=== PATIENT | female | born 1960 | race Caucasian/White ===

== ENCOUNTER → 2016-06-16 | Outpatient (REF) | payer MEDICARE, MEDICAID ==
[~2016-06-16] MED LIST: /PANT40TA; ABIL2TAB; ADDE10TA OR; BACT800T5 PO; BACTRIM DS PO; CALC600T68 PO; CALCCHW12; CALCIUM PO; CONC54TA4 PO; FERR325T3 PO; FLUO40CA PO; FLUO60TA PO; LEVO112T; LEVO112T25 PO; LEVO125T3 PO; LEVO25TA2; METH54TA PO; METH54TA2 PO; OMEP40CA2 PO; PANT40TA2 PO; PREV15CA; PROZ20CA; QUET30XR; QUET30XR PO; SERO1TAB2 PO; SERO400T3 PO; SIMV40TA2 PO; TRAZ100T4 PO; TRAZ150T; TRAZ150T14 PO; TRAZ300T2; VIT D PO; VITA200028 PO; VITA250L PO; WELL75TA; ZOCO40TA; ZOCO5TAB
[2016-06-17 12:35] LABS: ALBUMIN/GLOBULIN RATIO 1.18 (1.00-1.93); ALKALINE PHOSPHATASE 89 U/L (45-117); ALT/SGPT 31 U/L (12-78); ANION GAP 10 MEQ/L (8-16); AST/SGOT 17 U/L (15-37); BILIRUBIN,TOTAL 0.4 MG/DL (0.2-1.0); BLOOD UREA NITROGEN 14 MG/DL (7-18); CALCIUM LEVEL 9.2 MG/DL (8.5-10.1); CARBON DIOXIDE LEVEL 28 MEQ/L (21-32); CHLORIDE LEVEL 104 MEQ/L (98-107); CHOLESTEROL LEVEL 190 MG/DL (<200); CREATININE FOR GFR 0.78 MG/DL (0.55-1.02); FREE T4 0.82 NG/DL (0.76-1.46); GLOMERULAR FILTRATION RATE > 60.0 (>51); GLUCOSE, FASTING 82 MG/DL (70-105); POTASSIUM SERUM 4.2 MEQ/L (3.5-5.1); SODIUM LEVEL 142 MEQ/L (136-145); TOTAL PROTEIN 7.4 GM/DL (6.4-8.2); TRIGLYCERIDES LEVEL 130 MG/DL (<150)
== END ==
LOC: M SFHCPLAZ 15:09 → M LABDRAWC 15:20
PROVIDERS: ATTEND Family Medicine
DX: E78.2 Mixed hyperlipidemia (principal); E03.9 Hypothyroidism, unspecified; R73.01 Impaired fasting glucose

== ENCOUNTER → 2016-08-19 | Outpatient (REF) | payer MEDICARE, MEDICAID, OTHER | LOC: M SMT 13:10 | PROVIDERS: ATTEND Nurse Practitioner Family | DX: N39.41 Urge incontinence (principal) | CPT/HCPCS: 51798; 81001; 87086; G0463 ==

== ENCOUNTER → 2016-09-21 | Outpatient (CLI) | payer MEDICARE | LOC: M WHC 13:47 | PROVIDERS: ATTEND Family Medicine | DX: Z12.31 Encounter for screening mammogram for malignant neoplasm of breast (principal) ==

== ENCOUNTER → 2016-11-19 | Outpatient (REF) | payer MEDICARE, MEDICAID | LOC: M SFHCWAGY 14:08 | PROVIDERS: ATTEND Nurse Practitioner Family | DX: Z12.72 Encounter for screening for malignant neoplasm of vagina (principal) ==

== ENCOUNTER → 2016-11-19 | Outpatient (CLI) | payer MEDICARE, MEDICAID ==
[~2016-11-19] MED LIST changes: +BRIN1TAB3 PO; +CIPR-249 PO; +CRES10TA32 PO; +DRIS50002 PO; +FERR1TAB8 PO; -LEVO125T3 PO; +LEVO125T4 PO; +OXCA300T PO; +PARO5TAB PO; +PAXI30TA11 PO; +ROSU40TA PO; +TRAZ-136 PO; -TRAZ100T4 PO; -TRAZ150T14 PO; +TRAZ1TAB14 PO; +TRIA1CR TOP; +vitamin d PO
--- NOTE | 2016-11-19 14:51 | REPMRS ---
Patient History The patient states she had a clinical breast exam in 11/14 Patient is postmenopausal. No known family history of cancer. Digital Woman Screen Mammo: November 19, 2016 - Exam #: [id number] Bilateral CC and MLO view(s) were taken. Technologist: Radha Long, Technologist Prior study comparison: November 19, 2015, digital woman screen mammo performed at [facility] to [facility]. September 19, 2014, digital woman screen mammo performed at [facility] to [facility]. FINDINGS: There are scattered fibroglandular densities. There has been no change in the appearance of the mammogram from the prior studies. There is a mild amount of residual fibroglandular tissue which is fairly symmetric. There is no interval development of dominant mass, architectural distortion, or clustered microcalcification suggestive of malignancy. ASSESSMENT: BI-RADS/ACR category 1 mammogram. Negative. Recommendation Routine screening mammogram in 1 year (for women over age 40). This mammogram was interpreted with the aid of an FDA-approved computer-aided dectection system. Electronically Signed By: Dragan Maldonado MD 11/19/16 [id number]
== END ==
LOC: M WHC 13:28
PROVIDERS: ATTEND Nurse Practitioner Family
DX: Z12.31 Encounter for screening mammogram for malignant neoplasm of breast (principal); Z78.0 Asymptomatic menopausal state; Z12.72 Encounter for screening for malignant neoplasm of vagina; Z12.12 Encounter for screening for malignant neoplasm of rectum
CPT/HCPCS: 82270; G0123; G0202; G0463

== ENCOUNTER → 2016-12-09 | Outpatient (REF) | payer MEDICARE, MEDICAID ==
[2016-12-09 18:18] LABS: VITAMIN B12 LEVEL 516 PG/ML (247-911)
[2016-12-09 18:21] LABS: ALBUMIN 3.9 GM/DL (3.2-5.2); ALBUMIN/GLOBULIN RATIO 1.18 (1.00-1.93); ALKALINE PHOSPHATASE 66 U/L (45-117); ALT/SGPT 32 U/L (12-78); ANION GAP 7 MEQ/L (8-16); AST/SGOT 24 U/L (15-37); BILIRUBIN,TOTAL 0.3 MG/DL (0.2-1.0); BLOOD UREA NITROGEN 12 MG/DL (7-18); CALCIUM LEVEL 9.2 MG/DL (8.5-10.1); CARBON DIOXIDE LEVEL 25 MEQ/L (21-32); CHLORIDE LEVEL 107 MEQ/L (98-107); CHOLESTEROL LEVEL 158 MG/DL (<200); CREATININE FOR GFR 0.83 MG/DL (0.55-1.02); FERRITIN 51 NG/ML (8-252); FREE T4 0.84 NG/DL (0.76-1.46); GLOMERULAR FILTRATION RATE > 60.0 (>51); GLUCOSE, FASTING 97 MG/DL (70-105); PERCENT SATURATION 13.8 % (13.2-37.4); POTASSIUM SERUM 4.4 MEQ/L (3.5-5.1); SODIUM LEVEL 139 MEQ/L (136-145); TOTAL IRON BINDING CAPACITY 341 UG/DL (250-450); TOTAL PROTEIN 7.2 GM/DL (6.4-8.2); TRIGLYCERIDES LEVEL 115 MG/DL (<150)
[2016-12-09 18:32] LABS: BASO % 0.6 % (0.0-1.0); EOS # 0.1 K/mm3 (0.0-0.50); EOS % 0.8 % (0.0-3.0); LARGE UNSTAINED CELL # 0.1 K/mm3 (0.0-0.4); LARGE UNSTAINED CELL % 1.4 % (0.0-4.0); LYMPH # 1.9 K/mm3 (1.5-4.5); MEAN CORPUSCULAR HEMOGLOBIN 30.5 pg (27.0-33.0); MEAN CORPUSCULAR HGB CONC 33.3 g/dl (32.0-36.5); MEAN CORPUSCULAR VOLUME 91.5 fl (80.0-96.0); MONO # 0.4 K/mm3 (0.0-0.8); MONO % 4.6 % (0.0-5.0); NEUTROPHILS # 6.5 K/mm3 (1.8-7.7); NEUTROPHILS % 71.6 % (36.0-66.0); PLATELET COUNT, AUTOMATED 282 k/mm3 (150-450); RED CELL DISTRIBUTION WIDTH 13.9 % (11.5-14.5)
== END ==
LOC: M SFHCCLAY 08:19
PROVIDERS: ATTEND Family Medicine
DX: D50.9 Iron deficiency anemia, unspecified (principal); E78.2 Mixed hyperlipidemia; E53.8 Deficiency of other specified B group vitamins

== ENCOUNTER → 2017-02-10 | Outpatient (REF) | payer MEDICARE, MEDICAID ==
[2017-02-11 13:50] LABS: FREE T4 1.05 NG/DL (0.76-1.46)
[2017-02-11 14:09] LABS: ADD MANUAL DIFFER YES; MEAN CORPUSCULAR HEMOGLOBIN 31.1 pg (27.0-33.0); MEAN CORPUSCULAR HGB CONC 33.8 g/dl (32.0-36.5); PLATELET COUNT, AUTOMATED 271 k/mm3 (150-450); RED CELL DISTRIBUTION WIDTH 12.7 % (11.5-14.5); WHITE BLOOD COUNT 6.4 K/mm3 (4.0-10.0)
[2017-02-11 15:01] LABS: BASOPHILS 2 % (0-4); EOSINOPHILS 1 % (0-5)
== END ==
LOC: M SFHCCLAY 15:22
PROVIDERS: ATTEND Family Medicine
DX: D50.9 Iron deficiency anemia, unspecified (principal); R73.01 Impaired fasting glucose; E03.9 Hypothyroidism, unspecified

== ENCOUNTER 2017-03-23 14:14 | Inpatient (IN) | payer MEDICARE, MEDICAID ==
[~2017-03-23] VITALS: Ht 157.5 cm; Wt 85.0 kg
[~2017-03-23 14:14] MED LIST changes: -BRIN1TAB3 PO; -CIPR-249 PO; -CRES10TA32 PO; -DRIS50002 PO; -FERR1TAB8 PO; -OXCA300T PO; -PARO5TAB PO; -PAXI30TA11 PO; -ROSU40TA PO; -TRIA1CR TOP; -vitamin d PO
[2017-03-23] MEDS ORDERED: vitamin d PO (14:37)
[2017-03-23] MEDS ORDERED: SERO1TAB2 PO (14:37)
[2017-03-23] MEDS ORDERED: BRIN1TAB3 PO (14:37)
[2017-03-23] MEDS ORDERED: CRES10TA32 PO (14:37)
[2017-03-23] MEDS ORDERED: TRAZ-136 PO (14:37)
[2017-03-23] MEDS ORDERED: TRIA1CR TOP (14:51)
[2017-03-23] MEDS ORDERED: NICOTINE 21MG/24HR 1 EA TRANSDERMAL TD ONE (15:15)
[2017-03-23 15:16] LABS: MEAN CORPUSCULAR HEMOGLOBIN 29.5 pg (27.0-33.0); MEAN CORPUSCULAR HGB CONC 33.9 g/dl (32.0-36.5); MEAN CORPUSCULAR VOLUME 87.1 fl (80.0-96.0); PLATELET COUNT, AUTOMATED 319 10^3/uL (150-450); RED CELL DISTRIBUTION WIDTH 13.2 % (11.5-14.5); WHITE BLOOD COUNT 9.8 10^3/uL (4.0-10.0)
[2017-03-23 15:51] LABS: METHADONE URINE NEGATIVE (NEGATIVE)
[2017-03-23 16:03] LABS: ALBUMIN 4.3 GM/DL (3.2-5.2); ALBUMIN/GLOBULIN RATIO 1.23 (1.00-1.93); ALKALINE PHOSPHATASE 71 U/L (45-117); ALT/SGPT 42 U/L (12-78); ANION GAP 9 MEQ/L (8-16); AST/SGOT 26 U/L (15-37); BILIRUBIN,DIRECT 0.1 MG/DL (0.0-0.2); BILIRUBIN,TOTAL 0.3 MG/DL (0.2-1.0); BLOOD UREA NITROGEN 16 MG/DL (7-18); CALCIUM LEVEL 9.3 MG/DL (8.5-10.1); CARBON DIOXIDE LEVEL 25 MEQ/L (21-32); CHLORIDE LEVEL 105 MEQ/L (98-107); GLOMERULAR FILTRATION RATE > 60.0 (>51); GLUCOSE, FASTING 98 MG/DL (70-105); POTASSIUM SERUM 4.2 MEQ/L (3.5-5.1); SODIUM LEVEL 139 MEQ/L (136-145); TOTAL PROTEIN 7.8 GM/DL (6.4-8.2)
[2017-03-23] MEDS ORDERED: FERR1TAB8 PO (16:07)
[2017-03-23] MEDS ORDERED: ROSU40TA PO (16:07)
[2017-03-23] MEDS ORDERED: DRIS50002 PO (16:07)
[2017-03-23] MEDS ORDERED: diphenhydrAMINE 25 MG CAP PO PRN (16:45)
[2017-03-23] MEDS ORDERED: ACETAMINOPHEN TAB 650MG DOSE (2X325MG) PO PRN (16:45)
[2017-03-23] MEDS ORDERED: MAALOX 30 ML SUSP *UDC PO PRN (16:45)
[2017-03-23 17:55] VITALS: BP 112/67
[2017-03-23] MEDS ORDERED: TRIAMCINOLONE ACET 0.1% CREAM 80 GM TOP SCH (21:00)
[2017-03-23] MEDS ORDERED: traZODone 100 MG TAB PO SCH ×2 (21:00)
[2017-03-23] MEDS: OMEPRAZOLE 20 MG CAP PO SCH (21:13)
[2017-03-23] MEDS: QUEtiapine FUMARATE 100 MG TAB PO SCH (21:13)
[2017-03-23] MEDS: CALCIUM/VITAMIN D 500 MG TAB PO SCH (21:13)
[2017-03-24] MEDS: LEVOTHYROXINE 125MCG TABLET (0.125MG) PO SCH (06:16)
[2017-03-24 07:06] VITALS: BP 122/64
[2017-03-24] MEDS: NICOTINE 21MG/24HR 1 EA TRANSDERMAL TD SCH (08:22)
[2017-03-24] MEDS: CALCIUM/VITAMIN D 500 MG TAB PO SCH ×2 (08:22→21:01)
[2017-03-24] MEDS: OMEPRAZOLE 20 MG CAP PO SCH ×2 (08:22→21:01)
[2017-03-24] MEDS: FERROUS SULFATE 325MG TAB PO SCH (08:22)
--- NOTE | 2017-03-24 09:37 | HPEPDOC ---
[facility] Medical History & Physical Date of Admission Mar 23, 2017 History and Physical PCP: Dr Ken ATTENDING: Dr. Sameer Morton HPI: 56yoF admitted to [facility] for unspecified depressive disorder, being medically examined today. Patient states she has been applying triamcinolone cream to a rash on the buttocks. She states this has been helping with the itching however the rash has persisted. Denies any fevers, chills, weakness, fatigue, ARIAS, CP, SOB, cough, palpitations, abdominal pain, N/V/D or changes in bowel or bladder habits. PMHx: Fibromyalgia Anxiety Depression Insomnia Hypothyroid GERD Dyslipidemia Iron deficiency anemia Vitamin D deficiency PSHX: Pacemaker 12/11 Hysterectomy Left clavicle fracture repair 1979 SOCHX: Resides in: [facility] Marital Status: Kids: 2 Employment: Retired machinery cleaner/senior staff psychologist Tobacco use: 10 per day ETOH: Denies Illicit Drugs: Denies IV Drug Use: Denies Tattoos done unprofessionally: Denies FAMHX: Mother: Alive, well Father: , 34 years old [place]. Siblings: One brother one sister Alive, depression Children: Alive, OCD, anxiety Unexpected deaths due to medical reasons: Maternal grandmother suicide, overdose. ROS: As noted in HPI, otherwise 11pt ROS of systems reviewed and remarkable only for LMP NA, hysterectomy. PE: GEN: 56 yo F, appears stated age. Well-nourished, well developed. No acute distress. Alert and oriented x 3. Pleasant, interactive. HEENT: Normocephalic, atraumatic. Pupils are equal, round, and reactive to light. Extraocular movements are intact. No nystagmus appreciated. Sclera are nonicteric. Conjunctiva without injection. Nose midline. Nasal turbinates without bogginess. EACs both patent BL. TMs both visualized and mcclellan with good cone of light, no bulging or erythema. No facial asymmetry. Moist mucous membranes. Dentition fair. Pharynx pink and moist, no cobblestoning. Neck supple , trachea midline. No lymphadenopathy or thyromegaly appreciated. CHEST: Regular rate and rhythm, +S1, +S2 LUNGS: Clear to auscultation bilaterally. No wheezes, rales, or rhonchi. Breathing appears symmetric and easy. Patient is speaking in full sentences. No accessory muscle use. ABD: Round, soft, non-tender, non-distended. +Bowel sounds throughout. No rebound or guarding. No costovertebral angle tenderness. EXT: Pulses 2+ bilaterally dorsalis pedis and radial. No lower extremity edema appreciated. SKIN: Braman, dry, warm. Capillary refill <2sec. mildly erythematous rash with scaling is noted, circular in nature buttock area bilaterally. NEURO: Alert and oriented x 3. Cranial nerves III-XII are intact. No focal deficits appreciated. EKG: Pending. A&P: 56yoF admitted to [facility] for unspecified depressive disorder 1. Psych. Plan per Psychiatry. Obtain baseline EKG to assure the safety of psychiatric medications as they can prolong the QT interval. 2. Nicotine dependence. Patch available. 3. Rash, Buttocks B/L. Apply Lotrisone cream to area BID. 4. Follow up with PCP on discharge. 5. Hypothyroid. Continue levothyroxine under 25 g daily. 6. GERD. Continue Prilosec 40 mg by mouth twice a day. 7. Dyslipidemia. Continue store 40 mg daily. 8. History of iron deficiency. Continue ferrous sulfate 325 mg daily. 9. Vitamin D deficiency. Continue Drisdol 50,000 units every 2 weekly. 10. Obesity. BMI is noted to be 34.1. TSH is within normal limits. Hemoglobin A1c 02/14 is noted to be 5.8. 11. Staff member Stephanie JARAMILLO present throughout exam. Vital Signs Vital Signs Date Time Temp Pulse Resp B/P (MAP) Pulse Ox O2 Delivery O2 Flow Rate FiO2 03/24/17 07:06 97.2 76 16 122/64 (83) Room Air 03/23/17 17:15 98 Laboratory Data Labs 24H Laboratory Tests 2 03/23/17 15:06: Nucleated Red Blood Cells % (auto) 0.0, Anion Gap 9, Glomerular Filtration Rate > 60.0, Calcium Level 9.3, Aspartate Amino Transf (AST/SGOT) 26, Alanine Aminotransferase (ALT/SGPT) 42, Alkaline Phosphatase 71, Total Bilirubin 0.3, Direct Bilirubin 0.1, Total Protein 7.8, Albumin 4.3, Albumin/Globulin Ratio 1.23, Thyroid Stimulating Hormone (TSH) 2.380, Salicylates Level < 1.7L, Urine Amphetamines Screen NEGATIVE, Urine Benzodiazepines Screen NEGATIVE, Urine Opiates Screen NEGATIVE, Urine Methadone Screen NEGATIVE, Acetaminophen Level < 2.0L, Urine Barbiturates Screen NEGATIVE, Urine Phencyclidine Screen NEGATIVE, Urine Cocaine Metabolite Screen NEGATIVE, Urine Cannabinoids Screen NEGATIVE, Ethyl Alcohol Level 0.004 CBC/BMP Laboratory Tests 03/23/17 15:06 Red Blood Count 4.81, Mean Corpuscular Volume 87.1, Mean Corpuscular Hemoglobin 29.5, Mean Corpuscular Hemoglobin Concent 33.9, Red Cell Distribution Width 13.2 Home Medications Scheduled Calcium/Vitamin D (Calcium 600+D3 600-400 mg-Unit) 1 Tab Tab, 1 TAB PO BID for supplement Ferrous Sulfate (Ferrous Sulfate) 325 Mg Tab, 325 MG PO DAILY Levothyroxine Sodium (Synthroid) 125 Mcg Tab, 125 MCG PO DAILY for hypothyroid Omeprazole (Omeprazole) 40 Mg Cap, 40 MG PO BID for gerd Quetiapine Fumarate (Seroquel) 300 Mg Tab, 300 MG PO QHS Rosuvastatin Calcium (Rosuvastatin Calcium) 40 Mg Tab, 40 MG PO DAILY Trazodone HCl (Trazodone HCl) 100 Mg Tab, 200 MG PO QHS Triamcinolone Acet (Triamcinolone Acetonide 0.1% Crm) 1 Dose/15 Gm Cr, 1 DOSE TOP BID APPLY RECTALLY Vitamin D (Drisdol) 50,000 Unit Cap, 50,000 UNIT PO Q2WK EVERY OTHER WEDNESDAY Vortioxetine Hydrobromide (Trintellix) 20 Mg Tab, 20 MG PO DAILY Allergies Coded Allergies: No Known Drug Allergy (Verified Allergy, Unknown, 09/06/12) Jolene Carbajal Mar 24, 2017 09:37
[2017-03-24] MEDS: PARoxetine 10MG TABLET PO SCH (14:32)
[2017-03-24] MEDS: OXcarbazepine 150 MG TAB PO SCH ×2 (14:32→21:02)
[2017-03-24] MEDS: LOTRISONE CREAM 15 GM (BETAMETH/CLOTRIMAZOLE) TOP SCH ×2 (14:33→21:01)
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
[2017-03-24 18:00] VITALS: BP 140/82
[2017-03-24] MEDS: ROSUVASTATIN 10 MG TAB (CRESTOR) PO SCH (21:01)
[2017-03-24] MEDS: QUEtiapine FUMARATE 100 MG TAB PO SCH (21:02)
[2017-03-25] MEDS: LEVOTHYROXINE 125MCG TABLET (0.125MG) PO SCH (06:03)
[2017-03-25 07:02] VITALS: BP 102/63
[2017-03-25] MEDS: OMEPRAZOLE 20 MG CAP PO SCH ×2 (08:35→21:13)
[2017-03-25] MEDS: NICOTINE 21MG/24HR 1 EA TRANSDERMAL TD SCH (08:35)
[2017-03-25] MEDS: LOTRISONE CREAM 15 GM (BETAMETH/CLOTRIMAZOLE) TOP SCH ×2 (08:35→21:12)
[2017-03-25] MEDS: CALCIUM/VITAMIN D 500 MG TAB PO SCH ×2 (08:36→21:13)
[2017-03-25] MEDS: PARoxetine 10MG TABLET PO SCH (08:36)
[2017-03-25] MEDS: FERROUS SULFATE 325MG TAB PO SCH (08:36)
[2017-03-25] MEDS: OXcarbazepine 150 MG TAB PO SCH ×2 (08:36→21:13)
[2017-03-25] MEDS: MOM 30ML SUSPENSION UDC PO PRN (08:39)
[2017-03-25] MEDS ORDERED: OXcarbazepine 150 MG TAB PO ONE (10:45)
[2017-03-25] MEDS ORDERED: PARoxetine 10MG TABLET PO ONE (10:45)
[2017-03-25 18:00] VITALS: BP 108/64
--- NOTE | 2017-03-25 20:13 | MHIPN ---
DATE: 03/25/2017 HISTORY: 56-year-old female with history of depression and anxiety admitted on a 9.39 legal status. The patient was expressing suicidal ideation and was unable to contract for safety. MEDICATIONS: - Paxil 10 mg by mouth every morning - Trileptal 75 mg by mouth twice a day - Seroquel 300 mg by mouth nightly SUBJECTIVE: "I'm feeling about the same, I'm crying all day long." OBJECTIVE: No major changes from yesterday. The patient is very labile, tearful, and states that she cries for minimal things happening around her. Patient is denying side effect from the medication. Patient was able to sleep with the help of Seroquel. Discussed treatment plan. MENTAL STATUS EXAMINATION: Patient is dressed in [facility]. Patient is cooperative, has poor eye contact. Speech is slow and monotone. Mood is depressed and anxious. Affect is restricted. No delusions or hallucinations. Mood is fair. Patient is fully oriented. Associations are intact. Thinking is logical. Thought content is appropriate. Patient continues without suicidal ideation. Denies homicidal thoughts. Insight and judgment is poor. ASSESSMENT: 1. Major depressive disorder. 2. Generalized anxiety disorder. 3. Attention deficit disorder (ADD). PLAN: 1. Increase Paxil to 20 mg by mouth every morning. 2. Increase Trileptal to 150 mg by mouth twice a day. 3. Continue with Seroquel 300 mg by mouth nightly. 4. Continue medication management, individual and group therapy.
[2017-03-25] MEDS: ROSUVASTATIN 10 MG TAB (CRESTOR) PO SCH (21:13)
[2017-03-25] MEDS: QUEtiapine FUMARATE 100 MG TAB PO SCH (21:13)
[2017-03-26] MEDS: LEVOTHYROXINE 125MCG TABLET (0.125MG) PO SCH (05:57)
[2017-03-26 06:53] VITALS: BP 100/53
[2017-03-26] MEDS: FERROUS SULFATE 325MG TAB PO SCH (08:27)
[2017-03-26] MEDS: PARoxetine 20 MG TAB PO SCH (08:27)
[2017-03-26] MEDS: OMEPRAZOLE 20 MG CAP PO SCH ×2 (08:27→21:30)
[2017-03-26] MEDS: NICOTINE 21MG/24HR 1 EA TRANSDERMAL TD SCH (08:27)
[2017-03-26] MEDS: OXcarbazepine 150 MG TAB PO SCH (08:28)
[2017-03-26] MEDS: CALCIUM/VITAMIN D 500 MG TAB PO SCH ×2 (08:28→21:29)
[2017-03-26] MEDS: LOTRISONE CREAM 15 GM (BETAMETH/CLOTRIMAZOLE) TOP SCH ×2 (08:28→21:29)
[2017-03-26] MEDS: MOM 30ML SUSPENSION UDC PO PRN (14:28)
[2017-03-26 18:00] VITALS: BP 99/58
[2017-03-26] MEDS: ROSUVASTATIN 10 MG TAB (CRESTOR) PO SCH (21:29)
[2017-03-26] MEDS: OXcarbazepine 300 MG TAB PO SCH (21:30)
[2017-03-26] MEDS: QUEtiapine FUMARATE 100 MG TAB PO SCH (21:30)
[2017-03-27] MEDS: LEVOTHYROXINE 125MCG TABLET (0.125MG) PO SCH (05:56)
[2017-03-27 07:06] VITALS: BP 98/65
[2017-03-27] MEDS: PARoxetine 20 MG TAB PO SCH (08:46)
[2017-03-27] MEDS: OMEPRAZOLE 20 MG CAP PO SCH ×2 (08:46→20:49)
[2017-03-27] MEDS: CALCIUM/VITAMIN D 500 MG TAB PO SCH ×2 (08:46→20:49)
[2017-03-27] MEDS: FERROUS SULFATE 325MG TAB PO SCH (08:46)
[2017-03-27] MEDS: LOTRISONE CREAM 15 GM (BETAMETH/CLOTRIMAZOLE) TOP SCH ×2 (08:46→20:49)
[2017-03-27] MEDS: OXcarbazepine 300 MG TAB PO SCH ×2 (08:46→20:49)
[2017-03-27] MEDS: NICOTINE 21MG/24HR 1 EA TRANSDERMAL TD SCH (08:48)
--- NOTE | 2017-03-27 14:09 | MHIPN ---
DATE OF SERVICE: 03/26/2017 HISTORY: 56-year-old female with history of depression and anxiety admitted on a 9.39 legal status. She was very depressed, expressing suicidal thoughts and unable to contract for safety. MEDICATIONS: - Paxil 20 mg by mouth every morning - Trileptal 150 mg by mouth twice a day - Seroquel 300 mg by mouth at bedtime SUBJECTIVE: "I am not feeling better, I am very anxious". OBJECTIVE: The patient continues very depressed, although she reports that the day before she was crying all the time and appears to be holding her emotions better today. The patient is able to contract for safety while in the hospital. The patient is denying side effect from the medication. The patient could not sleep well last night in spite of the medication. There is no evidence of psychotic symptoms. No auditory or visual hallucinations or delusions. MENTAL STATUS EXAMINATION: The patient is dressed in [facility]. The patient is cooperative. She has fair eye contact. Speech is slow and monotone. Mood is depressed and very anxious. Affect is labile. No evidence of delusions or hallucinations. Memory is fair. Patient is fully oriented. Associations are intact. Thinking is logical. Thought content is appropriate. The patient continues to have suicidal thoughts, but is able to contract for safety during the interview. Insight and judgment is limited. ASSESSMENT: 1. Major depressive disorder. 2. Generalized anxiety disorder. 3. Attention deficit disorder. PLAN: 1. Continue Paxil 20 mg by mouth every morning. 2. Increase Trileptal to 300 mg by mouth twice a day. 3. Continue Seroquel 300 mg by mouth at bedtime. 4. Continue medication management, individual and group therapy.
[2017-03-27 18:00] VITALS: BP 105/70
[2017-03-27] MEDS: QUEtiapine FUMARATE 100 MG TAB PO SCH (20:49)
[2017-03-27] MEDS: ROSUVASTATIN 10 MG TAB (CRESTOR) PO SCH (20:49)
[2017-03-28 06:00] VITALS: BP 101/53
[2017-03-28] MEDS: LEVOTHYROXINE 125MCG TABLET (0.125MG) PO SCH (06:16)
[2017-03-28] MEDS: NICOTINE 21MG/24HR 1 EA TRANSDERMAL TD SCH (08:49)
[2017-03-28] MEDS: OMEPRAZOLE 20 MG CAP PO SCH ×2 (08:55→21:09)
[2017-03-28] MEDS: OXcarbazepine 300 MG TAB PO SCH ×2 (08:55→21:09)
[2017-03-28] MEDS: CALCIUM/VITAMIN D 500 MG TAB PO SCH ×2 (08:55→21:09)
[2017-03-28] MEDS: FERROUS SULFATE 325MG TAB PO SCH (08:55)
[2017-03-28] MEDS: PARoxetine 20 MG TAB PO SCH (08:55)
[2017-03-28] MEDS: LOTRISONE CREAM 15 GM (BETAMETH/CLOTRIMAZOLE) TOP SCH ×2 (08:57→21:10)
--- NOTE | 2017-03-28 14:33 | MHIPN ---
DATE OF SERVICE: 03/27/2017 HISTORY: 56-year-old female with history of depression and anxiety admitted on 9.39 legal status. The patient was very depressed and expressing suicidal thoughts and unable to contract for safety. MEDICATIONS: - Paxil 20 mg by mouth every morning - Trileptal 300 mg by mouth twice a day - Seroquel 300 mg by mouth at bedtime SUBJECTIVE: "I am not feeling well". OBJECTIVE: The patient is labile, tearful this morning. Says could not sleep last night as she kept waking up very often. She is very anxious. Denies side effect from the medication. MENTAL STATUS EXAMINATION: The patient is dressed in [facility]. The patient is cooperative during the exam. Speech is slow and monotone. Mood is depressed and anxious. Affect is labile. No delusions or hallucinations. Memory is fair. Patient is fully oriented. Associations are intact. Thinking is logical. Thought content is appropriate. Patient continues with intermittent suicidal thoughts. No homicidal ideation. Insight and judgment is limited. ASSESSMENT: 1. Major depressive disorder. 2. Generalized anxiety disorder. 3. Attention deficit disorder. PLAN: 1. Continue with Paxil 20 mg by mouth every morning. 2. Continue Trileptal 300 mg by mouth twice a day. 3. Continue Seroquel 300 mg by mouth at bedtime. 4. Continue medication management, individual and group therapy.
[2017-03-28] MEDS: MOM 30ML SUSPENSION UDC PO PRN (16:47)
[2017-03-28 18:00] VITALS: BP 106/72
[2017-03-28] MEDS: ROSUVASTATIN 10 MG TAB (CRESTOR) PO SCH (21:09)
[2017-03-28] MEDS: QUEtiapine FUMARATE 100 MG TAB PO SCH (21:09)
[2017-03-29] MEDS: LEVOTHYROXINE 125MCG TABLET (0.125MG) PO SCH (05:57)
[2017-03-29 06:23] VITALS: BP 98/50
[2017-03-29] MEDS: NICOTINE 21MG/24HR 1 EA TRANSDERMAL TD SCH (08:51)
[2017-03-29] MEDS: FERROUS SULFATE 325MG TAB PO SCH (08:53)
[2017-03-29] MEDS: OMEPRAZOLE 20 MG CAP PO SCH ×2 (08:54→20:27)
[2017-03-29] MEDS: OXcarbazepine 300 MG TAB PO SCH ×2 (08:54→20:27)
[2017-03-29] MEDS: PARoxetine 20 MG TAB PO SCH (08:54)
[2017-03-29] MEDS: CALCIUM/VITAMIN D 500 MG TAB PO SCH ×2 (08:54→20:27)
[2017-03-29] MEDS: LOTRISONE CREAM 15 GM (BETAMETH/CLOTRIMAZOLE) TOP SCH ×2 (08:55→20:28)
[2017-03-29 18:00] VITALS: BP 107/69
[2017-03-29] MEDS: CIPROFLOXACIN 500 MG TAB PO SCH (18:22)
[2017-03-29] MEDS: QUEtiapine FUMARATE 100 MG TAB PO SCH (20:27)
[2017-03-29] MEDS: ROSUVASTATIN 10 MG TAB (CRESTOR) PO SCH (20:27)
[2017-03-30] MEDS: CIPROFLOXACIN 500 MG TAB PO SCH ×2 (06:15→17:17)
[2017-03-30] MEDS: LEVOTHYROXINE 125MCG TABLET (0.125MG) PO SCH (06:15)
[2017-03-30 06:42] VITALS: BP 110/76
[2017-03-30] MEDS ORDERED: VITAMIN D 50,000 UNITS CAPSULE (ERGOCALCIFEROL 1.25MG) PO SCH (09:00)
[2017-03-30] MEDS: NICOTINE 21MG/24HR 1 EA TRANSDERMAL TD SCH (09:00)
[2017-03-30] MEDS: OMEPRAZOLE 20 MG CAP PO SCH ×2 (09:56→21:08)
[2017-03-30] MEDS: PARoxetine 10MG TABLET PO SCH (09:56)
[2017-03-30] MEDS: CALCIUM/VITAMIN D 500 MG TAB PO SCH ×2 (09:56→21:08)
[2017-03-30] MEDS: LOTRISONE CREAM 15 GM (BETAMETH/CLOTRIMAZOLE) TOP SCH ×2 (09:56→21:09)
[2017-03-30] MEDS: OXcarbazepine 300 MG TAB PO SCH ×2 (09:57→21:08)
[2017-03-30] MEDS: FERROUS SULFATE 325MG TAB PO SCH (09:57)
--- NOTE | 2017-03-30 12:34 | IPN ---
DATE OF SERVICE: 03/29/2017 56-year-old female with history of depression and anxiety admitted on a 9.39 legal status. Patient was very depressed expressing suicidal thoughts and unable to contract for safety. MEDICATIONS: - Paxil 20 mg by mouth every morning - Trileptal 300 mg by mouth twice daily - Seroquel 300 mg by mouth daily at bedtime SUBJECTIVE: "I am very anxious and I cry". OBJECTIVE: Patient continues labile and depressed, tearful intermittently during the interview. Patient denies side effect from the medication but also is not feeling better at this point. Patient is worried about her treatment. Reports insomnia. MENTAL STATUS EXAMINATION: Patient is dressed in [facility]. Patient is cooperative during the exam. Speech is low and monotone. Mood is depressed and anxious. Affect is labile. No evidence of delusions or hallucinations. Memory is fair. Patient is fully oriented. Associations are intact. Thinking is logical. Thought content is appropriate. Insight and judgment is limited. ASSESSMENT: 1. Depression. 2. Generalized anxiety disorder. 3. Attention deficit. PLAN: 1. Continue Paxil 20 mg by mouth daily every morning. 2. Continue Trileptal 300 mg by mouth twice daily. 3. Continue Seroquel 300 mg by mouth daily at bedtime 4. Continue medication management, individual and group therapy.
[2017-03-30 18:00] VITALS: BP 109/75
[2017-03-30] MEDS: QUEtiapine FUMARATE 100 MG TAB PO SCH (21:08)
[2017-03-30] MEDS: ROSUVASTATIN 10 MG TAB (CRESTOR) PO SCH (21:08)
[2017-03-31] MEDS: LEVOTHYROXINE 125MCG TABLET (0.125MG) PO SCH (06:00)
[2017-03-31] MEDS: CIPROFLOXACIN 500 MG TAB PO SCH (06:00)
[2017-03-31 07:01] VITALS: BP 100/58
[2017-03-31] MEDS: NICOTINE 21MG/24HR 1 EA TRANSDERMAL TD SCH (08:56)
[2017-03-31] MEDS: OMEPRAZOLE 20 MG CAP PO SCH (08:57)
[2017-03-31] MEDS: FERROUS SULFATE 325MG TAB PO SCH (08:57)
[2017-03-31] MEDS: PARoxetine 10MG TABLET PO SCH (08:57)
[2017-03-31] MEDS: CALCIUM/VITAMIN D 500 MG TAB PO SCH (08:57)
[2017-03-31] MEDS ORDERED: CIPR-249 PO (08:58)
[2017-03-31] MEDS: OXcarbazepine 300 MG TAB PO SCH (08:58)
[2017-03-31] MEDS ORDERED: PARO5TAB PO (08:58)
[2017-03-31] MEDS ORDERED: DRIS50002 PO (08:58)
[2017-03-31] MEDS ORDERED: OXCA300T PO (08:58)
[2017-03-31] MEDS: LOTRISONE CREAM 15 GM (BETAMETH/CLOTRIMAZOLE) TOP SCH (08:58)
--- NOTE | 2017-03-31 10:33 | MHIPN ---
DATE OF SERVICE: 03/30/2017 56-year-old female with history of depression and anxiety admitted with suicidal thoughts and unable to contract for safety. MEDICATIONS: - Paxil 20 mg by mouth every morning - Trileptal 300 mg by mouth twice a day - Seroquel 300 mg by mouth nightly SUBJECTIVE: "I've been crying all morning". OBJECTIVE: Patient continues depressed and labile. She continues tearful. However, she denies side effect from the medications. She is highly anxious and says that cannot sleep in the hospital. We discussed the treatment plan. Patient denies suicidal ideation. We will schedule a family meeting. MENTAL STATUS EXAMINATION: Patient dressed in [facility]. Patient is cooperative with exam. Speech is low and monotone. Mood is depressed and anxious. Affect is labile. No evidence of delusions or hallucinations. Memory is fair. Patient is fully oriented. Associations are intact. Thinking is logical. Thought content is appropriate. Patient is denying suicidal ideation. Insight and judgment is limited. ASSESSMENT: 1. Depression. 2. Generalized anxiety disorder. 3. Attention deficit. PLAN: 1. Increase Paxil to 30 mg by mouth every morning. 2. Continue Trileptal 300 mg by mouth twice a day. 3. Continue Seroquel 300 mg by mouth nightly. 4. Continue medication management, individual and group therapy. 5. Patient is subhash for safety, is denying suicidal ideation. We will schedule a family meeting fro tomorrow and maybe discharge after the family meeting if patient continues denying suicidal thoughts and wait for the medications to be effective in outpatient basis.
[2017-03-31] MEDS ORDERED: PAXI30TA11 PO (14:10)
--- NOTE | 2017-04-01 11:58 | MHDS ---
DATE OF ADMISSION: 03/23/2017 DATE OF DISCHARGE: 03/31/2017 LEGAL STATUS AT ADMISSION: 9.39 legal status. HISTORY OF PRESENT ILLNESS: 56-year-old female with history of major depressive disorder, admitted on a 9.39 legal status. According to the records, patient was seen by Dr. Gonsalez and she told her she was very depressed and having suicidal thought. She was sent to emergency department and reported "I don't have interest on anything at all." Patient reported very low energy, feeling helpless, hopeless, worthless and suicidal ideation. There was no evidence of psychotic symptoms. No auditory or visual hallucinations or delusions. Patient reported that her first episode of depression was when she was 27 after 6 months of the of the second child. Said at that time the worse symptom was anxiety and that anxiety runs in the family. She stated that she has tendency to worry about everything and she finds herself preoccupied all the time. It is reported in the chart that she was started on Trintellix but says that this medication "is not helping." She also states that "this is the worst I felt in many years." LABORATORIES AT ADMISSION: Her CBC was unremarkable. CMP within normal limits. TSH within normal limits. Urine drug screen is negative. Blood alcohol level is negative. HOSPITAL COURSE: After the first evaluation, and given the fact that patient have poor results with prior to admission medication, it was decided to start Paxil at 10 mg by mouth every morning, which she tolerated it well, and was slowly increased up to 30 mg. She was also started on Trileptal increased up to 300 mg by mouth twice a day, and she continued taking Seroquel 300 mg by mouth nightly as she was taking in outpatient basis. It could be observed that one of the main problems with this patient is anxiety. She has tendency to worry about everything. She tolerated it well the medications. However, she did not tolerate well the hospitalization and was having problems staying asleep because of the roommates or activity of the unit or simply the rounding of the staff that has to check on patients. So, we discussed the treatment plan. Patient is denying any suicidal thoughts, is subhash for safety, and we talked about that we need to wait until the medication is effective, but in light that she is not having any suicidal thoughts, there is no evidence of any psychotic symptom, no auditory or visual hallucinations or delusions that she could be perfectly treated in outpatient basis. A meeting with the family was held before admission. So the patient is discharged on 03/31/2017 in stable condition, although she continues to feel depressed and anxiety, but she will be awaiting for the results of the current medication. MENTAL STATUS EXAMINATION AT DISCHARGE: Patient is dressed in casual clothes. Patient is cooperative. Speech is clear, coherent, with normal rate and is spontaneous. Patient has good eye contact. Mood is depressed and anxious. Affect is labile. Patient is oriented to time, place, person and situation. Maintains attention and concentration correctly. Instant recall, recent and remote memory are intact. Thought processes are chronological and goal directed. Patient does not have auditory or visual hallucinations. Patient does not have paranoid, persecutory, somatic, grandiose or buddhist delusions. Patient denies suicidal or homicidal ideation. Judgment and insight are fair. DISCHARGE DIAGNOSES: AXIS I: Major depressive disorder, generalized anxiety disorder,. attention deficit disorder (ADD0 by history, and alcohol dependency in complete recovery. AXIS II: Deferred. AXIS III: Fibromyalgia, hypothyroidism, gastroesophageal reflux disease (GERD), hypercholesterolemia, and history of bradycardia with pacemaker insertion. MEDICATIONS AT DISCHARGE: - Paxil 30 mg by mouth every morning - Trileptal 300 mg by mouth twice a day - Seroquel 300 mg by mouth nightly CONDITION AT DISCHARGE: Stable. No suicidal or homicidal ideation. No auditory or visual hallucinations. No delusions. INSTRUCTIONS TO THE PATIENT: Patient is to continue taking her medications as prescribed and followup appointments. She is advised to maintain absolute sobriety from drugs and alcohol. Patient has scheduled appointments for medication management, individual psychotherapy and primary care physician.
== END 2017-03-31 12:30 | disposition home or self-care (01) | DRG 881 ==
LOC: M ED 14:14 → M ED INP 16:42 → M PSY 17:22
PROVIDERS: ADMIT Psychiatry & Neurology Psychiatry; ATTEND Psychiatry & Neurology Psychiatry
DX: F32.9 Major depressive disorder, single episode, unspecified (principal); R45.851 Suicidal ideations; F41.1 Generalized anxiety disorder; F10.21 Alcohol dependence, in remission; F98.8 Other specified behavioral and emotional disorders with onset usually occurring in childhood and adolescence; E03.9 Hypothyroidism, unspecified; E78.5 Hyperlipidemia, unspecified; F17.210 Nicotine dependence, cigarettes, uncomplicated; R21 Rash and other nonspecific skin eruption; E66.9 Obesity, unspecified; K21.9 Gastro-esophageal reflux disease without esophagitis; E78.00 Pure hypercholesterolemia, unspecified; M79.7 Fibromyalgia; Z79.899 Other long term (current) drug therapy; Z90.710 Acquired absence of both cervix and uterus; Z95.0 Presence of cardiac pacemaker; Z68.34 Body mass index [BMI] 34.0-34.9, adult

== ENCOUNTER 2017-04-10 13:45 | Inpatient (IN) | payer MEDICARE, MEDICAID ==
[~2017-04-10] VITALS: Ht 160 cm; Wt 82.0 kg
[~2017-04-10 13:45] MED LIST changes: +BRIN1TAB3 PO; +CIPR-249 PO; +CRES10TA32 PO; +DRIS50002 PO; +FERR1TAB8 PO; +OXCA300T PO; +PARO5TAB PO; +PAXI30TA11 PO; +ROSU40TA PO; +TRIA1CR TOP; +vitamin d PO
[2017-04-10 14:52] LABS: MEAN CORPUSCULAR HEMOGLOBIN 29.7 pg (27.0-33.0); MEAN CORPUSCULAR HGB CONC 33.4 g/dl (32.0-36.5); MEAN CORPUSCULAR VOLUME 88.8 fl (80.0-96.0); PLATELET COUNT, AUTOMATED 320 10^3/uL (150-450); RED CELL DISTRIBUTION WIDTH 13.1 % (11.5-14.5); WHITE BLOOD COUNT 8.7 10^3/uL (4.0-10.0)
[2017-04-10 15:12] LABS: METHADONE URINE NEGATIVE (NEGATIVE)
[2017-04-10 15:24] LABS: ALBUMIN 4.2 GM/DL (3.2-5.2); ALBUMIN/GLOBULIN RATIO 1.17 (1.00-1.93); ALKALINE PHOSPHATASE 70 U/L (45-117); ALT/SGPT 34 U/L (12-78); ANION GAP 10 MEQ/L (8-16); AST/SGOT 19 U/L (7-37); BILIRUBIN,DIRECT 0.1 MG/DL (0.0-0.2); BILIRUBIN,TOTAL 0.4 MG/DL (0.2-1.0); BLOOD UREA NITROGEN 7 MG/DL (7-18); CALCIUM LEVEL 9.5 MG/DL (8.5-10.1); CARBON DIOXIDE LEVEL 27 MEQ/L (21-32); CHLORIDE LEVEL 103 MEQ/L (98-107); GLOMERULAR FILTRATION RATE > 60.0 (>51); GLUCOSE, FASTING 97 MG/DL (70-105); POTASSIUM SERUM 3.7 MEQ/L (3.5-5.1); SODIUM LEVEL 140 MEQ/L (136-145); TOTAL PROTEIN 7.8 GM/DL (6.4-8.2)
[2017-04-10] MEDS ORDERED: NICOTINE 21MG/24HR 1 EA TRANSDERMAL TD ONE (16:00)
[2017-04-10] MEDS ORDERED: MAALOX 30 ML SUSP *UDC PO PRN (16:45)
[2017-04-10] MEDS ORDERED: MOM 30ML SUSPENSION UDC PO PRN (16:45)
[2017-04-10] MEDS: OMEPRAZOLE 20 MG CAP PO SCH (20:25)
[2017-04-10] MEDS: QUEtiapine FUMARATE 100 MG TAB PO SCH (20:25)
[2017-04-10] MEDS: TRIAMCINOLONE ACET 0.1% CREAM 80 GM TOP SCH (20:26)
[2017-04-10] MEDS ORDERED: OXcarbazepine 300 MG TAB PO SCH (21:00)
[2017-04-10] MEDS: CALCIUM/VITAMIN D 500 MG TAB PO SCH (21:00)
[2017-04-10] MEDS: OXcarbazepine 300 MG TAB PO SCH (21:21)
[2017-04-11] MEDS: LEVOTHYROXINE 125MCG TABLET (0.125MG) PO SCH (05:44)
[2017-04-11 06:00] VITALS: BP 92/52
[2017-04-11] MEDS: OMEPRAZOLE 20 MG CAP PO SCH ×2 (08:10→20:27)
[2017-04-11] MEDS: PARoxetine 10MG TABLET PO SCH (08:10)
[2017-04-11] MEDS: FERROUS SULFATE 325MG TAB PO SCH (08:10)
[2017-04-11] MEDS: OXcarbazepine 300 MG TAB PO SCH (08:10)
[2017-04-11] MEDS: ROSUVASTATIN 10 MG TAB (CRESTOR) PO SCH (08:10)
[2017-04-11] MEDS: TRIAMCINOLONE ACET 0.1% CREAM 80 GM TOP SCH ×2 (08:11→20:28)
[2017-04-11] MEDS: CALCIUM/VITAMIN D 500 MG TAB PO SCH ×2 (10:29→20:27)
[2017-04-11] MEDS: NICOTINE 21MG/24HR 1 EA TRANSDERMAL TD SCH (10:30)
[2017-04-11] MEDS: lamoTRIgine 25 MG TAB PO SCH ×2 (11:53→20:28)
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
[2017-04-11 18:00] VITALS: BP 121/80
[2017-04-11] MEDS: OLANZapine 5 MG TAB PO SCH (20:28)
[2017-04-11] MEDS: QUEtiapine FUMARATE 100 MG TAB PO SCH (20:28)
[2017-04-11] MEDS: OXcarbazepine 150 MG TAB PO SCH (20:28)
--- NOTE | 2017-04-12 00:18 | HPE ---
DATE OF ADMISSION: 04/10/2017 HISTORY OF PRESENT ILLNESS: Please refer to psychiatric history and evaluation for further details on this admission. This examination and history is intended for medical issues, which may need treatment, followup or consult on this 56-year-old female. ALLERGIES: No known drug allergies. PRIMARY CARE PROVIDER: Dr. Ken. SOCIAL HISTORY: She resides in [place]. She is . She has two children. She smokes about 10 cigarettes per day. She does not drink alcohol. She does not use recreational drugs. PAST MEDICAL HISTORY: 1. Fibromyalgia. 2. Anxiety. 3. Depression. 4. Insomnia. 5. Hypothyroidism. 6. Gastroesophageal reflux disease (GERD). 7. Dyslipidemia. 8. Iron deficient anemia. 9. Vitamin D deficiency. PAST SURGICAL HISTORY: 1. Pacemaker 12/11. 2. Hysterectomy. 3. Left clavicle fracture repair 1979. FAMILY HISTORY: Mother is alive and well. Father is , 34 years old, myocardial infarction ([place]). Siblings: One brother, one sister alive with depression. REVIEW OF SYSTEMS: 11-point review of systems was performed, was unremarkable. Patient had no complaints other than the depression. LABORATORY STUDIES: CBC was normal. CMP was normal. Toxicology screen was negative. TSH was therapeutic at 3.0. EKG on file done 08/28/2015 showed normal sinus rhythm. HOME MEDICATIONS: - calcium/vitamin D 600/400 one by mouth twice a day - ferrous sulfate 325 one by mouth daily - omeprazole 40 mg by mouth twice a day - levothyroxine 125 mcg by mouth daily - Trileptal 300 mg by mouth twice a day - Paxil 30 mg by mouth every morning - Seroquel 300 mg by mouth nightly - Crestor 40 mg by mouth daily - Kenalog cream twice a day to rectal area - vitamin D 50,000 units one by mouth every 2 weeks PHYSICAL EXAMINATION: 56-year-old cooperative female in no acute distress. Height 63 inches, weight 81.8 kg, body mass index (BMI) 31.9. Blood pressure 116/84, pulse 70, respirations 18, temperature 98. Patient is alert and oriented times three. Pupils equal and react to light. Extraocular muscles intact. Cornea and sclerae clear. Conjunctivae were normal. No facial asymmetry. Pharynx, tongue and gums pink and moist. Tongue is midline. Neck is supple without lymphadenopathy. No thyromegaly, no goiter. Carotids 2+ without bruit. Chest clear to auscultation without wheeze or retraction. Heart is regular. Abdomen is benign. Bowel sounds positive. Genitourinary/rectal: Not done. Extremities show equal strength, full range of motion. No cyanosis, clubbing or edema. Peripheral pulses equal and palpable bilaterally. Cranial nerves III-XII grossly intact. IMPRESSION/PLAN: 1. Psychiatric plan per psychiatry. 2. Nicotine dependence. Patch available. 3. Cream to the rectal area twice a day. Followup with primary care on discharge. 4. Hypothyroidism. Continue levothyroxine at 125 mcg daily. Thyroid-stimulating hormone (TSH) is therapeutic. 5. Gastroesophageal reflux disease (GERD). Stable. Continue omeprazole. 6. Hypercholesterolemia. Continue Crestor. 7. History of iron deficiency. Continue ferrous sulfate. 8. Vitamin D deficiency. Continue Drisdol. No acute medical issues.
[2017-04-12 06:24] VITALS: BP 88/54
[2017-04-12] MEDS: LEVOTHYROXINE 125MCG TABLET (0.125MG) PO SCH (06:26)
[2017-04-12] MEDS: OMEPRAZOLE 20 MG CAP PO SCH ×2 (08:41→20:36)
[2017-04-12] MEDS: FERROUS SULFATE 325MG TAB PO SCH (08:41)
[2017-04-12] MEDS: CALCIUM/VITAMIN D 500 MG TAB PO SCH ×2 (08:41→20:36)
[2017-04-12] MEDS: OLANZapine 5 MG TAB PO SCH ×2 (08:41→20:36)
[2017-04-12] MEDS: OXcarbazepine 150 MG TAB PO SCH ×2 (08:41→20:36)
[2017-04-12] MEDS: lamoTRIgine 25 MG TAB PO SCH ×2 (08:41→20:36)
[2017-04-12] MEDS: PARoxetine 10MG TABLET PO SCH (08:41)
[2017-04-12] MEDS: ROSUVASTATIN 10 MG TAB (CRESTOR) PO SCH (08:41)
[2017-04-12] MEDS: TRIAMCINOLONE ACET 0.1% CREAM 80 GM TOP SCH ×2 (08:44→20:36)
[2017-04-12] MEDS: NICOTINE 21MG/24HR 1 EA TRANSDERMAL TD SCH (08:44)
[2017-04-12] MEDS ORDERED: INFLUENZA QUADRIVALENT PF VACCINE 0.5ML SYRINGE (90686) IM ONE (09:00)
[2017-04-12] MEDS: ACETAMINOPHEN TAB 650MG DOSE (2X325MG) PO PRN (09:33)
[2017-04-12 18:00] VITALS: BP 111/73
[2017-04-12] MEDS: QUEtiapine FUMARATE 100 MG TAB PO SCH (20:36)
[2017-04-13] MEDS: LEVOTHYROXINE 125MCG TABLET (0.125MG) PO SCH (06:11)
[2017-04-13 06:23] VITALS: BP 132/66
[2017-04-13] MEDS: lamoTRIgine 25 MG TAB PO SCH ×2 (08:10→20:33)
[2017-04-13] MEDS: CALCIUM/VITAMIN D 500 MG TAB PO SCH ×2 (08:10→20:33)
[2017-04-13] MEDS: FERROUS SULFATE 325MG TAB PO SCH (08:10)
[2017-04-13] MEDS: OLANZapine 5 MG TAB PO SCH ×2 (08:10→20:34)
[2017-04-13] MEDS: PARoxetine 10MG TABLET PO SCH (08:11)
[2017-04-13] MEDS: TRIAMCINOLONE ACET 0.1% CREAM 80 GM TOP SCH ×2 (08:12→20:33)
[2017-04-13] MEDS: ROSUVASTATIN 10 MG TAB (CRESTOR) PO SCH (08:12)
[2017-04-13] MEDS: OMEPRAZOLE 20 MG CAP PO SCH ×2 (08:12→20:33)
[2017-04-13] MEDS: NICOTINE 21MG/24HR 1 EA TRANSDERMAL TD SCH (08:13)
--- NOTE | 2017-04-13 08:24 | MHIPN ---
DATE OF SERVICE: 04/12/2017 HISTORY: 56-year-old female with history of major depression and a remote alcohol dependency admitted for treatment of severe depression, very high anxiety and suicidal thoughts. MEDICATIONS: - Trileptal 300 mg by mouth twice a day - Zyprexa 5 mg by mouth twice a day - Paxil 30 mg by mouth every morning - Lamictal 25 mg by mouth twice a day - Seroquel 300 mg by mouth nightly SUBJECTIVE: "I'm feeling about the same." OBJECTIVE: No major changes from yesterday. Patient reports severe depression and very high anxiety. Patient could sleep more or less 6 hours. There is no evidence of psychotic symptoms. No auditory or visual hallucinations or delusions. Patient is hopeless and does not think she is going to get better. MENTAL STATUS EXAMINATION: Patient is dressed in [facility]. Patient is cooperative. Has poor eye contact. Speech is slow and monotone. Mood is depressed and very anxious. Affect is restricted. No evidence of delusions or hallucinations. Memory, attention and concentration are fair. Patient continues to have suicidal thoughts intermittently. Insight and judgment are fair. ASSESSMENT: 1. Depression. 2. High anxiety. 3. Suicidal ideation. PLAN: 1. Trileptal to 450 mg by mouth twice a day. 2. Zyprexa 5 mg by mouth twice a day. 3. Paxil 30 mg by mouth every morning. 4. Lamictal 25 mg by mouth twice a day. 5. Seroquel 300 mg by mouth nightly.
[2017-04-13] MEDS: OXcarbazepine 150 MG TAB PO SCH ×2 (08:44→20:34)
[2017-04-13] MEDS: ACETAMINOPHEN TAB 650MG DOSE (2X325MG) PO PRN (10:07)
--- NOTE | 2017-04-13 15:48 | MHIPN ---
DATE OF SERVICE: 04/13/2017 HISTORY: 56-year-old female with history of major depression and remote alcohol dependency admitted for treatment of severe depression, very high anxiety and suicidal thoughts. MEDICATIONS: - Trileptal 450 mg by mouth twice a day - Zyprexa 5 mg by mouth twice a day - Paxil 30 mg by mouth every morning - Lamictal 25 mg by mouth twice a day - Seroquel 300 mg by mouth nightly SUBJECTIVE: "I'm not feeling well." OBJECTIVE: Patient continues depressed, anxious, worried, hopeless, thinking that she is not going to get better. Denies side effects from the medication. Is able to sleep approximately 7 hours with the help of medication. There is no evidence of psychotic symptoms. No auditory or visual hallucinations or delusions. MENTAL STATUS EXAMINATION: Patient dressed in [facility]. Patient is cooperative. Has fair eye contact. Speech is slow and monotone. Mood is depressed and anxious. Affect is restricted. There is no evidence of delusions or hallucinations. Memory, attention and concentration are fair. Patient continues to have intermittent suicidal thoughts. Insight and judgment are fair. ASSESSMENT: 1. Depression. 2. High anxiety. 3. Suicidal ideation. PLAN: 1. Continue Trileptal 450 mg by mouth twice a day. 2. Zyprexa 5 mg by mouth twice a day. 3. Paxil 30 mg by mouth every morning. 4. Lamictal 25 mg by mouth twice a day. 5. Seroquel 300 mg by mouth nightly
[2017-04-13 18:09] VITALS: BP 108/67
[2017-04-13] MEDS: QUEtiapine FUMARATE 100 MG TAB PO SCH (20:33)
[2017-04-14 06:00] VITALS: BP 102/52
[2017-04-14] MEDS: LEVOTHYROXINE 125MCG TABLET (0.125MG) PO SCH (06:10)
[2017-04-14] MEDS: TRIAMCINOLONE ACET 0.1% CREAM 80 GM TOP SCH ×2 (08:47→20:44)
[2017-04-14] MEDS: OMEPRAZOLE 20 MG CAP PO SCH ×2 (08:48→20:42)
[2017-04-14] MEDS: ROSUVASTATIN 10 MG TAB (CRESTOR) PO SCH (08:48)
[2017-04-14] MEDS: PARoxetine 10MG TABLET PO SCH (08:48)
[2017-04-14] MEDS: FERROUS SULFATE 325MG TAB PO SCH (08:48)
[2017-04-14] MEDS: CALCIUM/VITAMIN D 500 MG TAB PO SCH ×2 (08:48→20:42)
[2017-04-14] MEDS: lamoTRIgine 25 MG TAB PO SCH ×2 (08:48→20:42)
[2017-04-14] MEDS: OLANZapine 5 MG TAB PO SCH ×2 (08:48→20:42)
[2017-04-14] MEDS: ACETAMINOPHEN TAB 650MG DOSE (2X325MG) PO PRN (08:48)
[2017-04-14] MEDS: OXcarbazepine 150 MG TAB PO SCH ×2 (08:48→20:42)
[2017-04-14] MEDS: NICOTINE 21MG/24HR 1 EA TRANSDERMAL TD SCH (08:49)
--- NOTE | 2017-04-14 15:23 | MHIPN ---
DATE: 04/14/2017 HISTORY: 56-year-old female with history of major depression and a remote history of alcohol dependency now in full remission. Patient was admitted for severe depression, very high anxiety, and suicidal thoughts. MEDICATIONS: - Trileptal 450 mg by mouth twice a day - Zyprexa 5 mg by mouth twice a day - Paxil 30 mg by mouth every morning - Lamictal 25 by mouth twice a day - Seroquel 300 mg by mouth nightly SUBJECTIVE: "I'm feeling about the same." OBJECTIVE: No major changes. Patient continues depressed and highly anxious, worried that she is not going to get better. Patient feels hopeless. Denies side effect from the medication. Is sleeping better. No evidence of psychotic symptoms. No auditory or visual hallucinations or delusions. Patient is compliant with the treatment. MENTAL STATUS EXAMINATION: Patient is dressed in [facility]. Patient is cooperative, has fair eye contact. Speech is slow and monotone. Mood is depressed and anxious. Affect is restricted. No delusions. No hallucinations. Memory, attention, and concentration are fair. Patient is able to contract for safety while in the hospital, although she continues to have intermittent suicidal thoughts. Insight and judgment are fair. ASSESSMENT: 1. Depression. 2. High anxiety. 3. Suicidal ideation. PLAN: 1. Continue Trileptal 450 mg by mouth twice a day. 2. Continue Zyprexa 5 mg by mouth twice a day. 3. Continue Paxil 30 mg by mouth every morning. 4. Continue Lamictal 25 mg by mouth twice a day. 5. Continue Seroquel 300 mg by mouth nightly.
[2017-04-14 18:00] VITALS: BP 118/74
[2017-04-14] MEDS: QUEtiapine FUMARATE 100 MG TAB PO SCH (20:43)
[2017-04-15] MEDS: LEVOTHYROXINE 125MCG TABLET (0.125MG) PO SCH (06:14)
[2017-04-15 06:56] VITALS: BP 104/63
[2017-04-15] MEDS: OXcarbazepine 150 MG TAB PO SCH ×2 (09:15→20:54)
[2017-04-15] MEDS: lamoTRIgine 25 MG TAB PO SCH ×2 (09:16→20:54)
[2017-04-15] MEDS: FERROUS SULFATE 325MG TAB PO SCH (09:16)
[2017-04-15] MEDS: OLANZapine 5 MG TAB PO SCH ×2 (09:17→20:54)
[2017-04-15] MEDS: OMEPRAZOLE 20 MG CAP PO SCH ×2 (09:17→20:54)
[2017-04-15] MEDS: CALCIUM/VITAMIN D 500 MG TAB PO SCH ×2 (09:17→20:54)
[2017-04-15] MEDS: ACETAMINOPHEN TAB 650MG DOSE (2X325MG) PO PRN ×2 (09:18→15:49)
[2017-04-15] MEDS: NICOTINE 21MG/24HR 1 EA TRANSDERMAL TD SCH (09:19)
[2017-04-15] MEDS: PARoxetine 10MG TABLET PO SCH (09:20)
[2017-04-15] MEDS: TRIAMCINOLONE ACET 0.1% CREAM 80 GM TOP SCH ×2 (09:21→20:56)
[2017-04-15] MEDS: ROSUVASTATIN 10 MG TAB (CRESTOR) PO SCH (09:21)
--- NOTE | 2017-04-15 14:48 | MHIPN ---
DATE OF SERVICE: 04/15/2017 HISTORY: 56-year-old female with history of major depression and remote history of alcohol dependency in full remission. Patient was admitted for severe depression, high anxiety and suicidal thoughts. MEDICATIONS: - Trileptal 450 mg by mouth twice a day - Zyprexa 5 mg by mouth twice a day - Paxil 30 mg by mouth every morning - Lamictal 25 mg by mouth twice a day - Seroquel 300 mg by mouth at bedtime SUBJECTIVE: "I maybe feel a little better." OBJECTIVE: Patient is still highly anxious and preoccupied, worried that she will not get better. There is of evidence of side effects from the medication. Patient is sleeping better with the help of Seroquel. No evidence of psychotic symptoms. No auditory or visual hallucinations or delusions. Patient is compliant with the treatment. MENTAL STATUS EXAMINATION: Patient is dressed in [facility]. Patient is cooperative, has fair eye contact. Speech is slow and monotone. Mood is depressed and anxious, but somewhat improved from yesterday. Affect continues restricted. No delusions. No hallucinations. Memory, attention and concentration are fair. Patient is able to contract for safety during the hospitalization, but reports intermittent suicidal thoughts. Insight and judgment are fair. ASSESSMENT: 1. Depression. 2. High anxiety. 3. Suicidal ideation. PLAN: 1. Continue with Trileptal 450 mg by mouth twice a day. 2. Zyprexa 5 mg by mouth twice a day. 3. Paxil 30 mg by mouth every morning. 4. Lamictal 25 mg by mouth twice a day. 5. Seroquel 300 mg by mouth at bedtime.
[2017-04-15 18:00] VITALS: BP 114/77
[2017-04-15] MEDS: QUEtiapine FUMARATE 100 MG TAB PO SCH (20:54)
[2017-04-16] MEDS: LEVOTHYROXINE 125MCG TABLET (0.125MG) PO SCH (05:52)
[2017-04-16 06:38] VITALS: BP 116/58
[2017-04-16] MEDS ORDERED: lamoTRIgine 25 MG TAB PO SCH (09:00)
[2017-04-16] MEDS: OXcarbazepine 150 MG TAB PO SCH (09:02)
[2017-04-16] MEDS: CALCIUM/VITAMIN D 500 MG TAB PO SCH ×2 (09:02→20:53)
[2017-04-16] MEDS: PARoxetine 10MG TABLET PO SCH (09:02)
[2017-04-16] MEDS: OLANZapine 5 MG TAB PO SCH ×2 (09:02→20:55)
[2017-04-16] MEDS: ROSUVASTATIN 10 MG TAB (CRESTOR) PO SCH (09:02)
[2017-04-16] MEDS: FERROUS SULFATE 325MG TAB PO SCH (09:02)
[2017-04-16] MEDS: OMEPRAZOLE 20 MG CAP PO SCH ×2 (09:02→20:54)
[2017-04-16] MEDS: NICOTINE 21MG/24HR 1 EA TRANSDERMAL TD SCH (09:02)
[2017-04-16] MEDS: TRIAMCINOLONE ACET 0.1% CREAM 80 GM TOP SCH ×2 (09:02→20:55)
[2017-04-16] MEDS: lamoTRIgine 25 MG TAB PO SCH ×2 (09:02→20:53)
[2017-04-16] MEDS: ACETAMINOPHEN TAB 650MG DOSE (2X325MG) PO PRN (09:06)
--- NOTE | 2017-04-16 15:49 | MHIPN ---
DATE: 04/16/2017 HISTORY: 56-year-old female with history of major depression and remote history of alcohol dependency in full remission. Patient was admitted for severe depression, anxiety, and suicidal thoughts. MEDICATIONS: - Trileptal 450 mg by mouth twice a day - Zyprexa 5 mg by mouth twice a day - Paxil 30 mg by mouth every morning - Lamictal 25 mg by mouth twice a day - Seroquel 300 mg by mouth nightly SUBJECTIVE: "I would like to go home, but still have suicidal thoughts." OBJECTIVE: Patient continues very anxious, preoccupied, and thinking that she is not going to get better, although she is less anxious. Patient denies side effect from the medication. Patient is sleeping with the help of Seroquel. There is no evidence of hallucinations or delusions. Patient is compliant with the treatment plan. MENTAL STATUS EXAMINATION: Patient is dressed in [facility]. Patient is cooperative, has good eye contact. Her speech is normal in rate, volume, and articulation. Mood is depressed and anxious, but somewhat improved. Affect continues to be restricted. No delusions. No hallucinations. Memory, attention, and concentration are fair. Patient is reporting intermittent suicidal thoughts. Insight and judgment are fair. ASSESSMENT: 1. Depression. 2. Anxiety. 3. Suicidal ideation. PLAN: 1. Decrease Trileptal to 300 mg by mouth twice a day. 2. Increase Lamictal to 25 mg by mouth every morning and 50 mg by mouth nightly. 3. Continue Zyprexa 5 mg by mouth twice a day. 4. Continue Seroquel 300 mg by mouth nightly. 5. Continue Paxil 30 mg by mouth every morning.
[2017-04-16 18:20] VITALS: BP 119/74
[2017-04-16] MEDS: OXcarbazepine 300 MG TAB PO SCH (20:55)
[2017-04-16] MEDS: QUEtiapine FUMARATE 100 MG TAB PO SCH (20:55)
[2017-04-17] MEDS: LEVOTHYROXINE 125MCG TABLET (0.125MG) PO SCH (06:12)
[2017-04-17 06:42] VITALS: BP 118/62
[2017-04-17] MEDS: OXcarbazepine 300 MG TAB PO SCH ×2 (09:06→20:33)
[2017-04-17] MEDS: OMEPRAZOLE 20 MG CAP PO SCH ×2 (09:06→20:33)
[2017-04-17] MEDS: lamoTRIgine 25 MG TAB PO SCH ×2 (09:07→20:33)
[2017-04-17] MEDS: NICOTINE 21MG/24HR 1 EA TRANSDERMAL TD SCH (09:07)
[2017-04-17] MEDS: OLANZapine 5 MG TAB PO SCH ×2 (09:07→20:33)
[2017-04-17] MEDS: PARoxetine 10MG TABLET PO SCH (09:07)
[2017-04-17] MEDS: TRIAMCINOLONE ACET 0.1% CREAM 80 GM TOP SCH ×2 (09:07→20:34)
[2017-04-17] MEDS: FERROUS SULFATE 325MG TAB PO SCH (09:07)
[2017-04-17] MEDS: ROSUVASTATIN 10 MG TAB (CRESTOR) PO SCH (09:07)
[2017-04-17] MEDS: CALCIUM/VITAMIN D 500 MG TAB PO SCH ×2 (09:07→20:33)
[2017-04-17] MEDS: ACETAMINOPHEN TAB 650MG DOSE (2X325MG) PO PRN (09:45)
[2017-04-17 18:00] VITALS: BP 113/63
[2017-04-17] MEDS: QUEtiapine FUMARATE 100 MG TAB PO SCH (20:33)
[2017-04-18] MEDS: LEVOTHYROXINE 125MCG TABLET (0.125MG) PO SCH (06:11)
[2017-04-18 06:29] VITALS: BP 123/65
[2017-04-18] MEDS: TRIAMCINOLONE ACET 0.1% CREAM 80 GM TOP SCH ×2 (08:12→20:58)
[2017-04-18] MEDS: PARoxetine 10MG TABLET PO SCH (08:13)
[2017-04-18] MEDS: OLANZapine 5 MG TAB PO SCH ×2 (08:13→20:57)
[2017-04-18] MEDS: CALCIUM/VITAMIN D 500 MG TAB PO SCH ×2 (08:13→20:57)
[2017-04-18] MEDS: OXcarbazepine 300 MG TAB PO SCH ×2 (08:13→20:57)
[2017-04-18] MEDS: FERROUS SULFATE 325MG TAB PO SCH (08:13)
[2017-04-18] MEDS: OMEPRAZOLE 20 MG CAP PO SCH ×2 (08:13→20:57)
[2017-04-18] MEDS: lamoTRIgine 25 MG TAB PO SCH ×2 (08:13→20:57)
[2017-04-18] MEDS: NICOTINE 21MG/24HR 1 EA TRANSDERMAL TD SCH (08:13)
[2017-04-18] MEDS: ROSUVASTATIN 10 MG TAB (CRESTOR) PO SCH (08:13)
[2017-04-18] MEDS: ACETAMINOPHEN TAB 650MG DOSE (2X325MG) PO PRN (10:18)
[2017-04-18] MEDS: CEPACOL LOZENGE PO PRN ×3 (12:33→20:58)
[2017-04-18 18:00] VITALS: BP 117/64
[2017-04-18] MEDS: QUEtiapine FUMARATE 100 MG TAB PO SCH (20:57)
[2017-04-19] MEDS: LEVOTHYROXINE 125MCG TABLET (0.125MG) PO SCH (06:31)
[2017-04-19 06:43] VITALS: BP 106/66
[2017-04-19] MEDS: NICOTINE 21MG/24HR 1 EA TRANSDERMAL TD SCH (08:50)
[2017-04-19] MEDS: CALCIUM/VITAMIN D 500 MG TAB PO SCH ×2 (08:50→20:37)
[2017-04-19] MEDS: CEPACOL LOZENGE PO PRN ×2 (08:50→20:37)
[2017-04-19] MEDS: TRIAMCINOLONE ACET 0.1% CREAM 80 GM TOP SCH ×2 (08:51→20:36)
[2017-04-19] MEDS: FERROUS SULFATE 325MG TAB PO SCH (08:51)
[2017-04-19] MEDS: OLANZapine 5 MG TAB PO SCH ×2 (08:51→20:36)
[2017-04-19] MEDS: lamoTRIgine 25 MG TAB PO SCH ×2 (08:51→20:37)
[2017-04-19] MEDS: OMEPRAZOLE 20 MG CAP PO SCH ×2 (08:51→20:36)
[2017-04-19] MEDS: OXcarbazepine 300 MG TAB PO SCH (08:51)
[2017-04-19] MEDS: ROSUVASTATIN 10 MG TAB (CRESTOR) PO SCH (08:51)
[2017-04-19] MEDS: PARoxetine 10MG TABLET PO SCH (08:52)
--- NOTE | 2017-04-19 17:02 | IPN ---
DATE: 04/19/2017 HISTORY: 56-year-old female with history of major depression and remote history of alcohol dependency in full remission. Patient was admitted for severe depression, anxiety, and suicidal thoughts. MEDICATIONS: - Trileptal 450 mg by mouth twice a day - Zyprexa 5 mg by mouth twice a day - Paxil 30 mg by mouth every morning - Lamictal 25 mg by mouth twice a day - Seroquel 300 mg by mouth nightly SUBJECTIVE: "I am feeling better." OBJECTIVE: Patient is improving, is less depressed and anxious, although she has a tendency to worry. The patient denies side effects from the medications. The patient is sleeping with the help of Seroquel. The patient does not have paranoid delusions. No auditory or visual hallucinations. She is motivated for treatment. MENTAL STATUS EXAMINATION: Patient is dressed in [facility]. Patient is calm and cooperative, has good eye contact. Mood is depressed but significantly improved from admission. Affect is congruent with mood. No delusions. No hallucinations. Memory, attention, and concentration are fair. Patient is denying suicidal or homicidal ideation. Insight and judgment has improved. ASSESSMENT: 1. Depression. 2. Anxiety. 3. Suicidal ideation. PLAN: 1. Decrease Trileptal to 150 mg by mouth twice a day. 2. Continue Lamictal to 25 mg by mouth every morning and 50 mg by mouth nightly. 3. Continue Zyprexa 5 mg by mouth twice a day. 4. Continue Seroquel 300 mg by mouth nightly. 5. Continue Paxil 30 mg by mouth every morning.
[2017-04-19 18:00] VITALS: BP 122/76
[2017-04-19] MEDS: QUEtiapine FUMARATE 100 MG TAB PO SCH (20:37)
[2017-04-19] MEDS: OXcarbazepine 150 MG TAB PO SCH (20:37)
[2017-04-20] MEDS: LEVOTHYROXINE 125MCG TABLET (0.125MG) PO SCH (05:45)
[2017-04-20 06:53] VITALS: BP 105/61
[2017-04-20] MEDS: NICOTINE 21MG/24HR 1 EA TRANSDERMAL TD SCH (08:47)
[2017-04-20] MEDS: OMEPRAZOLE 20 MG CAP PO SCH (08:47)
[2017-04-20] MEDS: ROSUVASTATIN 10 MG TAB (CRESTOR) PO SCH (08:47)
[2017-04-20] MEDS: TRIAMCINOLONE ACET 0.1% CREAM 80 GM TOP SCH (08:47)
[2017-04-20] MEDS: lamoTRIgine 25 MG TAB PO SCH (08:48)
[2017-04-20] MEDS: FERROUS SULFATE 325MG TAB PO SCH (08:48)
[2017-04-20] MEDS: PARoxetine 10MG TABLET PO SCH (08:48)
[2017-04-20] MEDS: OXcarbazepine 150 MG TAB PO SCH (08:48)
[2017-04-20] MEDS: OLANZapine 5 MG TAB PO SCH (08:48)
[2017-04-20] MEDS: CALCIUM/VITAMIN D 500 MG TAB PO SCH (08:48)
[2017-04-20] MEDS ORDERED: VITAMIN D 50,000 UNITS CAPSULE (ERGOCALCIFEROL 1.25MG) PO SCH (09:00)
[2017-04-20] MEDS ORDERED: OLAN5TAB PO (09:50)
[2017-04-20] MEDS ORDERED: OXCA150T PO (09:50)
[2017-04-20] MEDS ORDERED: LAMI25TA PO (09:50)
[2017-04-20] MEDS ORDERED: OLANZapine 5 MG TAB PO ONE (12:00)
--- NOTE | 2017-04-20 16:07 | MHDS ---
DATE OF ADMISSION: 04/10/2017 DATE OF DISCHARGE: 04/20/2017 LEGAL STATUS AT ADMISSION: 9.39 legal status. HISTORY OF PRESENT ILLNESS: A 56-year-old female with history of major depression and remote alcohol dependency in full remission, admitted to our unit on a 9.39 legal status. According to the record, the patient came to the emergency department (ED) and reported feeling very depressed, hopeless, and having suicidal thoughts. She also stated that her appetite is very poor with low energy and only can sleep with the help of Seroquel. The patient was recently discharged from our unit but she did not continue to improve in the outpatient setting. She made the statements of, "I went home and started feeling more depressed." The patient was very anxious and worried, ruminating that her psychiatric problems are not going to get better. She is questioning if the medications are helpful. She has been going through several changes of medication for the last several weeks. During the interview, there is no evidence of psychotic symptoms. No auditory or visual hallucinations or delusions. The patient could not contract for safety. LABORATORY DATA AT ADMISSION: Her CBC was unremarkable. CMP within normal limits. TSH within normal limits. Urine drug screen was negative. Blood alcohol level was negative. HOSPITAL COURSE: After the first interview, she was started on Lamictal 25 mg by mouth twice a day, Trileptal 600 mg by mouth twice a day, Paxil 30 mg by mouth every morning, Zyprexa 5 mg by mouth twice a day, and Seroquel 300 mg by mouth at bedtime. The plan was to taper Trileptal slowly down and increase Lamictal to a therapeutic level. After three days on the current medication, the patient started to feel better. In my opinion, Zyprexa was helpful at least temporarily to stabilize her mood and anxiety. Her mood improved slowly but steadily throughout the hospitalization. The patient was motivated for treatment and going to all psychotherapeutic activities. The patient had no side effects from the current medication. At the moment of discharge, the patient is in a stable condition with no auditory or visual hallucinations, delusions, suicidal or homicidal ideation. The patient is motivated to continue her treatment as outpatient. Therefore, she was discharged on 04/20/2017 after a meeting with her sister and she was very stable. MEDICATIONS AT DISCHARGE: - Lamictal 50 mg by mouth twice a day. - Zyprexa 5 mg by mouth twice a day - Trileptal 150 mg by mouth twice a day times five days and then discontinue - Paxil 30 mg by mouth every morning - Seroquel 300 mg by mouth at bedtime MENTAL STATUS EXAMINATION AT DISCHARGE: The patient is dressed in [facility]. The patient is calm and cooperative. Speech is clear, coherent with normal rate and is spontaneous. The patient has good eye contact. Mood is slightly anxious and depressed but significantly improved from admission. Affect is appropriate and congruent with mood. The patient is oriented to time, place, person and situation, maintains attention and concentration correctly. Instant recall, recent and remote memory are intact. Thought processes are coherent, logical and goal-directed. The patient does not have auditory or visual hallucinations. The patient does not have paranoid, persecutory, somatic, grandiose, or adventist delusions. The patient is denying suicidal or homicidal ideation. Insight and judgment are fair. DISCHARGE DIAGNOSES: AXIS I: Major depressive disorder. Generalized anxiety disorder. Attention deficit disorder (ADD) by history. Alcohol dependency in complete recovery. AXIS II: Deferred. AXIS III: Fibromyalgia. Hypothyroidism. Gastroesophageal reflux disease (GERD). Hypercholesterolemia. History of bradycardia and pacemaker insertion. CONDITION AT DISCHARGE: Stable. No suicidal or homicidal ideation. No auditory or visual hallucinations or delusions. INSTRUCTIONS TO THE PATIENT: The patient is to continue taking her medications as prescribed and followup appointments. She is advised to maintain absolute sobriety from drugs and alcohol. The patient has scheduled appointment for medication management, individual psychotherapy, and primary care physician.
[2017-04-20] MEDS ORDERED: lamoTRIgine 25 MG TAB PO SCH (21:00)
== END 2017-04-20 11:50 | disposition home or self-care (01) | DRG 881 ==
LOC: M ED 13:45 → M ED INP 16:35 → M PSY 17:26
PROVIDERS: ADMIT Psychiatry & Neurology Psychiatry; ATTEND Psychiatry & Neurology Psychiatry
DX: F32.9 Major depressive disorder, single episode, unspecified (principal); F41.1 Generalized anxiety disorder; M79.7 Fibromyalgia; E03.9 Hypothyroidism, unspecified; K21.9 Gastro-esophageal reflux disease without esophagitis; E78.00 Pure hypercholesterolemia, unspecified; F98.8 Other specified behavioral and emotional disorders with onset usually occurring in childhood and adolescence; F10.21 Alcohol dependence, in remission; F17.210 Nicotine dependence, cigarettes, uncomplicated; E78.5 Hyperlipidemia, unspecified; Z95.0 Presence of cardiac pacemaker; Z90.710 Acquired absence of both cervix and uterus; Z79.899 Other long term (current) drug therapy

== ENCOUNTER 2017-04-24 12:57 | Inpatient (IN) | payer MEDICARE, MEDICAID ==
[~2017-04-24] VITALS: Ht 160 cm; Wt 84.0 kg
[~2017-04-24 12:57] MED LIST changes: +LAMI25TA PO; +OLAN5TAB PO; +OXCA150T PO
[2017-04-24 13:52] LABS: MEAN CORPUSCULAR HEMOGLOBIN 29.1 pg (27.0-33.0); MEAN CORPUSCULAR HGB CONC 32.7 g/dl (32.0-36.5); MEAN CORPUSCULAR VOLUME 88.9 fl (80.0-96.0); PLATELET COUNT, AUTOMATED 344 10^3/uL (150-450); RED CELL DISTRIBUTION WIDTH 13.2 % (11.5-14.5); WHITE BLOOD COUNT 8.8 10^3/uL (4.0-10.0)
[2017-04-24 14:11] LABS: CONTROL LINE HCG INT CTR LINE PRESENT
[2017-04-24 14:14] LABS: METHADONE URINE NEGATIVE (NEGATIVE)
[2017-04-24 14:23] LABS: ALBUMIN/GLOBULIN RATIO 1.14 (1.00-1.93); ALKALINE PHOSPHATASE 65 U/L (45-117); ALT/SGPT 39 U/L (12-78); ANION GAP 10 MEQ/L (8-16); AST/SGOT 19 U/L (7-37); BILIRUBIN,DIRECT < 0.1 MG/DL (0.0-0.2); BILIRUBIN,TOTAL 0.3 MG/DL (0.2-1.0); BLOOD UREA NITROGEN 15 MG/DL (7-18); CALCIUM LEVEL 9.6 MG/DL (8.5-10.1); CARBON DIOXIDE LEVEL 23 MEQ/L (21-32); CHLORIDE LEVEL 106 MEQ/L (98-107); CREATININE FOR GFR 0.72 MG/DL (0.55-1.02); GLOMERULAR FILTRATION RATE > 60.0 (>51); GLUCOSE, FASTING 94 MG/DL (70-105); SODIUM LEVEL 139 MEQ/L (136-145); TOTAL PROTEIN 7.5 GM/DL (6.4-8.2)
[2017-04-24] MEDS ORDERED: NICOTINE 21MG/24HR 1 EA TRANSDERMAL TD ONE (15:00)
[2017-04-24] MEDS ORDERED: PARO30TA PO (16:09)
[2017-04-24] MEDS ORDERED: OXCA150T PO (16:09)
[2017-04-24] MEDS ORDERED: OLAN5TAB PO (16:09)
[2017-04-24] MEDS ORDERED: LAMI25TA PO (16:09)
[2017-04-24 16:43] VITALS: BP 120/75
[2017-04-24] MEDS ORDERED: ACETAMINOPHEN TAB 650MG DOSE (2X325MG) PO PRN (19:00)
[2017-04-24] MEDS ORDERED: MAALOX 30 ML SUSP *UDC PO PRN (19:00)
[2017-04-24] MEDS ORDERED: MOM 30ML SUSPENSION UDC PO PRN (19:00)
[2017-04-24] MEDS: OLANZapine 5 MG TAB PO SCH (20:55)
[2017-04-24] MEDS: lamoTRIgine 25 MG TAB PO SCH (20:55)
[2017-04-24] MEDS: OXcarbazepine 150 MG TAB PO SCH (20:55)
[2017-04-24] MEDS: OMEPRAZOLE 20 MG CAP PO SCH (20:55)
[2017-04-24] MEDS: QUEtiapine FUMARATE 100 MG TAB PO SCH (20:56)
[2017-04-24] MEDS: TRIAMCINOLONE ACET 0.1% CREAM 15 GM TOP SCH (21:17)
[2017-04-25 06:42] VITALS: BP 110/69
[2017-04-25] MEDS: NICOTINE 21MG/24HR 1 EA TRANSDERMAL TD SCH (08:41)
[2017-04-25] MEDS: lamoTRIgine 25 MG TAB PO SCH ×2 (08:41→20:16)
[2017-04-25] MEDS: OMEPRAZOLE 20 MG CAP PO SCH ×2 (08:41→20:16)
[2017-04-25] MEDS: TRIAMCINOLONE ACET 0.1% CREAM 15 GM TOP SCH ×2 (08:41→20:16)
[2017-04-25] MEDS: FERROUS SULFATE 325MG TAB PO SCH (08:41)
[2017-04-25] MEDS: PARoxetine 10MG TABLET PO SCH (08:42)
[2017-04-25] MEDS: ROSUVASTATIN 10 MG TAB (CRESTOR) PO SCH (08:42)
[2017-04-25] MEDS: OXcarbazepine 150 MG TAB PO SCH (08:42)
[2017-04-25] MEDS ORDERED: LEVOTHYROXINE 125MCG TABLET (0.125MG) PO SCH (09:00)
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
[2017-04-25 18:00] VITALS: BP 117/64
[2017-04-25] MEDS: OLANZapine 5 MG TAB PO SCH (20:16)
[2017-04-25] MEDS: QUEtiapine FUMARATE 100 MG TAB PO SCH (20:16)
--- NOTE | 2017-04-26 03:27 | HPE ---
DATE OF ADMISSION: 04/24/2017 HISTORY OF PRESENT ILLNESS: Please refer to psychiatric history and evaluation for further details on this admission. This examination and history is intended for medical issues, which may need treatment, followup or consult on this 56-year-old female. ALLERGIES: No known allergies. PRIMARY CARE PROVIDER: Dr. Ken. SOCIAL HISTORY: She resides in [place]. She is . She has two children. She smokes approximately 10 cigarettes per day. She does not drink alcohol. She does not use recreational drugs. PAST MEDICAL HISTORY: 1. Fibromyalgia. 2. Anxiety. 3. Depression. 4. Insomnia. 5. Hypothyroidism. 6. Gastroesophageal reflux disease (GERD). 7. Dyslipidemia. 8. Iron deficient anemia. 9. Vitamin D deficiency. PAST SURGICAL HISTORY: 1. Pacemaker November of 2013. 2. Hysterectomy. 3. Left clavicle fracture repair 1979. FAMILY HISTORY: Mother is alive and well. Father is , 34 years old, myocardial infarction. Siblings: One brother, one sister alive with depression. LABORATORY STUDIES: CBC was normal. CMP normal. TSH was 2.080. Toxicology screen was negative. HOME MEDICATIONS: - calcium with vitamin D 600 plus 400 one by mouth daily - ferrous sulfate 325 mg by mouth daily - Lamictal 50 mg by mouth twice a day - levothyroxine 125 mcg by mouth daily - olanzapine 5 mg by mouth twice a day - omeprazole 40 mg by mouth twice a day - oxcarbazepine 150 mg by mouth twice a day - fluoxetine 30 mg by mouth daily - Seroquel 300 mg by mouth nightly - rosuvastatin 40 mg by mouth daily - triamcinolone 0.1% cream topically twice a day - vitamin D 50,000 units by mouth every 2 weeks REVIEW OF SYSTEMS: 10-system review was done. Other than occasional rectal itching for which she uses triamcinolone, she had no complaints. OBJECTIVE: 56-year-old cooperative female in no acute distress. Height 63 inches, weight 83 kg, body mass index (BMI) 32.4. Blood pressure 120/70, pulse 70, respirations 16, temperature 98. Patient is alert and oriented times three. Pupils equal and react to light. Extraocular muscles intact. Cornea and sclerae clear. Conjunctivae were normal. No facial asymmetry. Pharynx, tongue and gums pink and moist. Tongue is midline. Neck is supple without lymphadenopathy. No thyromegaly, no goiter. Carotids 2+ without bruit. Chest clear to auscultation without wheeze or retraction. Heart is regular. Abdomen is benign. Bowel sounds positive. Genitourinary/rectal: Not done. Extremities show equal strength, full range of motion. No cyanosis, clubbing or edema. Peripheral pulses equal and palpable bilaterally. Skin is warm and dry. IMPRESSION/PLAN: 1. Psychiatric plan per psychiatry. 2. Nicotine dependence. Patch available. 3. Cream to rectal area twice a day. Followup with primary care on discharge. 4. Hypothyroidism. Thyroid-stimulating hormone (TSH) therapeutic. Continue levothyroxine 125 mcg by mouth daily. 5. Gastroesophageal reflux disease (GERD). Stable. Continue omeprazole. 6. Hypercholesterolemia. Continue Crestor. 7. History of iron deficiency. Continue iron. 8. Vitamin D deficiency. Continue Drisdol. No new acute medical issues.
[2017-04-26] MEDS: LEVOTHYROXINE 125MCG TABLET (0.125MG) PO SCH (05:28)
[2017-04-26 06:00] VITALS: BP 106/61
[2017-04-26 08:27] VITALS: BP 106/61
[2017-04-26] MEDS: ROSUVASTATIN 10 MG TAB (CRESTOR) PO SCH (08:42)
[2017-04-26] MEDS: OMEPRAZOLE 20 MG CAP PO SCH ×2 (08:42→20:42)
[2017-04-26] MEDS: lamoTRIgine 25 MG TAB PO SCH ×2 (08:42→20:42)
[2017-04-26] MEDS: FERROUS SULFATE 325MG TAB PO SCH (08:42)
[2017-04-26] MEDS: PARoxetine 10MG TABLET PO SCH (08:42)
[2017-04-26] MEDS: NICOTINE 21MG/24HR 1 EA TRANSDERMAL TD SCH (08:43)
[2017-04-26] MEDS: TRIAMCINOLONE ACET 0.1% CREAM 15 GM TOP SCH ×2 (08:43→20:42)
--- NOTE | 2017-04-26 15:38 | MHIPN ---
DATE: 04/26/2017 HISTORY: A 56-year-old female admitted for suicidal ideation and major depression. MEDICATIONS: - Lamictal 75 mg by mouth every morning and 50 mg by mouth at bedtime - Paxil 30 mg by mouth every morning - olanzapine 10 mg by mouth at bedtime - Seroquel 300 mg by mouth at bedtime SUBJECTIVE: "I have been crying a lot." OBJECTIVE: The patient reports depression but denies suicidal thoughts during the interview. The patient is somewhat labile and tearful, talking about her situation at home. There is no evidence of psychotic symptoms. No auditory or visual hallucinations or delusions. We discussed the treatment plan. MENTAL STATUS EXAMINATION: [facility]. The patient is calm and cooperative. Speech is soft and monotone. Mood is depressed and anxious. Affect is labile. No delusions. No hallucinations. Memory, attention and concentration are fair. The patient is able to contract for safety during the interview. Insight and judgment is fair. ASSESSMENT: 1. Depression. 2. High anxiety. 3. Suicidal ideation. PLAN: 1. Continue with Lamictal 75 mg by mouth every morning and 50 mg by mouth at bedtime. 2. Continue Paxil 30 mg by mouth every morning. 3. Continue Seroquel 300 mg by mouth at bedtime. 4. Continue medication management, individual and group therapy.
[2017-04-26 18:09] VITALS: BP 121/73
[2017-04-26] MEDS: QUEtiapine FUMARATE 100 MG TAB PO SCH (20:42)
[2017-04-26] MEDS: OLANZapine 5 MG TAB PO SCH (20:42)
[2017-04-27] MEDS: LEVOTHYROXINE 125MCG TABLET (0.125MG) PO SCH (05:48)
[2017-04-27 06:50] VITALS: BP 126/78
[2017-04-27] MEDS: ROSUVASTATIN 10 MG TAB (CRESTOR) PO SCH (08:47)
[2017-04-27] MEDS: NICOTINE 21MG/24HR 1 EA TRANSDERMAL TD SCH (08:47)
[2017-04-27] MEDS: OMEPRAZOLE 20 MG CAP PO SCH (08:47)
[2017-04-27] MEDS: lamoTRIgine 25 MG TAB PO SCH (08:48)
[2017-04-27] MEDS: PARoxetine 10MG TABLET PO SCH (08:48)
[2017-04-27] MEDS: TRIAMCINOLONE ACET 0.1% CREAM 15 GM TOP SCH (08:49)
[2017-04-27] MEDS: FERROUS SULFATE 325MG TAB PO SCH (08:49)
[2017-04-27] MEDS ORDERED: LAMI25TA PO ×2 (08:58)
[2017-04-27] MEDS ORDERED: OLAN5TAB PO (08:58)
[2017-04-27] MEDS ORDERED: VITAMIN D 50,000 UNITS CAPSULE (ERGOCALCIFEROL 1.25MG) PO SCH (09:00)
--- NOTE | 2017-04-27 15:22 | MHDS ---
DATE OF ADMISSION: 04/24/2017 DATE OF DISCHARGE: 04/27/2017 LEGAL STATUS AT ADMISSION: 9.39 legal status. HISTORY OF PRESENT ILLNESS: A 56-year-old female with history of major depression, admitted to our unit on a 9.39 legal status. According to the record, the patient came to the emergency department to be evaluated for depression and suicidal thoughts. The patient was recently discharged from our unit. The patient reports hopelessness, helplessness, insomnia, very high anxiety, worry, preoccupation, and intermittent suicide ideation. The patient is unable to contract for safety. There was no evidence of psychotic symptoms. No auditory or visual hallucinations or delusions. LABORATORY DATA AT ADMISSION: Her CBC was within normal limits. CMP unremarkable. TSH within normal limits. test is negative. Blood alcohol level is negative. Urine drug screen is negative. HOSPITAL COURSE: The patient was restarted on previous to admission medication but Lamictal was increased to 75 mg by mouth every morning and 50 mg by mouth at bedtime. After observation of the patient, the patient is now doing significantly better than she was when she first admitted. The patient is denying side effect from medication. The patient is denying suicidal or homicidal ideation. There is no evidence of psychotic symptoms. No auditory or visual hallucinations or delusions. We discussed the treatment plan with the patient and the fact that she will have to wait until the dosage of Lamictal is at therapeutic level. She is able to contract for safety at this time. Therefore, the patient can be managed in outpatient basis. We discussed this fact too and it is decided that the patient is discharged on 04/27/2017. MEDICATIONS AT DISCHARGE: - Lamictal 75 mg by mouth every morning and 50 mg by mouth at bedtime - Paxil 30 mg by mouth every morning - olanzapine 10 mg by mouth at bedtime - Seroquel 300 mg by mouth at bedtime MENTAL STATUS EXAMINATION AT DISCHARGE: The patient is dressed in [facility]. The patient is cooperative during examination. Speech is clear, coherent with normal rate and is spontaneous. The patient has good eye contact. Mood is slightly anxious and she is depressed but improved from admission. Affect is appropriate and congruent with mood. The patient is oriented to time, place, person and situation, maintains attention and concentration correctly. Instant recall, recent and remote memory are intact. Thought processes are coherent, logical, and goal-directed. The patient does not have auditory or visual hallucinations. The patient does not have paranoid, persecutory, somatic, grandiose or yazidism delusions. The patient is denying suicidal or homicidal ideation. Insight and judgment are fair. DISCHARGE DIAGNOSES: AXIS I: Major depressive disorder. Generalized anxiety disorder. Attention deficit disorder (ADD) by history. Alcohol dependency in complete recovery. AXIS II: Deferred. AXIS III: Fibromyalgia. Hypothyroidism. Gastroesophageal reflux disease (GERD). Hypercholesterolemia. History of bradycardia with pacemaker insertion. CONDITION AT DISCHARGE: Stable. No auditory or visual hallucinations. No delusions. No suicidal or homicidal ideation. INSTRUCTIONS TO THE PATIENT: The patient is to continue taking her medications as prescribed and followup appointments. She is advised to maintain absolute sobriety from drugs and alcohol. The patient has scheduled appointment for medication management, individual psychotherapy, and primary care physician.
== END 2017-04-27 13:30 | disposition home or self-care (01) | DRG 881 ==
LOC: M ED 12:57 → M ED INP 15:37 → M PSY 16:37
PROVIDERS: ADMIT Psychiatry & Neurology Psychiatry; ATTEND Psychiatry & Neurology Psychiatry
DX: F32.9 Major depressive disorder, single episode, unspecified (principal); F41.1 Generalized anxiety disorder; F10.21 Alcohol dependence, in remission; M79.7 Fibromyalgia; E03.9 Hypothyroidism, unspecified; E78.5 Hyperlipidemia, unspecified; E55.9 Vitamin D deficiency, unspecified; K21.9 Gastro-esophageal reflux disease without esophagitis; E78.00 Pure hypercholesterolemia, unspecified; Z95.0 Presence of cardiac pacemaker; F17.210 Nicotine dependence, cigarettes, uncomplicated; Z90.710 Acquired absence of both cervix and uterus

== ENCOUNTER → 2017-04-29 | Outpatient (REF) | payer MEDICARE, MEDICAID ==
[~2017-04-29] MED LIST changes: +PARO30TA PO
[2017-04-29 14:04] LABS: BASO # 0.1 10^3/uL (0.0-0.2); BASO % 0.6 % (0.0-1.0); EOS # 0.1 10^3/uL (0.0-0.50); EOS % 1.3 % (0.0-3.0); IMMATURE GRANULOCYTE % 0.8 % (0-0); LYMPH # 1.9 10^3/uL (1.5-4.5); LYMPH % 22.5 % (24.0-44.0); MEAN CORPUSCULAR HEMOGLOBIN 29.2 pg (27.0-33.0); MEAN CORPUSCULAR HGB CONC 32.2 g/dl (32.0-36.5); MEAN CORPUSCULAR VOLUME 90.7 fl (80.0-96.0); MONO # 0.6 10^3/uL (0.0-0.8); MONO % 6.9 % (0.0-5.0); NEUTROPHILS # 5.8 10^3/uL (1.8-7.7); NEUTROPHILS % 67.9 % (36.0-66.0); PLATELET COUNT, AUTOMATED 310 10^3/uL (150-450); RED CELL DISTRIBUTION WIDTH 13.6 % (11.5-14.5); WHITE BLOOD COUNT 8.6 10^3/uL (4.0-10.0)
[2017-04-29 14:47] LABS: PERCENT SATURATION 17.6 % (13.2-45.0)
== END ==
LOC: M SFHCPLAZ 10:59
PROVIDERS: ATTEND Family Medicine
DX: R73.01 Impaired fasting glucose (principal); D50.9 Iron deficiency anemia, unspecified; M81.0 Age-related osteoporosis without current pathological fracture; F32.9 Major depressive disorder, single episode, unspecified; B35.9 Dermatophytosis, unspecified; I47.1 Supraventricular tachycardia; E66.09 Other obesity due to excess calories; N39.41 Urge incontinence; G47.33 Obstructive sleep apnea (adult) (pediatric); E78.2 Mixed hyperlipidemia; E03.9 Hypothyroidism, unspecified; F90.0 Attention-deficit hyperactivity disorder, predominantly inattentive type; I49.5 Sick sinus syndrome; Z12.39 Encounter for other screening for malignant neoplasm of breast; J32.9 Chronic sinusitis, unspecified; K21.9 Gastro-esophageal reflux disease without esophagitis; E53.8 Deficiency of other specified B group vitamins; E55.9 Vitamin D deficiency, unspecified; Z12.4 Encounter for screening for malignant neoplasm of cervix; Z12.11 Encounter for screening for malignant neoplasm of colon
CPT/HCPCS: 36415; 82728; 83036; 83525; 83550; 85025; 96372; G0463; J0897

== ENCOUNTER 2017-06-16 14:40 | Inpatient (IN) | payer MEDICARE, MEDICAID, OTHER ==
[2017-06-16 17:10] LABS: HEMATOCRIT 41.8 % (36.0-47.0); HEMOGLOBIN 13.6 g/dl (12.0-16.0); MEAN CORPUSCULAR HEMOGLOBIN 28.7 pg (27.0-33.0); MEAN CORPUSCULAR HGB CONC 32.5 g/dl (32.0-36.5); MEAN CORPUSCULAR VOLUME 88.2 fl (80.0-96.0); PLATELET COUNT, AUTOMATED 357 10^3/uL (150-450); RED BLOOD COUNT 4.74 10^6/uL (4.00-5.40); RED CELL DISTRIBUTION WIDTH 13.8 % (11.5-14.5); WHITE BLOOD COUNT 9.5 10^3/uL (4.0-10.0)
[2017-06-16 17:37] LABS: AMPHETAMINES LEVEL URINE NEGATIVE (NEGATIVE); BARBITURATES URINE NEGATIVE (NEGATIVE); BENZODIAZEPINES URINE NEGATIVE (NEGATIVE); CANNABINOIDS URINE NEGATIVE (NEGATIVE); COCAINE METABOLITE URINE NEGATIVE (NEGATIVE); METHADONE URINE NEGATIVE (NEGATIVE); OPIATES URINE NEGATIVE (NEGATIVE); PHENCYCLIDINE URINE NEGATIVE (NEGATIVE)
[2017-06-16 17:47] LABS: ALBUMIN 4.5 GM/DL (3.2-5.2); ALBUMIN/GLOBULIN RATIO 1.22 (1.00-1.93); ALKALINE PHOSPHATASE 70 U/L (45-117); ALT/SGPT 31 U/L (12-78); ANION GAP 9 MEQ/L (8-16); AST/SGOT 19 U/L (7-37); BILIRUBIN,DIRECT 0.1 MG/DL (0.0-0.2); BILIRUBIN,TOTAL 0.4 MG/DL (0.2-1.0); BLOOD UREA NITROGEN 12 MG/DL (7-18); CALCIUM LEVEL 9.6 MG/DL (8.5-10.1); CARBON DIOXIDE LEVEL 27 MEQ/L (21-32); CHLORIDE LEVEL 103 MEQ/L (98-107); CREATININE FOR GFR 0.73 MG/DL (0.55-1.02); ETHYL ALCOHOL (ETHANOL) < 0.003 % (0.000-0.010); GLOMERULAR FILTRATION RATE > 60.0 (>51); GLUCOSE, FASTING 78 MG/DL (70-105); POTASSIUM SERUM 4.2 MEQ/L (3.5-5.1); SALICYLATE LEVEL < 1.7 MG/DL (5.0-30.0); SODIUM LEVEL 139 MEQ/L (136-145); TOTAL PROTEIN 8.2 GM/DL (6.4-8.2)
[2017-06-16 17:48] LABS: ACETAMINOPHEN LEVEL < 2.0 UG/ML (10.0-30.0)
[2017-06-16] MEDS ORDERED: traZODone 50 MG TAB PO (18:00)
[2017-06-16] MEDS ORDERED: MAALOX 30 ML SUSP *UDC PO (18:00)
[2017-06-16] MEDS: QUEtiapine FUMARATE 100 MG TAB PO (21:23)
[2017-06-16] MEDS: OMEPRAZOLE 20 MG CAP PO (21:24)
[2017-06-16] MEDS: GABAPENTIN 400 MG CAP PO (21:24)
[2017-06-17] MEDS: LEVOTHYROXINE 125MCG TABLET (0.125MG) PO (06:16)
[2017-06-17] MEDS: buPROPion **XL** TABLET 150MG (WELLBUTRIN XL) PO (09:03)
[2017-06-17] MEDS: ROSUVASTATIN 10 MG TAB (CRESTOR) PO (09:03)
[2017-06-17] MEDS: FERROUS SULFATE 325MG TAB PO (09:03)
[2017-06-17] MEDS: GABAPENTIN 400 MG CAP PO ×3 (09:03→20:19)
[2017-06-17] MEDS: VENLAFAXINE **XR** 75MG CAPSULE PO (09:03)
[2017-06-17] MEDS: OMEPRAZOLE 20 MG CAP PO ×2 (09:03→20:19)
[2017-06-17] MEDS: TUBERCULIN PPD 5 UNITS/0.1 ML ID (17:25)
[2017-06-17] MEDS: QUEtiapine FUMARATE 100 MG TAB PO (20:18)
[2017-06-17] MEDS: traZODone 100 MG TAB PO (20:18)
[2017-06-17] MEDS: TRIAMCINOLONE ACET 0.1% CREAM 80 GM EXT (20:19)
[2017-06-18] MEDS: LEVOTHYROXINE 125MCG TABLET (0.125MG) PO (06:13)
[2017-06-18] MEDS: OMEPRAZOLE 20 MG CAP PO ×2 (08:54→20:11)
[2017-06-18] MEDS: GABAPENTIN 400 MG CAP PO ×3 (08:54→20:11)
[2017-06-18] MEDS: ROSUVASTATIN 10 MG TAB (CRESTOR) PO (08:54)
[2017-06-18] MEDS: VENLAFAXINE **XR** 75MG CAPSULE PO (08:54)
[2017-06-18] MEDS: buPROPion **XL** TABLET 150MG (WELLBUTRIN XL) PO (08:54)
[2017-06-18] MEDS: FERROUS SULFATE 325MG TAB PO (08:54)
[2017-06-18] MEDS: TRIAMCINOLONE ACET 0.1% CREAM 80 GM EXT ×2 (08:55→20:12)
[2017-06-18 09:39] LABS: HEPATITIS B SURFACE ANTIGEN NEGATIVE (NEGATIVE)
[2017-06-18 10:06] LABS: HEPATITIS C VIRUS ABY INDEX 0.1 INDEX (<0.8)
[2017-06-18 10:06] LABS: HEPATITIS B CORE ANTIBODY IGM NEGATIVE (NEGATIVE)
[2017-06-18 10:09] LABS: HEPATITIS A ANTIBODY IGM NEGATIVE (NEGATIVE)
[2017-06-18] MEDS: traZODone 100 MG TAB PO (20:11)
[2017-06-18] MEDS: QUEtiapine FUMARATE 100 MG TAB PO (20:12)
[2017-06-19] MEDS: LEVOTHYROXINE 125MCG TABLET (0.125MG) PO (05:47)
[2017-06-19] MEDS: OMEPRAZOLE 20 MG CAP PO ×2 (09:15→20:16)
[2017-06-19] MEDS: FERROUS SULFATE 325MG TAB PO (09:15)
[2017-06-19] MEDS: buPROPion **XL** TABLET 150MG (WELLBUTRIN XL) PO (09:15)
[2017-06-19] MEDS: GABAPENTIN 400 MG CAP PO ×3 (09:15→20:16)
[2017-06-19] MEDS: VENLAFAXINE **XR** 75MG CAPSULE PO (09:15)
[2017-06-19] MEDS: ROSUVASTATIN 10 MG TAB (CRESTOR) PO (09:17)
[2017-06-19] MEDS: TRIAMCINOLONE ACET 0.1% CREAM 80 GM EXT (09:17)
[2017-06-19] MEDS: PPD DOCUMENTATION ENTRY MISC XX (15:29)
[2017-06-19] MEDS: QUEtiapine FUMARATE 100 MG TAB PO (20:16)
[2017-06-19] MEDS: traZODone 100 MG TAB PO (20:16)
[2017-06-20] MEDS: LEVOTHYROXINE 125MCG TABLET (0.125MG) PO (05:45)
[2017-06-20] MEDS: ROSUVASTATIN 10 MG TAB (CRESTOR) PO (08:58)
[2017-06-20] MEDS: OMEPRAZOLE 20 MG CAP PO ×2 (08:58→20:12)
[2017-06-20] MEDS: FERROUS SULFATE 325MG TAB PO (08:58)
[2017-06-20] MEDS: GABAPENTIN 400 MG CAP PO ×3 (08:58→20:12)
[2017-06-20] MEDS: TRIAMCINOLONE ACET 0.1% CREAM 80 GM EXT (08:58)
[2017-06-20] MEDS: VENLAFAXINE **XR** 75MG CAPSULE PO (08:59)
[2017-06-20] MEDS: buPROPion **XL** TABLET 150MG (WELLBUTRIN XL) PO (08:59)
[2017-06-20] MEDS: traZODone 100 MG TAB PO (20:12)
[2017-06-20] MEDS: QUEtiapine FUMARATE 100 MG TAB PO (20:12)
[2017-06-21] MEDS: LEVOTHYROXINE 125MCG TABLET (0.125MG) PO (06:06)
[2017-06-21] MEDS: GABAPENTIN 400 MG CAP PO (08:50)
[2017-06-21] MEDS: VENLAFAXINE **XR** 75MG CAPSULE PO (08:50)
[2017-06-21] MEDS: buPROPion **XL** TABLET 150MG (WELLBUTRIN XL) PO (08:50)
[2017-06-21] MEDS: TRIAMCINOLONE ACET 0.1% CREAM 80 GM EXT (08:50)
[2017-06-21] MEDS: FERROUS SULFATE 325MG TAB PO (08:51)
[2017-06-21] MEDS: ROSUVASTATIN 10 MG TAB (CRESTOR) PO (08:51)
[2017-06-21] MEDS: OMEPRAZOLE 20 MG CAP PO ×2 (08:51→20:51)
[2017-06-21] MEDS: traZODone 100 MG TAB PO (20:52)
[2017-06-21] MEDS: QUEtiapine FUMARATE 100 MG TAB PO (20:52)
[2017-06-21] MEDS ORDERED: GABAPENTIN 400 MG CAP PO (21:00)
[2017-06-21] MEDS: GABAPENTIN 100 MG CAP PO (21:08)
[2017-06-22] MEDS: LEVOTHYROXINE 125MCG TABLET (0.125MG) PO (06:12)
[2017-06-22] MEDS: FERROUS SULFATE 325MG TAB PO (08:20)
[2017-06-22] MEDS: ROSUVASTATIN 10 MG TAB (CRESTOR) PO (08:20)
[2017-06-22] MEDS: buPROPion **XL** TABLET 150MG (WELLBUTRIN XL) PO (08:20)
[2017-06-22] MEDS: VENLAFAXINE **XR** 75MG CAPSULE PO (08:20)
[2017-06-22] MEDS: OMEPRAZOLE 20 MG CAP PO ×2 (08:20→20:10)
[2017-06-22] MEDS: GABAPENTIN 100 MG CAP PO ×2 (08:20→20:10)
[2017-06-22] MEDS: VITAMIN D 50,000 UNITS CAPSULE (ERGOCALCIFEROL 1.25MG) PO (08:20)
[2017-06-22] MEDS: TRIAMCINOLONE ACET 0.1% CREAM 80 GM EXT ×2 (08:21→20:09)
[2017-06-22] MEDS: busPIRone 5 MG TAB PO ×2 (10:34→20:10)
[2017-06-22] MEDS: ACETAMINOPHEN TAB 650MG DOSE (2X325MG) PO ×2 (10:38→18:06)
[2017-06-22] MEDS: QUEtiapine FUMARATE 100 MG TAB PO (20:09)
[2017-06-22] MEDS: traZODone 100 MG TAB PO (20:10)
[2017-06-23] MEDS: LEVOTHYROXINE 125MCG TABLET (0.125MG) PO (06:05)
[2017-06-23] MEDS: ROSUVASTATIN 10 MG TAB (CRESTOR) PO (08:07)
[2017-06-23] MEDS: buPROPion **XL** TABLET 150MG (WELLBUTRIN XL) PO (08:08)
[2017-06-23] MEDS: FERROUS SULFATE 325MG TAB PO (08:08)
[2017-06-23] MEDS: GABAPENTIN 100 MG CAP PO ×2 (08:08→21:01)
[2017-06-23] MEDS: OMEPRAZOLE 20 MG CAP PO ×2 (08:08→21:02)
[2017-06-23] MEDS: VENLAFAXINE **XR** 75MG CAPSULE PO (08:08)
[2017-06-23] MEDS: busPIRone 5 MG TAB PO ×2 (08:08→21:02)
[2017-06-23] MEDS: TRIAMCINOLONE ACET 0.1% CREAM 80 GM EXT (08:10)
[2017-06-23] MEDS ORDERED: traZODone 50 MG TAB PO (09:45)
[2017-06-23] MEDS: LITHIUM CARBONATE 300 MG CAP PO ×2 (10:24→21:01)
[2017-06-23] MEDS: traZODone 100 MG TAB PO (21:03)
[2017-06-23] MEDS: QUEtiapine FUMARATE 100 MG TAB PO (21:03)
[2017-06-24] MEDS: LEVOTHYROXINE 125MCG TABLET (0.125MG) PO (05:43)
[2017-06-24] MEDS: ROSUVASTATIN 10 MG TAB (CRESTOR) PO (08:53)
[2017-06-24] MEDS: GABAPENTIN 100 MG CAP PO (08:53)
[2017-06-24] MEDS: TRIAMCINOLONE ACET 0.1% CREAM 80 GM EXT (08:53)
[2017-06-24] MEDS: busPIRone 5 MG TAB PO ×2 (08:53→20:37)
[2017-06-24] MEDS: OMEPRAZOLE 20 MG CAP PO ×2 (08:53→20:37)
[2017-06-24] MEDS: LITHIUM CARBONATE 300 MG CAP PO ×2 (08:54→20:37)
[2017-06-24] MEDS: VITAMIN D 50,000 UNITS CAPSULE (ERGOCALCIFEROL 1.25MG) PO (08:54)
[2017-06-24] MEDS: VENLAFAXINE **XR** 75MG CAPSULE PO (08:54)
[2017-06-24] MEDS: FERROUS SULFATE 325MG TAB PO (08:54)
[2017-06-24] MEDS: buPROPion **XL** TABLET 150MG (WELLBUTRIN XL) PO (08:54)
[2017-06-24] MEDS: QUEtiapine FUMARATE 100 MG TAB PO (20:36)
[2017-06-24] MEDS: traZODone 100 MG TAB PO (20:37)
[2017-06-25] MEDS: LEVOTHYROXINE 125MCG TABLET (0.125MG) PO (05:50)
[2017-06-25] MEDS: VENLAFAXINE **XR** 75MG CAPSULE PO (08:09)
[2017-06-25] MEDS: ROSUVASTATIN 10 MG TAB (CRESTOR) PO (08:09)
[2017-06-25] MEDS: busPIRone 5 MG TAB PO ×2 (08:10→20:36)
[2017-06-25] MEDS: OMEPRAZOLE 20 MG CAP PO ×2 (08:10→20:36)
[2017-06-25] MEDS: FERROUS SULFATE 325MG TAB PO (08:10)
[2017-06-25] MEDS: LITHIUM CARBONATE 300 MG CAP PO ×2 (08:10→20:35)
[2017-06-25] MEDS: TRIAMCINOLONE ACET 0.1% CREAM 80 GM EXT ×2 (08:10→20:35)
[2017-06-25] MEDS: buPROPion **XL** TABLET 150MG (WELLBUTRIN XL) PO (08:10)
[2017-06-25] MEDS: IBUPROFEN 800 MG TAB PO (11:37)
[2017-06-25] MEDS: QUEtiapine FUMARATE 100 MG TAB PO (20:35)
[2017-06-25] MEDS: traZODone 50 MG TAB PO (20:36)
[2017-06-26] MEDS: LEVOTHYROXINE 125MCG TABLET (0.125MG) PO (06:57)
[2017-06-26] MEDS: ROSUVASTATIN 10 MG TAB (CRESTOR) PO (08:51)
[2017-06-26] MEDS: buPROPion **XL** TABLET 150MG (WELLBUTRIN XL) PO (08:52)
[2017-06-26] MEDS: VENLAFAXINE **XR** 75MG CAPSULE PO (08:53)
[2017-06-26] MEDS: OMEPRAZOLE 20 MG CAP PO ×2 (08:53→20:45)
[2017-06-26] MEDS: FERROUS SULFATE 325MG TAB PO (08:54)
[2017-06-26] MEDS: LITHIUM CARBONATE 300 MG CAP PO ×2 (08:54→20:45)
[2017-06-26] MEDS: IBUPROFEN 800 MG TAB PO ×2 (08:54→17:07)
[2017-06-26] MEDS: busPIRone 5 MG TAB PO ×2 (08:55→20:45)
[2017-06-26] MEDS: TRIAMCINOLONE ACET 0.1% CREAM 80 GM EXT ×2 (08:56→20:44)
[2017-06-26] MEDS: QUEtiapine FUMARATE 100 MG TAB PO (20:44)
[2017-06-26] MEDS: traZODone 50 MG TAB PO (20:45)
[2017-06-27] MEDS: LEVOTHYROXINE 125MCG TABLET (0.125MG) PO (06:29)
[2017-06-27] MEDS: OMEPRAZOLE 20 MG CAP PO ×2 (09:05→20:23)
[2017-06-27] MEDS: ROSUVASTATIN 10 MG TAB (CRESTOR) PO (09:05)
[2017-06-27] MEDS: LITHIUM CARBONATE 300 MG CAP PO ×2 (09:05→20:23)
[2017-06-27] MEDS: buPROPion **XL** TABLET 150MG (WELLBUTRIN XL) PO (09:05)
[2017-06-27] MEDS: VENLAFAXINE **XR** 75MG CAPSULE PO (09:05)
[2017-06-27] MEDS: busPIRone 5 MG TAB PO ×2 (09:06→20:23)
[2017-06-27] MEDS: FERROUS SULFATE 325MG TAB PO (09:06)
[2017-06-27] MEDS: IBUPROFEN 800 MG TAB PO (09:07)
[2017-06-27] MEDS: MOM 30ML SUSPENSION UDC PO (10:22)
[2017-06-27] MEDS: QUEtiapine FUMARATE 100 MG TAB PO (20:23)
[2017-06-27] MEDS: traZODone 50 MG TAB PO (20:23)
[2017-06-27] MEDS: TRIAMCINOLONE ACET 0.1% CREAM 80 GM EXT (20:24)
[2017-06-28] MEDS: LEVOTHYROXINE 125MCG TABLET (0.125MG) PO (05:51)
[2017-06-28 08:11] LABS: BASO % 0.4 % (0.0-1.0); EOS # 0.1 10^3/uL (0.0-0.50); EOS % 1.8 % (0.0-3.0); HEMATOCRIT 40.3 % (36.0-47.0); IMMATURE GRANULOCYTE % 0.3 % (0-0); LYMPH # 1.8 10^3/uL (1.5-4.5); LYMPH % 26.5 % (24.0-44.0); MEAN CORPUSCULAR HEMOGLOBIN 28.8 pg (27.0-33.0); MEAN CORPUSCULAR HGB CONC 32.3 g/dl (32.0-36.5); MEAN CORPUSCULAR VOLUME 89.4 fl (80.0-96.0); MONO # 0.6 10^3/uL (0.0-0.8); MONO % 8.6 % (0.0-5.0); NEUTROPHILS # 4.2 10^3/uL (1.8-7.7); NEUTROPHILS % 62.4 % (36.0-66.0); PLATELET COUNT, AUTOMATED 266 10^3/uL (150-450); RED BLOOD COUNT 4.51 10^6/uL (4.00-5.40); RED CELL DISTRIBUTION WIDTH 13.4 % (11.5-14.5); WHITE BLOOD COUNT 6.8 10^3/uL (4.0-10.0)
[2017-06-28 08:39] LABS: ALBUMIN 3.9 GM/DL (3.2-5.2); ALBUMIN/GLOBULIN RATIO 1.18 (1.00-1.93); ALKALINE PHOSPHATASE 59 U/L (45-117); ALT/SGPT 23 U/L (12-78); ANION GAP 5 MEQ/L (8-16); AST/SGOT 15 U/L (7-37); BILIRUBIN,TOTAL 0.4 MG/DL (0.2-1.0); BLOOD UREA NITROGEN 20 MG/DL (7-18); CARBON DIOXIDE LEVEL 30 MEQ/L (21-32); CHLORIDE LEVEL 109 MEQ/L (98-107); CREATININE FOR GFR 0.75 MG/DL (0.55-1.30); GLOMERULAR FILTRATION RATE > 60.0 (>51); GLUCOSE, FASTING 100 MG/DL (70-100); POTASSIUM SERUM 4.8 MEQ/L (3.5-5.1); SODIUM LEVEL 144 MEQ/L (136-145); TOTAL PROTEIN 7.2 GM/DL (6.4-8.2)
[2017-06-28 08:44] LABS: LITHIUM LEVEL 0.53 MEQ/L (0.60-1.20)
[2017-06-28] MEDS: LITHIUM CARBONATE 300 MG CAP PO ×2 (09:14→20:56)
[2017-06-28] MEDS: FERROUS SULFATE 325MG TAB PO (09:14)
[2017-06-28] MEDS: TRIAMCINOLONE ACET 0.1% CREAM 80 GM EXT (09:14)
[2017-06-28] MEDS: VENLAFAXINE **XR** 75MG CAPSULE PO (09:15)
[2017-06-28] MEDS: OMEPRAZOLE 20 MG CAP PO ×2 (09:15→20:56)
[2017-06-28] MEDS: busPIRone 5 MG TAB PO ×2 (09:15→20:56)
[2017-06-28] MEDS: buPROPion **XL** TABLET 150MG (WELLBUTRIN XL) PO (09:15)
[2017-06-28] MEDS: ROSUVASTATIN 10 MG TAB (CRESTOR) PO (09:15)
[2017-06-28] MEDS: IBUPROFEN 800 MG TAB PO (17:19)
[2017-06-28] MEDS: QUEtiapine FUMARATE 100 MG TAB PO (20:56)
[2017-06-28] MEDS: traZODone 50 MG TAB PO (20:56)
[2017-06-29] MEDS: LEVOTHYROXINE 125MCG TABLET (0.125MG) PO (05:54)
[2017-06-29] MEDS: ROSUVASTATIN 10 MG TAB (CRESTOR) PO (09:01)
[2017-06-29] MEDS: FERROUS SULFATE 325MG TAB PO (09:01)
[2017-06-29] MEDS: busPIRone 5 MG TAB PO ×3 (09:01→20:50)
[2017-06-29] MEDS: OMEPRAZOLE 20 MG CAP PO ×2 (09:01→20:50)
[2017-06-29] MEDS: LITHIUM CARBONATE 300 MG CAP PO ×2 (09:01→20:51)
[2017-06-29] MEDS: VENLAFAXINE **XR** 75MG CAPSULE PO (09:01)
[2017-06-29] MEDS: buPROPion **XL** TABLET 150MG (WELLBUTRIN XL) PO (09:02)
[2017-06-29] MEDS: QUEtiapine FUMARATE 100 MG TAB PO (20:51)
[2017-06-29] MEDS: traZODone 100 MG TAB PO (20:51)
[2017-06-30] MEDS: LEVOTHYROXINE 125MCG TABLET (0.125MG) PO (06:25)
[2017-06-30] MEDS: buPROPion **XL** TABLET 150MG (WELLBUTRIN XL) PO (08:42)
[2017-06-30] MEDS: VENLAFAXINE **XR** 75MG CAPSULE PO (08:42)
[2017-06-30] MEDS: LITHIUM CARBONATE 300 MG CAP PO ×2 (08:42→20:47)
[2017-06-30] MEDS: ROSUVASTATIN 10 MG TAB (CRESTOR) PO (08:42)
[2017-06-30] MEDS: busPIRone 5 MG TAB PO ×3 (08:42→20:45)
[2017-06-30] MEDS: FERROUS SULFATE 325MG TAB PO (08:42)
[2017-06-30] MEDS: OMEPRAZOLE 20 MG CAP PO ×2 (08:42→20:46)
[2017-06-30] MEDS: IBUPROFEN 800 MG TAB PO (16:57)
[2017-06-30] MEDS: traZODone 100 MG TAB PO (20:46)
[2017-06-30] MEDS: QUEtiapine FUMARATE 100 MG TAB PO (20:46)
[2017-07-01] MEDS: LEVOTHYROXINE 125MCG TABLET (0.125MG) PO (05:58)
[2017-07-01 07:42] LABS: HEMATOCRIT 40.7 % (36.0-47.0); HEMOGLOBIN 13.1 g/dl (12.0-16.0); MEAN CORPUSCULAR HEMOGLOBIN 28.8 pg (27.0-33.0); MEAN CORPUSCULAR HGB CONC 32.2 g/dl (32.0-36.5); MEAN CORPUSCULAR VOLUME 89.5 fl (80.0-96.0); PLATELET COUNT, AUTOMATED 284 10^3/uL (150-450); RED BLOOD COUNT 4.55 10^6/uL (4.00-5.40); RED CELL DISTRIBUTION WIDTH 13.5 % (11.5-14.5); WHITE BLOOD COUNT 7.9 10^3/uL (4.0-10.0)
[2017-07-01 08:04] LABS: ALBUMIN 3.9 GM/DL (3.2-5.2); ALBUMIN/GLOBULIN RATIO 1.22 (1.00-1.93); ALKALINE PHOSPHATASE 65 U/L (45-117); ALT/SGPT 24 U/L (12-78); ANION GAP 6 MEQ/L (8-16); AST/SGOT 12 U/L (7-37); BILIRUBIN,TOTAL 0.4 MG/DL (0.2-1.0); BLOOD UREA NITROGEN 17 MG/DL (7-18); CARBON DIOXIDE LEVEL 31 MEQ/L (21-32); CHLORIDE LEVEL 106 MEQ/L (98-107); CREATININE FOR GFR 0.82 MG/DL (0.55-1.30); GLOMERULAR FILTRATION RATE > 60.0 (>51); GLUCOSE, FASTING 108 MG/DL (70-100); POTASSIUM SERUM 4.4 MEQ/L (3.5-5.1); SODIUM LEVEL 143 MEQ/L (136-145); TOTAL PROTEIN 7.1 GM/DL (6.4-8.2)
[2017-07-01 08:06] LABS: LITHIUM LEVEL 0.58 MEQ/L (0.60-1.20)
[2017-07-01] MEDS: busPIRone 5 MG TAB PO ×3 (08:45→20:52)
[2017-07-01] MEDS: VENLAFAXINE **XR** 75MG CAPSULE PO (08:45)
[2017-07-01] MEDS: buPROPion **XL** TABLET 150MG (WELLBUTRIN XL) PO (08:45)
[2017-07-01] MEDS: ROSUVASTATIN 10 MG TAB (CRESTOR) PO (08:45)
[2017-07-01] MEDS: OMEPRAZOLE 20 MG CAP PO ×2 (08:45→20:51)
[2017-07-01] MEDS: LITHIUM CARBONATE 300 MG CAP PO ×2 (08:45→20:51)
[2017-07-01] MEDS: TRIAMCINOLONE ACET 0.1% CREAM 80 GM EXT (08:45)
[2017-07-01] MEDS: FERROUS SULFATE 325MG TAB PO (08:45)
[2017-07-01] MEDS: QUEtiapine FUMARATE 100 MG TAB PO (20:51)
[2017-07-01] MEDS: traZODone 100 MG TAB PO (20:53)
[2017-07-02] MEDS: LEVOTHYROXINE 125MCG TABLET (0.125MG) PO (06:09)
[2017-07-02] MEDS: TRIAMCINOLONE ACET 0.1% CREAM 80 GM EXT (08:41)
[2017-07-02] MEDS: OMEPRAZOLE 20 MG CAP PO ×2 (08:42→20:31)
[2017-07-02] MEDS: VENLAFAXINE **XR** 75MG CAPSULE PO (08:42)
[2017-07-02] MEDS: LITHIUM CARBONATE 300 MG CAP PO ×2 (08:42→20:31)
[2017-07-02] MEDS: buPROPion **XL** TABLET 150MG (WELLBUTRIN XL) PO (08:42)
[2017-07-02] MEDS: FERROUS SULFATE 325MG TAB PO (08:42)
[2017-07-02] MEDS: busPIRone 5 MG TAB PO ×3 (08:42→20:31)
[2017-07-02] MEDS: ROSUVASTATIN 10 MG TAB (CRESTOR) PO (08:42)
[2017-07-02] MEDS: IBUPROFEN 800 MG TAB PO (09:41)
[2017-07-02] MEDS: traZODone 100 MG TAB PO (20:30)
[2017-07-02] MEDS: QUEtiapine FUMARATE 100 MG TAB PO (20:31)
[2017-07-03] MEDS: LEVOTHYROXINE 125MCG TABLET (0.125MG) PO (05:49)
[2017-07-03] MEDS: busPIRone 5 MG TAB PO ×3 (08:33→20:38)
[2017-07-03] MEDS: LITHIUM CARBONATE 300 MG CAP PO ×2 (08:33→20:38)
[2017-07-03] MEDS: OMEPRAZOLE 20 MG CAP PO ×2 (08:34→20:38)
[2017-07-03] MEDS: buPROPion **XL** TABLET 150MG (WELLBUTRIN XL) PO (08:34)
[2017-07-03] MEDS: FERROUS SULFATE 325MG TAB PO (08:34)
[2017-07-03] MEDS: VENLAFAXINE **XR** 75MG CAPSULE PO (08:34)
[2017-07-03] MEDS: ROSUVASTATIN 10 MG TAB (CRESTOR) PO (08:36)
[2017-07-03] MEDS: QUEtiapine FUMARATE 100 MG TAB PO (20:38)
[2017-07-03] MEDS: traZODone 100 MG TAB PO (20:38)
[2017-07-04] MEDS: LEVOTHYROXINE 125MCG TABLET (0.125MG) PO (06:26)
[2017-07-04] MEDS: ROSUVASTATIN 10 MG TAB (CRESTOR) PO (08:46)
[2017-07-04] MEDS: TRIAMCINOLONE ACET 0.1% CREAM 80 GM EXT (08:46)
[2017-07-04] MEDS: VENLAFAXINE **XR** 75MG CAPSULE PO (08:46)
[2017-07-04] MEDS: busPIRone 5 MG TAB PO ×3 (08:47→20:28)
[2017-07-04] MEDS: LITHIUM CARBONATE 300 MG CAP PO ×2 (08:47→20:30)
[2017-07-04] MEDS: buPROPion **XL** TABLET 150MG (WELLBUTRIN XL) PO (08:47)
[2017-07-04] MEDS: FERROUS SULFATE 325MG TAB PO (08:47)
[2017-07-04] MEDS: OMEPRAZOLE 20 MG CAP PO ×2 (08:47→20:31)
[2017-07-04] MEDS: traZODone 100 MG TAB PO (20:29)
[2017-07-04] MEDS: QUEtiapine FUMARATE 100 MG TAB PO (20:32)
[2017-07-04] MEDS: IBUPROFEN 800 MG TAB PO (20:33)
[2017-07-05] MEDS: LEVOTHYROXINE 125MCG TABLET (0.125MG) PO (06:14)
[2017-07-05] MEDS: ROSUVASTATIN 10 MG TAB (CRESTOR) PO (09:19)
[2017-07-05] MEDS: OMEPRAZOLE 20 MG CAP PO ×2 (09:19→21:01)
[2017-07-05] MEDS: VENLAFAXINE **XR** 75MG CAPSULE PO (09:19)
[2017-07-05] MEDS: FERROUS SULFATE 325MG TAB PO (09:20)
[2017-07-05] MEDS: LITHIUM CARBONATE 300 MG CAP PO ×2 (09:20→21:00)
[2017-07-05] MEDS: buPROPion **XL** TABLET 150MG (WELLBUTRIN XL) PO (09:20)
[2017-07-05] MEDS: busPIRone 5 MG TAB PO ×3 (09:20→21:00)
[2017-07-05] MEDS: traZODone 100 MG TAB PO (21:00)
[2017-07-05] MEDS: QUEtiapine FUMARATE 100 MG TAB PO (21:00)
[2017-07-06] MEDS: LEVOTHYROXINE 125MCG TABLET (0.125MG) PO (06:10)
[2017-07-06] MEDS: ROSUVASTATIN 10 MG TAB (CRESTOR) PO (08:56)
[2017-07-06] MEDS: VITAMIN D 50,000 UNITS CAPSULE (ERGOCALCIFEROL 1.25MG) PO (08:57)
[2017-07-06] MEDS: VENLAFAXINE **XR** 75MG CAPSULE PO (08:57)
[2017-07-06] MEDS: buPROPion **XL** TABLET 150MG (WELLBUTRIN XL) PO (08:57)
[2017-07-06] MEDS: OMEPRAZOLE 20 MG CAP PO ×2 (08:57→21:01)
[2017-07-06] MEDS: FERROUS SULFATE 325MG TAB PO (08:57)
[2017-07-06] MEDS: LITHIUM CARBONATE 300 MG CAP PO ×2 (08:57→21:02)
[2017-07-06] MEDS: busPIRone 5 MG TAB PO (08:57)
[2017-07-06] MEDS: busPIRone 10 MG TAB PO ×2 (16:02→21:00)
[2017-07-06] MEDS: QUEtiapine FUMARATE 100 MG TAB PO (21:01)
[2017-07-06] MEDS: traZODone 100 MG TAB PO (21:01)
[2017-07-07] MEDS: LEVOTHYROXINE 125MCG TABLET (0.125MG) PO (06:05)
[2017-07-07] MEDS: busPIRone 10 MG TAB PO ×3 (08:55→20:08)
[2017-07-07] MEDS: VENLAFAXINE **XR** 75MG CAPSULE PO (08:55)
[2017-07-07] MEDS: ROSUVASTATIN 10 MG TAB (CRESTOR) PO (08:55)
[2017-07-07] MEDS: OMEPRAZOLE 20 MG CAP PO ×2 (08:55→20:07)
[2017-07-07] MEDS: FERROUS SULFATE 325MG TAB PO (08:55)
[2017-07-07] MEDS: buPROPion **XL** TABLET 150MG (WELLBUTRIN XL) PO (08:55)
[2017-07-07] MEDS: LITHIUM CARBONATE 300 MG CAP PO ×2 (08:55→20:08)
[2017-07-07] MEDS: traZODone 100 MG TAB PO (20:08)
[2017-07-07] MEDS: QUEtiapine FUMARATE 100 MG TAB PO (20:08)
[2017-07-08] MEDS: LEVOTHYROXINE 125MCG TABLET (0.125MG) PO (06:12)
[2017-07-08] MEDS: OMEPRAZOLE 20 MG CAP PO ×2 (08:14→20:27)
[2017-07-08] MEDS: LITHIUM CARBONATE 300 MG CAP PO ×2 (08:14→20:27)
[2017-07-08] MEDS: FERROUS SULFATE 325MG TAB PO (08:14)
[2017-07-08] MEDS: busPIRone 10 MG TAB PO ×3 (08:14→20:27)
[2017-07-08] MEDS: buPROPion **XL** TABLET 150MG (WELLBUTRIN XL) PO (08:14)
[2017-07-08] MEDS: VENLAFAXINE **XR** 75MG CAPSULE PO (08:14)
[2017-07-08] MEDS: ROSUVASTATIN 10 MG TAB (CRESTOR) PO (10:20)
[2017-07-08] MEDS: traZODone 100 MG TAB PO (20:27)
[2017-07-08] MEDS: RAMELTEON 8 MG TAB (ROZEREM) PO (20:27)
[2017-07-09] MEDS: LEVOTHYROXINE 125MCG TABLET (0.125MG) PO (05:50)
[2017-07-09 07:46] LABS: LITHIUM LEVEL 0.51 MEQ/L (0.60-1.20)
[2017-07-09] MEDS: VENLAFAXINE **XR** 75MG CAPSULE PO (08:14)
[2017-07-09] MEDS: busPIRone 10 MG TAB PO ×3 (08:14→20:35)
[2017-07-09] MEDS: FERROUS SULFATE 325MG TAB PO (08:14)
[2017-07-09] MEDS: buPROPion **XL** TABLET 150MG (WELLBUTRIN XL) PO (08:14)
[2017-07-09] MEDS: LITHIUM CARBONATE 300 MG CAP PO ×2 (08:14→20:35)
[2017-07-09] MEDS: OMEPRAZOLE 20 MG CAP PO ×2 (08:14→20:35)
[2017-07-09] MEDS: ROSUVASTATIN 10 MG TAB (CRESTOR) PO (08:16)
[2017-07-09] MEDS: traZODone 100 MG TAB PO (20:35)
[2017-07-09] MEDS: RAMELTEON 8 MG TAB (ROZEREM) PO (20:35)
[2017-07-10] MEDS: LEVOTHYROXINE 125MCG TABLET (0.125MG) PO (06:05)
[2017-07-10] MEDS: ROSUVASTATIN 10 MG TAB (CRESTOR) PO (08:53)
[2017-07-10] MEDS: OMEPRAZOLE 20 MG CAP PO ×2 (08:53→20:50)
[2017-07-10] MEDS: VENLAFAXINE **XR** 75MG CAPSULE PO (08:54)
[2017-07-10] MEDS: busPIRone 10 MG TAB PO ×3 (08:55→20:49)
[2017-07-10] MEDS: buPROPion **XL** TABLET 150MG (WELLBUTRIN XL) PO (08:55)
[2017-07-10] MEDS: LITHIUM CARBONATE 300 MG CAP PO ×2 (08:55→20:50)
[2017-07-10] MEDS: FERROUS SULFATE 325MG TAB PO (08:55)
[2017-07-10] MEDS: RAMELTEON 8 MG TAB (ROZEREM) PO (20:49)
[2017-07-10] MEDS: traZODone 100 MG TAB PO (20:50)
[2017-07-11] MEDS: LEVOTHYROXINE 125MCG TABLET (0.125MG) PO (06:04)
[2017-07-11] MEDS: OMEPRAZOLE 20 MG CAP PO ×2 (08:51→20:07)
[2017-07-11] MEDS: VENLAFAXINE **XR** 75MG CAPSULE PO (08:51)
[2017-07-11] MEDS: busPIRone 10 MG TAB PO ×3 (08:51→20:08)
[2017-07-11] MEDS: ROSUVASTATIN 10 MG TAB (CRESTOR) PO (08:51)
[2017-07-11] MEDS: LITHIUM CARBONATE 300 MG CAP PO ×2 (08:52→20:07)
[2017-07-11] MEDS: buPROPion **XL** TABLET 150MG (WELLBUTRIN XL) PO (08:52)
[2017-07-11] MEDS: FERROUS SULFATE 325MG TAB PO (08:52)
[2017-07-11] MEDS: traZODone 100 MG TAB PO (20:07)
[2017-07-11] MEDS: RAMELTEON 8 MG TAB (ROZEREM) PO (20:07)
[2017-07-12] MEDS: LEVOTHYROXINE 125MCG TABLET (0.125MG) PO (06:04)
[2017-07-12] MEDS: LITHIUM CARBONATE 300 MG CAP PO ×2 (08:43→21:15)
[2017-07-12] MEDS: buPROPion **XL** TABLET 150MG (WELLBUTRIN XL) PO (08:44)
[2017-07-12] MEDS: busPIRone 10 MG TAB PO ×3 (08:44→21:15)
[2017-07-12] MEDS: OMEPRAZOLE 20 MG CAP PO ×2 (08:44→21:15)
[2017-07-12] MEDS: MOM 30ML SUSPENSION UDC PO (08:44)
[2017-07-12] MEDS: VENLAFAXINE **XR** 75MG CAPSULE PO (08:44)
[2017-07-12] MEDS: FERROUS SULFATE 325MG TAB PO (08:44)
[2017-07-12] MEDS: ROSUVASTATIN 10 MG TAB (CRESTOR) PO (08:44)
[2017-07-12] MEDS: traZODone 100 MG TAB PO (21:15)
[2017-07-12] MEDS: RAMELTEON 8 MG TAB (ROZEREM) PO (21:15)
[2017-07-13] MEDS: LEVOTHYROXINE 125MCG TABLET (0.125MG) PO (06:15)
[2017-07-13] MEDS: ROSUVASTATIN 10 MG TAB (CRESTOR) PO (08:08)
[2017-07-13] MEDS: buPROPion **XL** TABLET 150MG (WELLBUTRIN XL) PO (08:08)
[2017-07-13] MEDS: LITHIUM CARBONATE 300 MG CAP PO ×2 (08:09→21:06)
[2017-07-13] MEDS: VENLAFAXINE **XR** 75MG CAPSULE PO (08:09)
[2017-07-13] MEDS: OMEPRAZOLE 20 MG CAP PO ×2 (08:09→21:05)
[2017-07-13] MEDS: busPIRone 10 MG TAB PO ×3 (08:09→21:05)
[2017-07-13] MEDS: FERROUS SULFATE 325MG TAB PO (08:09)
[2017-07-13] MEDS: RAMELTEON 8 MG TAB (ROZEREM) PO (21:04)
[2017-07-13] MEDS: traZODone 100 MG TAB PO (21:06)
[2017-07-14] MEDS: LEVOTHYROXINE 125MCG TABLET (0.125MG) PO (06:18)
[2017-07-14 07:43] LABS: LITHIUM LEVEL 0.89 MEQ/L (0.60-1.20)
[2017-07-14] MEDS: ROSUVASTATIN 10 MG TAB (CRESTOR) PO (08:51)
[2017-07-14] MEDS: busPIRone 10 MG TAB PO ×3 (08:51→20:50)
[2017-07-14] MEDS: buPROPion **XL** TABLET 150MG (WELLBUTRIN XL) PO (08:51)
[2017-07-14] MEDS: FERROUS SULFATE 325MG TAB PO (08:51)
[2017-07-14] MEDS: LITHIUM CARBONATE 300 MG CAP PO ×2 (08:51→20:49)
[2017-07-14] MEDS: VENLAFAXINE **XR** 75MG CAPSULE PO (08:51)
[2017-07-14] MEDS: OMEPRAZOLE 20 MG CAP PO ×2 (08:51→20:49)
[2017-07-14] MEDS: RAMELTEON 8 MG TAB (ROZEREM) PO (20:49)
[2017-07-14] MEDS: traZODone 100 MG TAB PO (20:50)
[2017-07-15] MEDS: LEVOTHYROXINE 125MCG TABLET (0.125MG) PO (06:07)
[2017-07-15] MEDS: busPIRone 10 MG TAB PO ×3 (08:43→21:04)
[2017-07-15] MEDS: LITHIUM CARBONATE 300 MG CAP PO ×2 (08:43→21:04)
[2017-07-15] MEDS: FERROUS SULFATE 325MG TAB PO (08:43)
[2017-07-15] MEDS: MOM 30ML SUSPENSION UDC PO (08:43)
[2017-07-15] MEDS: OMEPRAZOLE 20 MG CAP PO ×2 (08:43→21:03)
[2017-07-15] MEDS: ROSUVASTATIN 10 MG TAB (CRESTOR) PO (08:43)
[2017-07-15] MEDS: buPROPion **XL** TABLET 150MG (WELLBUTRIN XL) PO (08:44)
[2017-07-15] MEDS: VENLAFAXINE **XR** 75MG CAPSULE PO (08:44)
[2017-07-15] MEDS: traZODone 100 MG TAB PO (21:03)
[2017-07-15] MEDS: RAMELTEON 8 MG TAB (ROZEREM) PO (21:03)
[2017-07-16] MEDS: LEVOTHYROXINE 125MCG TABLET (0.125MG) PO (06:12)
[2017-07-16] MEDS: buPROPion **XL** TABLET 150MG (WELLBUTRIN XL) PO (08:05)
[2017-07-16] MEDS: OMEPRAZOLE 20 MG CAP PO ×2 (08:05→21:12)
[2017-07-16] MEDS: VENLAFAXINE **XR** 75MG CAPSULE PO (08:05)
[2017-07-16] MEDS: ROSUVASTATIN 10 MG TAB (CRESTOR) PO (08:05)
[2017-07-16] MEDS: LITHIUM CARBONATE 300 MG CAP PO ×2 (08:06→21:13)
[2017-07-16] MEDS: FERROUS SULFATE 325MG TAB PO (08:06)
[2017-07-16] MEDS: busPIRone 10 MG TAB PO ×3 (08:06→21:11)
[2017-07-16] MEDS: RAMELTEON 8 MG TAB (ROZEREM) PO (21:11)
[2017-07-16] MEDS: traZODone 100 MG TAB PO (21:14)
[2017-07-17] MEDS: LEVOTHYROXINE 125MCG TABLET (0.125MG) PO (06:24)
[2017-07-17] MEDS: LITHIUM CARBONATE 300 MG CAP PO ×2 (08:50→20:53)
[2017-07-17] MEDS: OMEPRAZOLE 20 MG CAP PO ×2 (08:50→20:53)
[2017-07-17] MEDS: VENLAFAXINE **XR** 75MG CAPSULE PO (08:50)
[2017-07-17] MEDS: buPROPion **XL** TABLET 150MG (WELLBUTRIN XL) PO (08:51)
[2017-07-17] MEDS: ROSUVASTATIN 10 MG TAB (CRESTOR) PO (08:51)
[2017-07-17] MEDS: FERROUS SULFATE 325MG TAB PO (08:51)
[2017-07-17] MEDS: busPIRone 10 MG TAB PO ×3 (08:51→20:53)
[2017-07-17] MEDS: RAMELTEON 8 MG TAB (ROZEREM) PO (20:53)
[2017-07-17] MEDS: traZODone 100 MG TAB PO (20:54)
[2017-07-17] MEDS: MOM 30ML SUSPENSION UDC PO (20:54)
[2017-07-18] MEDS: LEVOTHYROXINE 125MCG TABLET (0.125MG) PO (06:52)
[2017-07-18] MEDS: TRIAMCINOLONE ACET 0.1% CREAM 80 GM EXT (08:48)
[2017-07-18] MEDS: OMEPRAZOLE 20 MG CAP PO ×2 (08:48→21:00)
[2017-07-18] MEDS: FERROUS SULFATE 325MG TAB PO (08:48)
[2017-07-18] MEDS: buPROPion **XL** TABLET 150MG (WELLBUTRIN XL) PO (08:48)
[2017-07-18] MEDS: busPIRone 10 MG TAB PO ×3 (08:48→21:00)
[2017-07-18] MEDS: VENLAFAXINE **XR** 75MG CAPSULE PO (08:48)
[2017-07-18] MEDS: LITHIUM CARBONATE 300 MG CAP PO ×2 (08:48→21:00)
[2017-07-18] MEDS: ROSUVASTATIN 10 MG TAB (CRESTOR) PO (08:48)
[2017-07-18] MEDS: MOM 30ML SUSPENSION UDC PO (16:12)
[2017-07-18] MEDS: FLUCONAZOLE 100 MG TAB PO (18:24)
[2017-07-18] MEDS: RAMELTEON 8 MG TAB (ROZEREM) PO (20:59)
[2017-07-18] MEDS: traZODone 100 MG TAB PO (21:00)
[2017-07-19] MEDS: LEVOTHYROXINE 125MCG TABLET (0.125MG) PO (06:07)
[2017-07-19] MEDS: VENLAFAXINE **XR** 75MG CAPSULE PO (08:44)
[2017-07-19] MEDS: ROSUVASTATIN 10 MG TAB (CRESTOR) PO (08:44)
[2017-07-19] MEDS: buPROPion **XL** TABLET 150MG (WELLBUTRIN XL) PO (08:44)
[2017-07-19] MEDS: OMEPRAZOLE 20 MG CAP PO ×2 (08:45→20:55)
[2017-07-19] MEDS: FLUCONAZOLE 100 MG TAB PO (08:45)
[2017-07-19] MEDS: busPIRone 10 MG TAB PO ×3 (08:45→20:55)
[2017-07-19] MEDS: FERROUS SULFATE 325MG TAB PO (08:45)
[2017-07-19] MEDS: LITHIUM CARBONATE 300 MG CAP PO ×2 (08:45→20:55)
[2017-07-19] MEDS: traZODone 100 MG TAB PO (20:55)
[2017-07-19] MEDS: RAMELTEON 8 MG TAB (ROZEREM) PO (20:55)
[2017-07-20] MEDS: LEVOTHYROXINE 125MCG TABLET (0.125MG) PO (06:02)
[2017-07-20] MEDS: LITHIUM CARBONATE 300 MG CAP PO ×2 (08:40→20:48)
[2017-07-20] MEDS: VITAMIN D 50,000 UNITS CAPSULE (ERGOCALCIFEROL 1.25MG) PO (08:40)
[2017-07-20] MEDS: VENLAFAXINE **XR** 75MG CAPSULE PO (08:41)
[2017-07-20] MEDS: busPIRone 10 MG TAB PO ×3 (08:41→20:47)
[2017-07-20] MEDS: buPROPion **XL** TABLET 150MG (WELLBUTRIN XL) PO (08:41)
[2017-07-20] MEDS: ROSUVASTATIN 10 MG TAB (CRESTOR) PO (08:41)
[2017-07-20] MEDS: OMEPRAZOLE 20 MG CAP PO ×2 (08:41→20:48)
[2017-07-20] MEDS: FERROUS SULFATE 325MG TAB PO (08:41)
[2017-07-20] MEDS: RAMELTEON 8 MG TAB (ROZEREM) PO (20:47)
[2017-07-20] MEDS: traZODone 100 MG TAB PO (20:48)
[2017-07-21] MEDS: LEVOTHYROXINE 125MCG TABLET (0.125MG) PO (06:40)
[2017-07-21] MEDS: FERROUS SULFATE 325MG TAB PO (08:20)
[2017-07-21] MEDS: ROSUVASTATIN 10 MG TAB (CRESTOR) PO (08:20)
[2017-07-21] MEDS: buPROPion **XL** TABLET 150MG (WELLBUTRIN XL) PO (08:20)
[2017-07-21] MEDS: LITHIUM CARBONATE 300 MG CAP PO (08:20)
[2017-07-21] MEDS: VENLAFAXINE **XR** 75MG CAPSULE PO (08:20)
[2017-07-21] MEDS: OMEPRAZOLE 20 MG CAP PO (08:20)
[2017-07-21] MEDS: busPIRone 10 MG TAB PO ×2 (08:20→15:30)
== END 2017-07-21 16:05 | DRG 881 ==
LOC: M ED 14:40 → M ED INP 17:58 → M PSY 19:05
PROVIDERS: Psychiatry & Neurology Psychiatry
DX: F32.9 Major depressive disorder, single episode, unspecified (principal); R45.851 Suicidal ideations; F60.3 Borderline personality disorder; F41.1 Generalized anxiety disorder; Z79.899 Other long term (current) drug therapy; M79.7 Fibromyalgia; G47.00 Insomnia, unspecified; E03.9 Hypothyroidism, unspecified; E78.5 Hyperlipidemia, unspecified; D50.9 Iron deficiency anemia, unspecified; K21.9 Gastro-esophageal reflux disease without esophagitis; Z95.0 Presence of cardiac pacemaker; F17.200 Nicotine dependence, unspecified, uncomplicated

== ENCOUNTER → 2017-09-13 | Outpatient (REF) | payer MEDICARE, MEDICAID ==
[2017-09-13 14:27] LABS: TOTAL 25(OH) VITAMIN D 62.4 NG/ML (30.0-100.0); VITAMIN B12 LEVEL 421 PG/ML (247-911)
[2017-09-13 14:35] LABS: ALBUMIN 4.1 GM/DL (3.2-5.2); ALBUMIN/GLOBULIN RATIO 1.21 (1.00-1.93); ALKALINE PHOSPHATASE 64 U/L (45-117); ALT/SGPT 29 U/L (12-78); ANION GAP 9 MEQ/L (8-16); AST/SGOT 17 U/L (7-37); BILIRUBIN,TOTAL 0.5 MG/DL (0.2-1.0); BLOOD UREA NITROGEN 13 MG/DL (7-18); CALCIUM LEVEL 9.4 MG/DL (8.5-10.1); CARBON DIOXIDE LEVEL 25 MEQ/L (21-32); CHLORIDE LEVEL 108 MEQ/L (98-107); CREATININE FOR GFR 0.73 MG/DL (0.55-1.30); FREE T4 1.09 NG/DL (0.76-1.46); GLOMERULAR FILTRATION RATE > 60.0 (>51); GLUCOSE, FASTING 95 MG/DL (70-100); POTASSIUM SERUM 4.2 MEQ/L (3.5-5.1); SODIUM LEVEL 142 MEQ/L (136-145); THYROID STIMULATING HORMONE 0.781 uIU/ML (0.358-3.740); TOTAL PROTEIN 7.5 GM/DL (6.4-8.2)
[2017-09-13 14:37] LABS: LITHIUM LEVEL 0.48 MEQ/L (0.60-1.20)
== END ==
LOC: M SFHCPLAZ 11:52
DX: E03.9 Hypothyroidism, unspecified (principal); E55.9 Vitamin D deficiency, unspecified; E53.8 Deficiency of other specified B group vitamins; R73.01 Impaired fasting glucose; F32.9 Major depressive disorder, single episode, unspecified; Z79.899 Other long term (current) drug therapy
CPT/HCPCS: 80178

== ENCOUNTER → 2017-11-16 | Outpatient (REF) | payer MEDICARE, MEDICAID ==
[2017-11-16 17:11] LABS: APPEARANCE, URINE CLEAR (CLEAR); BACTERIA, URINE AUTO NEGATIVE (NEGATIVE); BILIRUBIN, URINE AUTO NEGATIVE (NEGATIVE); BLOOD, URINE BLOOD NEGATIVE (NEGATIVE); COLOR, URINE STRAW (YELLOW); GLUCOSE, URINE (UA) AUTO NEGATIVE (NEGATIVE); KETONE, URINE AUTO NEGATIVE (NEGATIVE); LEUKOCYTE ESTERASE, URINE AUTO NEGATIVE (NEGATIVE); NITRITE, URINE AUTO NEGATIVE (NEGATIVE); PROTEIN, URINE AUTO NEGATIVE (NEGATIVE); RBC, URINE AUTO 1 /HPF (0-3); SPECIFIC GRAVITY URINE AUTO 1.005 (1.002-1.035); SQUAMOUS EPITHELIAL CELL UR AU 0 /HPF (0-6); UROBILINOGEN, URINE AUTO 0.2 mg/dL (0.0-2.0); WBC, URINE AUTO 0 /HPF (0-3)
[2017-11-16 17:23] LABS: BASO # 0.1 10^3/uL (0.0-0.2); BASO % 0.4 % (0.0-1.0); EOS # 0.1 10^3/uL (0.0-0.50); EOS % 0.6 % (0.0-3.0); HEMATOCRIT 39.6 % (36.0-47.0); HEMOGLOBIN 12.9 g/dl (12.0-15.5); IMMATURE GRANULOCYTE % 0.4 % (0-3.0); LYMPH # 1.7 10^3/uL (1.5-4.5); MEAN CORPUSCULAR HEMOGLOBIN 29.1 pg (27.0-33.0); MEAN CORPUSCULAR HGB CONC 32.6 g/dl (32.0-36.5); MEAN CORPUSCULAR VOLUME 89.4 fl (80.0-96.0); MONO # 0.7 10^3/uL (0.0-0.8); MONO % 5.9 % (0.0-5.0); NEUTROPHILS # 8.8 10^3/uL (1.8-7.7); NEUTROPHILS % 77.7 % (36.0-66.0); PLATELET COUNT, AUTOMATED 312 10^3/uL (150-450); RED BLOOD COUNT 4.43 10^6/uL (4.00-5.40); RED CELL DISTRIBUTION WIDTH 14.2 % (11.5-14.5); RETIC HEMOGLOBIN EQUIVALENT 35.1 pg (24-36); RETICULOCYTE # 75.8 10^9/L (17-77); RETICULOCYTE % 1.7 % (0.5-1.5); WHITE BLOOD COUNT 11.3 10^3/uL (4.0-10.0)
[2017-11-16 18:00] LABS: ALBUMIN 4.1 GM/DL (3.2-5.2); ALBUMIN/GLOBULIN RATIO 1.17 (1.00-1.93); ALKALINE PHOSPHATASE 67 U/L (45-117); ALT/SGPT 26 U/L (12-78); ANION GAP 11 MEQ/L (8-16); AST/SGOT 17 U/L (7-37); BILIRUBIN,TOTAL 0.4 MG/DL (0.2-1.0); BLOOD UREA NITROGEN 16 MG/DL (7-18); C REACTIVE PROTEIN QUANTITATIV < 0.30 MG/DL (0.00-0.30); CALCIUM LEVEL 9.2 MG/DL (8.5-10.1); CARBON DIOXIDE LEVEL 26 MEQ/L (21-32); CHLORIDE LEVEL 105 MEQ/L (98-107); CHOLESTEROL LEVEL 173 MG/DL (<200); CHOLESTEROL RISK RATIO 3.326 (<5); CPK CREATINE PHOSPHOKINASE 141 U/L (26-192); CREATININE FOR GFR 0.84 MG/DL (0.55-1.30); GLOMERULAR FILTRATION RATE > 60.0 (>51); GLUCOSE, FASTING 84 MG/DL (70-100); HDL CHOLESTEROL 52 MG/DL (>40); LDL CHOLESTEROL 97.2 MG/DL (<100); NON-HDL-C 121 MG/DL; POTASSIUM SERUM 4.4 MEQ/L (3.5-5.1); SODIUM LEVEL 142 MEQ/L (136-145); TOTAL PROTEIN 7.6 GM/DL (6.4-8.2); TRIGLYCERIDES LEVEL 119 MG/DL (<150)
[2017-11-16 18:07] LABS: LITHIUM LEVEL 0.35 MEQ/L (0.60-1.20)
[2017-11-16 18:10] LABS: CREATININE, URINE 15.7 MG/DL; MALB URINE SIEMENS < 5.0 MG/L; MAU/CREAT RATIO 31.8 MCG/MG (0.0-30.0)
[2017-11-16 18:52] LABS: ESTIMATED AVERAGE GLUCOSE 120 MG/DL (60-110); HEMOGLOBIN A1c 5.8 %
== END ==
LOC: M SFHCPLAZ 13:20
DX: D50.9 Iron deficiency anemia, unspecified (principal); E78.2 Mixed hyperlipidemia; R73.01 Impaired fasting glucose; F32.9 Major depressive disorder, single episode, unspecified
CPT/HCPCS: 82550

== ENCOUNTER → 2017-11-22 | Outpatient (CLI) | payer MEDICARE, MEDICAID | LOC: M WHC 11:02 | DX: Z12.31 Encounter for screening mammogram for malignant neoplasm of breast (principal); M81.0 Age-related osteoporosis without current pathological fracture; E03.9 Hypothyroidism, unspecified | CPT/HCPCS: 84443 ==

== ENCOUNTER → 2017-11-22 | Outpatient (REF) | payer MEDICARE, MEDICAID ==
[2017-11-22 16:57] LABS: FREE T4 0.71 NG/DL (0.76-1.46)
== END ==
LOC: M SFHCPLAZ 09:52 → M SFHCCLAY 09:54
DX: E03.9 Hypothyroidism, unspecified (principal)

== ENCOUNTER → 2017-12-27 | Outpatient (REF) | payer MEDICARE, MEDICAID ==
[2017-12-27 17:00] LABS: THYROID PEROXIDASE ANTIBODY 214.3 U/ML (<60.0)
[2017-12-27 17:35] LABS: FREE T4 0.69 NG/DL (0.76-1.46)
== END ==
LOC: M SFHCPLAZ 11:11
DX: E03.9 Hypothyroidism, unspecified (principal)
CPT/HCPCS: 84443

== ENCOUNTER → 2018-04-04 | Outpatient (REF) | payer MEDICARE, MEDICAID ==
[2018-04-04 18:29] LABS: BASO % 0.4 % (0.0-1.0); EOS # 0.1 10^3/uL (0.0-0.50); EOS % 1.3 % (0.0-3.0); HEMATOCRIT 40.4 % (36.0-47.0); HEMOGLOBIN 13.1 g/dl (12.0-15.5); IMMATURE GRANULOCYTE % 0.7 % (0-3.0); LYMPH % 24.2 % (24.0-44.0); MEAN CORPUSCULAR HEMOGLOBIN 29.3 pg (27.0-33.0); MEAN CORPUSCULAR HGB CONC 32.4 g/dl (32.0-36.5); MEAN CORPUSCULAR VOLUME 90.4 fl (80.0-96.0); MONO # 0.7 10^3/uL (0.0-0.8); MONO % 8.2 % (0.0-5.0); NEUTROPHILS # 5.5 10^3/uL (1.8-7.7); NEUTROPHILS % 65.2 % (36.0-66.0); PLATELET COUNT, AUTOMATED 310 10^3/uL (150-450); RED BLOOD COUNT 4.47 10^6/uL (4.00-5.40); RED CELL DISTRIBUTION WIDTH 14.1 % (11.5-14.5); RETIC HEMOGLOBIN EQUIVALENT 33.6 pg (24-36); RETICULOCYTE # 69.3 10^9/L (17-77); RETICULOCYTE % 1.6 % (0.5-1.5); WHITE BLOOD COUNT 8.4 10^3/uL (4.0-10.0)
[2018-04-04 18:40] LABS: APPEARANCE, URINE CLEAR (CLEAR); BACTERIA, URINE AUTO NEGATIVE (NEGATIVE); BILIRUBIN, URINE AUTO NEGATIVE (NEGATIVE); BLOOD, URINE BLOOD NEGATIVE (NEGATIVE); COLOR, URINE YELLOW (YELLOW); GLUCOSE, URINE (UA) AUTO NEGATIVE (NEGATIVE); KETONE, URINE AUTO NEGATIVE (NEGATIVE); LEUKOCYTE ESTERASE, URINE AUTO NEGATIVE (NEGATIVE); NITRITE, URINE AUTO NEGATIVE (NEGATIVE); PROTEIN, URINE AUTO NEGATIVE (NEGATIVE); RBC, URINE AUTO 1 /HPF (0-3); SPECIFIC GRAVITY URINE AUTO 1.013 (1.002-1.035); SQUAMOUS EPITHELIAL CELL UR AU 1 /HPF (0-6); UROBILINOGEN, URINE AUTO 0.2 mg/dL (0.0-2.0); WBC, URINE AUTO 1 /HPF (0-3)
[2018-04-04 18:45] LABS: C REACTIVE PROTEIN QUANTITATIV 0.58 MG/DL (0.00-0.30); CHOLESTEROL LEVEL 151 MG/DL (<200); CHOLESTEROL RISK RATIO 3.595 (<5); CPK CREATINE PHOSPHOKINASE 83 U/L (26-192); FREE T4 0.86 NG/DL (0.76-1.46); HDL CHOLESTEROL 42 MG/DL (>40); LDL CHOLESTEROL 81 MG/DL (<100); NON-HDL-C 109 MG/DL; TRIGLYCERIDES LEVEL 138 MG/DL (<150)
[2018-04-04 18:56] LABS: MALB URINE SIEMENS 6.5 MG/L
[2018-04-04 18:58] LABS: MAU/CREAT RATIO 11.1 MCG/MG (0.0-30.0)
[2018-04-04 19:34] LABS: ESTIMATED AVERAGE GLUCOSE 120 MG/DL (60-110); HEMOGLOBIN A1c 5.8 %
[2018-04-06 14:49] LABS: INSULIN LEVEL 14.6 uIU/mL (2.6-24.9)
== END ==
LOC: M SFHCCLAY 11:05
DX: E53.8 Deficiency of other specified B group vitamins (principal); E78.2 Mixed hyperlipidemia; F17.200 Nicotine dependence, unspecified, uncomplicated; R73.01 Impaired fasting glucose
CPT/HCPCS: 82550

== ENCOUNTER 2018-05-11 07:34 | Emergency (ER) | payer MEDICARE, MEDICAID ==
[2018-05-11] MEDS: MORPHINE 4 MG/ML 1ML VIAL/SYRINGE (J2270) IV (08:23)
[2018-05-11] MEDS: NS 1,000 ML IV (09:43)
== END 2018-05-11 09:59 | disposition short-term general hospital (02) ==
LOC: M ED 07:34
DX: S22.038A Other fracture of third thoracic vertebra, initial encounter for closed fracture (principal); S22.048A Other fracture of fourth thoracic vertebra, initial encounter for closed fracture; S22.058A Other fracture of T5-T6 vertebra, initial encounter for closed fracture; S12.100A Unspecified displaced fracture of second cervical vertebra, initial encounter for closed fracture; S02.113A Unspecified occipital condyle fracture, initial encounter for closed fracture; W10.8XXA Fall (on) (from) other stairs and steps, initial encounter; Y92.018 Other place in single-family (private) house as the place of occurrence of the external cause; F31.9 Bipolar disorder, unspecified; E78.9 Disorder of lipoprotein metabolism, unspecified; K20.8 Other esophagitis; M85.9 Disorder of bone density and structure, unspecified; G47.33 Obstructive sleep apnea (adult) (pediatric); M51.36 Other intervertebral disc degeneration, lumbar region; Z79.899 Other long term (current) drug therapy; Z87.891 Personal history of nicotine dependence
CPT/HCPCS: J2270

== ENCOUNTER → 2018-06-22 | Outpatient (REF) | payer MEDICARE, MEDICAID ==
[~2018-06-22] MED LIST changes: +BUPR150T3 PO; +BUPR300T34 PO; +BUSP10TA PO; +CLON0.5T8 PO; -DRIS50002 PO; +DRIS50003 PO; +GABA-845 PO; +LAMO200T2 PO; +LATU40TA PO; +LITH300C PO; +METF500T13 PO; -OXCA150T PO; +OXCA150T21 PO; -OXCA300T PO; +OXCA300T14 PO; -PANT40TA2 PO; +PANT40TA3 PO; +PROL60SO SC; +QUET1TAB8 PO; -QUET30XR PO; +QUET400T PO; -ROSU40TA PO; +ROSU40TA3 PO; +ROZE8TAB16 PO; +SERO300T20 PO; +SERT-155 PO; +TERB1CRE12 PR; -TRAZ-136 PO; +TRAZ-163 PO; +TRAZ10TA PO; +VENL75CA2 PO; +VENL75CA47 PO
[2018-06-22 17:57] LABS: BASO # 0.1 10^3/uL (0.0-0.2); BASO % 0.6 % (0.0-1.0); EOS # 0.2 10^3/uL (0.0-0.50); EOS % 2.2 % (0.0-3.0); HEMATOCRIT 41.7 % (36.0-47.0); HEMOGLOBIN 13.2 g/dl (12.0-15.5); LYMPH # 1.7 10^3/uL (1.5-4.5); LYMPH % 21.4 % (24.0-44.0); MEAN CORPUSCULAR HEMOGLOBIN 28.9 pg (27.0-33.0); MEAN CORPUSCULAR HGB CONC 31.7 g/dl (32.0-36.5); MEAN CORPUSCULAR VOLUME 91.4 fl (80.0-96.0); MONO # 0.6 10^3/uL (0.0-0.8); MONO % 7.7 % (0.0-5.0); NEUTROPHILS # 5.3 10^3/uL (1.8-7.7); NEUTROPHILS % 67.5 % (36.0-66.0); PLATELET COUNT, AUTOMATED 331 10^3/uL (150-450); RED BLOOD COUNT 4.56 10^6/uL (4.00-5.40); WHITE BLOOD COUNT 7.8 10^3/uL (4.0-10.0)
[2018-06-22 18:24] LABS: ALBUMIN 4.3 GM/DL (3.2-5.2); ALT/SGPT 26 U/L (12-78); BILIRUBIN,TOTAL 0.5 MG/DL (0.2-1.0); BLOOD UREA NITROGEN 15 MG/DL (7-18); CALCIUM LEVEL 9.5 MG/DL (8.5-10.1); CARBON DIOXIDE LEVEL 28 MEQ/L (21-32); CHLORIDE LEVEL 103 MEQ/L (98-107); CREATININE FOR GFR 0.88 MG/DL (0.55-1.30); FREE T4 0.83 NG/DL (0.76-1.46); GLOMERULAR FILTRATION RATE > 60.0 (>51); GLUCOSE, FASTING 87 MG/DL (70-100); LITHIUM LEVEL 0.81 MEQ/L (0.60-1.20); POTASSIUM SERUM 4.6 MEQ/L (3.5-5.1); PTH INTACT 47.5 PG/ML (18.5-88.0); SODIUM LEVEL 139 MEQ/L (136-145); THYROID STIMULATING HORMONE 0.448 uIU/ML (0.358-3.740); TOTAL 25(OH) VITAMIN D 65.2 NG/ML (30.0-100.0); TOTAL PROTEIN 7.6 GM/DL (6.4-8.2)
[2018-06-22 18:25] LABS: HEMOGLOBIN A1c 5.4 %
== END ==
LOC: M SFHCCLAY 12:25
PROVIDERS: ATTEND Family Medicine
DX: D50.9 Iron deficiency anemia, unspecified (principal); E55.9 Vitamin D deficiency, unspecified; E03.9 Hypothyroidism, unspecified; R73.01 Impaired fasting glucose; F32.9 Major depressive disorder, single episode, unspecified

== ENCOUNTER 2018-08-13 16:41 | Emergency (ER) | payer MEDICARE, MEDICAID ==
[~2018-08-13] VITALS: Ht 160 cm; Wt 81.8 kg
[2018-08-13] MEDS ORDERED: SERT-138 PO (17:51)
[2018-08-13] MEDS ORDERED: ERGO500014 PO (17:51)
[2018-08-13] MEDS ORDERED: LEVO150T7 PO (17:51)
[2018-08-13] MEDS ORDERED: LITH300C PO (17:51)
[2018-08-13] MEDS ORDERED: TRAZ150T90 PO (17:51)
[2018-08-13] MEDS ORDERED: CRES40TA PO (17:51)
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
[2018-08-13 19:02] VITALS: BP 105/58
[2018-08-13] MEDS ORDERED: NAPR-50 PO (19:09)
[2018-08-13] MEDS ORDERED: ROBA500T PO (19:09)
[2018-08-13] MEDS ORDERED: NAPROXEN 250 MG TAB PO ONE (19:15)
[2018-08-13] MEDS ORDERED: METHOCARBAMOL 500 MG TAB PO ONE (19:15)
--- NOTE | 2018-08-15 14:01 | ED PDOC ---
Post-Departure Follow-Up dr herron faxed formal report of ct c spine for fu Sridhar Croft MD Aug 15, 2018 14:01
== END 2018-08-13 19:35 | disposition home or self-care (01) ==
LOC: M ED 16:41
DX: S16.1XXA Strain of muscle, fascia and tendon at neck level, initial encounter (principal); X50.0XXA Overexertion from strenuous movement or load, initial encounter; Y92.094 Garage of other non-institutional residence as the place of occurrence of the external cause; Z87.81 Personal history of (healed) traumatic fracture; E78.00 Pure hypercholesterolemia, unspecified; Z95.0 Presence of cardiac pacemaker; K21.9 Gastro-esophageal reflux disease without esophagitis; Z86.19 Personal history of other infectious and parasitic diseases; E11.9 Type 2 diabetes mellitus without complications; M54.9 Dorsalgia, unspecified; M81.0 Age-related osteoporosis without current pathological fracture; F31.9 Bipolar disorder, unspecified; E03.9 Hypothyroidism, unspecified; F17.200 Nicotine dependence, unspecified, uncomplicated; Z79.899 Other long term (current) drug therapy

== ENCOUNTER → 2018-11-17 | Outpatient (REF) | payer MEDICARE, MEDICAID ==
[~2018-11-17] MED LIST changes: -/PANT40TA; +CALC1TAB8 PO; -CALC600T68 PO; +CRES10TA PO; -CRES10TA32 PO; +CRES40TA PO; +LEVO150T7 PO; +NAPR-837 PO; +PROT1TAB2; -QUET30XR; +ROBA500T PO; +SERO300T PO; +SERO300T20; -SERO300T20 PO; -SERO400T3 PO; +SERO400T4 PO; +SERT-138 PO; +TRAZ150T90 PO; +TRIA0.1C60 TOP; -TRIA1CR TOP; +VITA500045 PO
[2018-11-18 13:08] LABS: BASO % 0.6 % (0.0-1.0); EOS # 0.1 10^3/uL (0.0-0.50); EOS % 1.8 % (0.0-3.0); HEMATOCRIT 41.7 % (36.0-47.0); HEMOGLOBIN 13.4 g/dl (12.0-15.5); LYMPH # 1.5 10^3/uL (1.5-4.5); LYMPH % 22.7 % (24.0-44.0); MEAN CORPUSCULAR HEMOGLOBIN 29.5 pg (27.0-33.0); MEAN CORPUSCULAR HGB CONC 32.1 g/dl (32.0-36.5); MEAN CORPUSCULAR VOLUME 91.6 fl (80.0-96.0); MONO # 0.6 10^3/uL (0.0-0.8); NEUTROPHILS # 4.2 10^3/uL (1.8-7.7); NEUTROPHILS % 64.4 % (36.0-66.0); PLATELET COUNT, AUTOMATED 265 10^3/uL (150-450); RED BLOOD COUNT 4.55 10^6/uL (4.00-5.40); WHITE BLOOD COUNT 6.6 10^3/uL (4.0-10.0)
[2018-11-18 13:31] LABS: ALBUMIN 4.2 GM/DL (3.2-5.2); ALT/SGPT 33 U/L (12-78); BILIRUBIN,TOTAL 0.2 MG/DL (0.2-1.0); BLOOD UREA NITROGEN 23 MG/DL (7-18); CALCIUM LEVEL 9.2 MG/DL (8.5-10.1); CARBON DIOXIDE LEVEL 27 MEQ/L (21-32); CHLORIDE LEVEL 105 MEQ/L (98-107); CREATININE FOR GFR 0.83 MG/DL (0.55-1.30); FREE T4 0.74 NG/DL (0.76-1.46); GLOMERULAR FILTRATION RATE > 60.0 (>51); GLUCOSE, FASTING 94 MG/DL (70-100); POTASSIUM SERUM 4.4 MEQ/L (3.5-5.1); SODIUM LEVEL 139 MEQ/L (136-145); TOTAL PROTEIN 7.2 GM/DL (6.4-8.2)
[2018-11-18 14:09] LABS: HEMOGLOBIN A1c 5.8 %
== END ==
LOC: M SFHCCLAY 14:12
PROVIDERS: ATTEND Family Medicine
DX: D50.9 Iron deficiency anemia, unspecified (principal); R73.01 Impaired fasting glucose; E03.9 Hypothyroidism, unspecified; F32.9 Major depressive disorder, single episode, unspecified

== ENCOUNTER → 2018-11-28 | Outpatient (CLI) | payer MEDICARE, MEDICAID ==
--- NOTE | 2018-11-28 15:31 | REPMRS ---
Patient History The patient states she has not had a clinical breast exam in over a year. Patient is postmenopausal. No known family history of cancer. No Hormone Replacement Therapy [facility] lifetime risk for breast cancer is 5.0%. Digital Woman Screen Mammo: November 28, 2018 - Exam #: [id number] Bilateral CC and MLO view(s) were taken. Technologist: Carole Abraham, Technologist Prior study comparison: November 22, 2017, bilateral digital woman screen mammo performed at [facility]. November 19, 2016, digital woman screen mammo performed at [facility]. FINDINGS: There are scattered fibroglandular densities. There has been no change in the appearance of the mammogram from the prior studies. There is a mild amount of residual fibroglandular tissue which is fairly symmetric. There is no interval development of dominant mass, architectural distortion, or clustered microcalcification suggestive of malignancy. Assessment: BI-RADS/ACR category 1 mammogram. Negative Mammogram. Recommendation Routine screening mammogram in 1 year (for women over age 40). This mammogram was interpreted with the aid of an FDA-approved computer-aided dectection system. Electronically Signed By: Dragan Maldonado MD 11/28/18 [id number]
== END ==
LOC: M WHC 13:05
PROVIDERS: ATTEND Family Medicine
DX: Z12.31 Encounter for screening mammogram for malignant neoplasm of breast (principal); Z78.0 Asymptomatic menopausal state

== ENCOUNTER → 2019-01-09 | Outpatient (CLI) | payer MEDICARE, MEDICAID ==
[~2019-01-09] MED LIST changes: -METH54TA PO; +METH54TA5 PO; -ROSU40TA3 PO; +ROSU40TA4 PO
--- NOTE | 2019-01-10 09:49 | REP ---
CT CERVICAL SPINE: REASON FOR EXAM: Left paresthesias with pain. COMPARISON: CT cervical spine without contrast 08/13/2018 and . TECHNIQUE: CT of the cervical spine was performed without contrast in the axial plane with bone reformatted images in the axial, coronal and sagittal planes. FINDINGS: There is healed fracture deformity of the odontoid, similar to prior. Note is made of healed fracture at the left occipital condyle. There are productive bony changes along the inferior margin of the T1 spinous process, likely related to healing fracture. There are postsurgical changes consistent with C1-C2 posterior hardware fusion with bilateral screws and rods. The pedicle screws at C1 and C2 and posterior fusion rods appear intact. There is a similar loss of cervical lordosis with kyphosis. There is no acute fracture. The spinal canal is within normal limits. There is neural foraminal narrowing at C4-C5 and C5-C6, worse at C5-C6 on the left. A vertical fracture through the left C3 facet remains visible with some evidence of healing. Note is made of small cervical lymph nodes, similar to prior. The thyroid is dimunitive. There is biapical pleuroparenchymal scarring. Note is made of a left-sided anterior chest wall pacer on the fish hatchery inspector view. IMPRESSION: 1. No evidence of acute fracture or subluxation. 2. Posterior cervical fusion at C1-C2 with intact screws and rods. Old healed fracture deformity of the odontoid. 3. Cervical spondylosis with bilateral neural foraminal narrowing at C4-C5 and C5-C6, worse at C5-C6 on the left. Electronically Signed by Fly Young MD 01/11/2019 09:00 A
== END ==
LOC: M RAD 14:27
PROVIDERS: ATTEND Nurse Practitioner Family
DX: R20.2 Paresthesia of skin (principal); Z98.1 Arthrodesis status

== ENCOUNTER → 2019-01-31 | Outpatient (REF) | payer MEDICARE, MEDICAID ==
[2019-01-31 12:58] LABS: HEMATOCRIT 42.9 % (36.0-47.0); HEMOGLOBIN 13.8 g/dl (12.0-15.5); MEAN CORPUSCULAR HEMOGLOBIN 29.6 pg (27.0-33.0); MEAN CORPUSCULAR HGB CONC 32.2 g/dl (32.0-36.5); MEAN CORPUSCULAR VOLUME 92.1 fl (80.0-96.0); PLATELET COUNT, AUTOMATED 258 10^3/uL (150-450); RED BLOOD COUNT 4.66 10^6/uL (4.00-5.40); WHITE BLOOD COUNT 6.8 10^3/uL (4.0-10.0)
[2019-01-31 13:35] LABS: THYROID STIMULATING HORMONE 0.272 uIU/ML (0.358-3.740)
== END ==
LOC: M SFHCPLAZ 10:36
PROVIDERS: ATTEND Nurse Practitioner Family
DX: R53.1 Weakness (principal); E03.9 Hypothyroidism, unspecified

== ENCOUNTER → 2019-02-06 | Outpatient (REF) | payer MEDICARE, MEDICAID | LOC: M SFHCPLAZ 19:27 | PROVIDERS: ATTEND Dermatology | DX: D23.5 Other benign neoplasm of skin of trunk (principal) ==

== ENCOUNTER → 2019-05-11 | Outpatient (REF) | payer MEDICARE, MEDICAID ==
[~2019-05-11] MED LIST changes: +CLON0.5T2 PO; -CLON0.5T8 PO; -LAMO200T2 PO; +LAMO200T3 PO; -OMEP40CA2 PO; +OMEP40CA97 PO; -SERT-155 PO; +SERT50TA29 PO; -SIMV40TA2 PO; +SIMV40TA20 PO
[2019-05-11 15:07] LABS: ALT/SGPT 35 U/L (12-78); BILIRUBIN,TOTAL 0.3 MG/DL (0.2-1.0); BLOOD UREA NITROGEN 14 MG/DL (7-18); CALCIUM LEVEL 9.9 MG/DL (8.5-10.1); CARBON DIOXIDE LEVEL 29 MEQ/L (21-32); CHLORIDE LEVEL 103 MEQ/L (98-107); CREATININE FOR GFR 0.84 MG/DL (0.55-1.30); FREE T4 0.93 NG/DL (0.76-1.46); GLOMERULAR FILTRATION RATE > 60.0 (>51); GLUCOSE, FASTING 85 MG/DL (70-100); POTASSIUM SERUM 4.6 MEQ/L (3.5-5.1); PTH INTACT 42.5 PG/ML (18.5-88.0); SODIUM LEVEL 141 MEQ/L (136-145); TOTAL 25(OH) VITAMIN D 54.4 NG/ML (30.0-100.0); TOTAL PROTEIN 7.4 GM/DL (6.4-8.2)
[2019-05-11 15:24] LABS: HEMOGLOBIN A1c 5.9 %
== END ==
LOC: M SFHCPLAZ 13:20
PROVIDERS: ATTEND Family Medicine
DX: E55.9 Vitamin D deficiency, unspecified (principal); E03.9 Hypothyroidism, unspecified; R73.01 Impaired fasting glucose
CPT/HCPCS: 36415; 80053; 82306; 83036; 83970; 84439; 84443; G0463

== ENCOUNTER → 2019-07-25 | Outpatient (REF) | payer MEDICARE, MEDICAID ==
[~2019-07-25] MED LIST changes: -BUPR300T34 PO; +BUPR300T92 PO; +QUET100T2 PO; -QUET1TAB8 PO; -TRAZ-163 PO; +TRAZ-257 PO; -TRAZ10TA PO; +TRAZ1TAB12 PO
[2019-07-25 17:21] LABS: BLOOD UREA NITROGEN 18 MG/DL (7-18); CALCIUM LEVEL 9.9 MG/DL (8.5-10.1); CARBON DIOXIDE LEVEL 29 MEQ/L (21-32); CHLORIDE LEVEL 105 MEQ/L (98-107); CREATININE FOR GFR 0.87 MG/DL (0.55-1.30); GLOMERULAR FILTRATION RATE > 60.0 (>51); GLUCOSE, FASTING 93 MG/DL (70-100); NT-PRO BNP 28 PG/ML (<125); POTASSIUM SERUM 4.1 MEQ/L (3.5-5.1); SODIUM LEVEL 139 MEQ/L (136-145)
== END ==
LOC: M LABDRWCV 15:58 → M LABDRAWC 15:58
PROVIDERS: ATTEND Internal Medicine Cardiovascular Disease
DX: I50.32 Chronic diastolic (congestive) heart failure (principal); I50.9 Heart failure, unspecified; I48.91 Unspecified atrial fibrillation

== ENCOUNTER → 2019-08-17 | Outpatient (REF) | payer MEDICARE, MEDICAID ==
[~2019-08-17] MED LIST changes: +EQ A1CRE3 PR; -TERB1CRE12 PR
== END ==
LOC: M LAB REF 13:18
PROVIDERS: ATTEND Nurse Practitioner Family
DX: R05 Cough (principal); R50.9 Fever, unspecified

== ENCOUNTER → 2019-08-17 | Outpatient (CLI) | payer MEDICARE, MEDICAID ==
--- NOTE | 2019-08-17 13:04 | REPPI ---
Chest x-ray: Two views. History: Cough. Findings: A bipolar pacemaker is seen in place via the left side. The lungs are well inflated and free of infiltrate. Heart is mildly enlarged. Pulmonary vasculature is not increased. There is very slight blunting of the posterior pleural angles on the lateral radiograph. The patient is status post cervical spine fusion of the posterior elements. No acute bony abnormality is seen. Impression: Mildly prominent heart with pacemaker. Very slight blunting of the posterior pleural angles. No infiltrate seen. Electronically Signed by Juan Carlos Gan MD 08/17/2019 12:55 P
[2019-08-17 13:56] LABS: BASO % 0.3 % (0.0-1.0); EOS # 0.1 10^3/uL (0.0-0.5); EOS % 0.7 % (0.0-3.0); HEMATOCRIT 41.7 % (36.0-47.0); HEMOGLOBIN 13.3 g/dl (12.0-15.5); LYMPH # 0.6 10^3/uL (1.5-5.0); LYMPH % 8.2 % (24.0-44.0); MEAN CORPUSCULAR HEMOGLOBIN 28.7 pg (27.0-33.0); MEAN CORPUSCULAR HGB CONC 31.9 g/dl (32.0-36.5); MEAN CORPUSCULAR VOLUME 90.1 fl (80.0-96.0); MONO # 0.6 10^3/uL (0.0-0.8); MONO % 8.4 % (0.0-5.0); NEUTROPHILS # 5.7 10^3/uL (1.5-8.5); NEUTROPHILS % 81.7 % (36.0-66.0); PLATELET COUNT, AUTOMATED 257 10^3/uL (150-450); RED BLOOD COUNT 4.63 10^6/uL (4.00-5.40); WHITE BLOOD COUNT 6.9 10^3/uL (4.0-10.0)
== END ==
LOC: M PLAIMG 12:22
PROVIDERS: ATTEND Nurse Practitioner Family
DX: R05 Cough (principal); Z95.0 Presence of cardiac pacemaker

== ENCOUNTER → 2019-09-28 | Outpatient (REF) | payer MEDICARE, MEDICAID ==
[~2019-09-28] MED LIST changes: -PARO30TA PO; +PARO30TA65 PO
[2019-09-28 14:40] LABS: BASO # 0.1 10^3/uL (0.0-0.2); BASO % 0.8 % (0.0-1.0); EOS # 0.1 10^3/uL (0.0-0.5); EOS % 1.5 % (0.0-3.0); HEMATOCRIT 42.1 % (36.0-47.0); HEMOGLOBIN 13.5 g/dl (12.0-15.5); LYMPH # 2.2 10^3/uL (1.5-5.0); LYMPH % 29.3 % (24.0-44.0); MEAN CORPUSCULAR HEMOGLOBIN 28.6 pg (27.0-33.0); MEAN CORPUSCULAR HGB CONC 32.1 g/dl (32.0-36.5); MEAN CORPUSCULAR VOLUME 89.2 fl (80.0-96.0); MONO # 0.7 10^3/uL (0.0-0.8); MONO % 9.4 % (0.0-5.0); NEUTROPHILS # 4.4 10^3/uL (1.5-8.5); NEUTROPHILS % 58.6 % (36.0-66.0); PLATELET COUNT, AUTOMATED 293 10^3/uL (150-450); RED BLOOD COUNT 4.72 10^6/uL (4.00-5.40); WHITE BLOOD COUNT 7.5 10^3/uL (4.0-10.0)
[2019-09-28 14:48] LABS: ALBUMIN 4.3 GM/DL (3.2-5.2); ALT/SGPT 37 U/L (12-78); BILIRUBIN,TOTAL 0.3 MG/DL (0.2-1.0); BLOOD UREA NITROGEN 14 MG/DL (7-18); CALCIUM LEVEL 9.5 MG/DL (8.5-10.1); CARBON DIOXIDE LEVEL 27 MEQ/L (21-32); CHLORIDE LEVEL 105 MEQ/L (98-107); CHOLESTEROL LEVEL 160 MG/DL (<200); CHOLESTEROL RISK RATIO 3.018 (<5); CREATININE FOR GFR 0.96 MG/DL (0.55-1.30); GLOMERULAR FILTRATION RATE > 60.0 (>51); GLUCOSE, FASTING 90 MG/DL (70-100); HDL CHOLESTEROL 53 MG/DL (>40); LDL CHOLESTEROL 75 MG/DL (<100); LITHIUM LEVEL 0.58 MEQ/L (0.60-1.20); NON-HDL-C 107 MG/DL; POTASSIUM SERUM 4.6 MEQ/L (3.5-5.1); SODIUM LEVEL 139 MEQ/L (136-145); TOTAL PROTEIN 7.7 GM/DL (6.4-8.2); TRIGLYCERIDES LEVEL 158 MG/DL (<150); VITAMIN B12 LEVEL 346 PG/ML (247-911)
[2019-10-04 00:09] LABS: FREE T4 BY DIALYSIS DIRECT 1.2 ng/dL (.); INSULIN LEVEL 21.5 uIU/mL (2.6-24.9)
== END ==
LOC: M SFHCPLAZ 12:11
PROVIDERS: ATTEND Family Medicine
DX: E03.9 Hypothyroidism, unspecified (principal); D50.9 Iron deficiency anemia, unspecified; R73.01 Impaired fasting glucose; F32.9 Major depressive disorder, single episode, unspecified; E53.8 Deficiency of other specified B group vitamins; M81.0 Age-related osteoporosis without current pathological fracture
CPT/HCPCS: 36415; 80053; 80061; 80178; 82607; 83525; 84439; 84443; 85025; 85046; 96372; G0463; J0897

== ENCOUNTER → 2020-01-24 | Outpatient (REF) | payer MEDICARE, MEDICAID ==
[~2020-01-24] MED LIST changes: +PANT40TA29 PO; -PANT40TA3 PO
[2020-01-24 16:52] LABS: HEMATOCRIT 43.2 % (36.0-47.0); MEAN CORPUSCULAR HEMOGLOBIN 28.7 pg (27.0-33.0); MEAN CORPUSCULAR HGB CONC 32.4 g/dl (32.0-36.5); MEAN CORPUSCULAR VOLUME 88.7 fl (80.0-96.0); PLATELET COUNT, AUTOMATED 330 10^3/uL (150-450); RED BLOOD COUNT 4.87 10^6/uL (4.00-5.40); WHITE BLOOD COUNT 7.5 10^3/uL (4.0-10.0)
[2020-01-24 17:30] LABS: ALBUMIN 4.2 GM/DL (3.2-5.2); ALT/SGPT 35 U/L (12-78); BILIRUBIN,TOTAL 0.3 MG/DL (0.2-1.0); BLOOD UREA NITROGEN 11 MG/DL (7-18); CALCIUM LEVEL 9.2 MG/DL (8.5-10.1); CARBON DIOXIDE LEVEL 26 MEQ/L (21-32); CHLORIDE LEVEL 107 MEQ/L (98-107); CREATININE FOR GFR 0.92 MG/DL (0.55-1.30); FREE T4 1.03 NG/DL (0.76-1.46); GLOMERULAR FILTRATION RATE > 60.0 (>51); GLUCOSE, FASTING 75 MG/DL (70-100); POTASSIUM SERUM 4.8 MEQ/L (3.5-5.1); SODIUM LEVEL 139 MEQ/L (136-145); THYROID STIMULATING HORMONE 0.482 uIU/ML (0.358-3.740); TOTAL PROTEIN 7.4 GM/DL (6.4-8.2)
[2020-01-24 17:31] LABS: PTH INTACT 86.8 PG/ML (18.5-88.0)
[2020-01-24 18:11] LABS: HEPATITIS C VIRUS ABY INDEX 0.2 INDEX (<0.8)
[2020-01-27 18:10] LABS: D001-IgE D pteronyssinus <0.10 kU/L (Class 0); E001-IgE Cat Epith/Dander < 0.10 kU/L (Class 0); E005-IgE Dog Dander < 0.10 kU/L (Class 0); G002-IgE Bermuda Grass < 0.10 kU/L (Class 0); G008-IgE Kentucky Bluegrass < 0.10 kU/L (Class 0); M001-IgE Penicillium chrysogen < 0.10 kU/L (Class 0); M002 IgE Cladosporium herbaru < 0.10 kU/L (Class 0); M003 IgE Aspergillus fumigatu < 0.10 kU/L (Class 0); M006-IgE Alternaria alternata < 0.10 kU/L (Class 0); T001-IgE Maple/Box Elder < 0.10 kU/L (Class 0); T003-IgE Common Silver Birch < 0.10 kU/L (Class 0); T006-IgE Cedar, Mountain < 0.10 kU/L (Class 0); T007-IgE Oak, White < 0.10 kU/L (Class 0); T008-IgE Elm, American < 0.10 kU/L (Class 0); T015-IgE Ash, White < 0.10 kU/L (Class 0); T041-IgE Hickory, White < 0.10 kU/L (Class 0); T070-IgE White Mulberry < 0.10 kU/L (Class 0); W001-IgE Ragweed, Short < 0.10 kU/L (Class 0); W009-IgE Plantain, English < 0.10 kU/L (Class 0); W014-IgE Pigweed, Rough < 0.10 kU/L (Class 0); W018-IgE Sheep Sorrel < 0.10 kU/L (Class 0)
== END ==
LOC: M LABDRAWC 13:30
PROVIDERS: ATTEND Family Medicine
DX: R05 Cough (principal); M81.0 Age-related osteoporosis without current pathological fracture; R20.3 Hyperesthesia; Z91.09 Other allergy status, other than to drugs and biological substances

== ENCOUNTER → 2020-02-14 | Outpatient (CLI) | payer MEDICARE, MEDICAID ==
--- NOTE | 2020-02-14 15:39 | REPMRS ---
Patient History The patient states she has not had a clinical breast exam in over a year. No known family history of cancer. No Hormone Replacement Therapy Digital Woman Screen Mammo: February 14, 2020 - Exam #: [id number] Bilateral CC and MLO view(s) were taken. Technologist: Keke Avendano, Technologist Prior study comparison: November 28, 2018, bilateral digital woman screen mammo performed at [facility]. November 22, 2017, bilateral digital woman screen mammo performed at [facility]. November 19, 2016, digital woman screen mammo performed at [facility]. FINDINGS: There are scattered fibroglandular densities. The [place] volumetric breast density category is:B. There has been no change in the appearance of the mammogram from the prior studies. There is a mild amount of scattered fibroglandular density which is fairly symmetric. There is no interval development of dominant mass, architectural distortion, or grouped microcalcification suggestive of malignancy. Assessment: BI-RADS/ACR category 1 mammogram. Negative Mammogram. Recommendation Routine screening mammogram of both breasts in 1 year (for women over age 40). This patient's Lifetime Breast Cancer Risk is estimated at 4.8 %. This mammogram was interpreted with the aid of an FDA-approved computer-aided dectection system. Electronically Signed By: Sushant Gan MD 02/14/20 [id number]
== END ==
LOC: M WHC 11:10
PROVIDERS: ATTEND Family Medicine
DX: Z12.31 Encounter for screening mammogram for malignant neoplasm of breast (principal)
CPT/HCPCS: 17000; 77063; 77067; G0463

== ENCOUNTER → 2020-05-10 | Outpatient (CLI) | payer MEDICARE, MEDICAID ==
--- NOTE | 2020-05-10 11:25 | REPPI ---
INDICATION: M25.511 ARTHRALGIA OF RIGHT SHOULDER REGION. COMPARISON: None. TECHNIQUE: Three plain film views of the right shoulder. FINDINGS: There is no fracture or dislocation. The acromioclavicular and glenohumeral articulations are unremarkable. There are no calcifications. IMPRESSION: Negative plain film study of the right shoulder. <Electronically signed by Dragan Davila > 05/10/20 [id number]
== END ==
LOC: M PLAIMG 09:54
PROVIDERS: ATTEND Physician Assistant Medical
DX: M25.511 Pain in right shoulder (principal)
CPT/HCPCS: 73030; G0463

== ENCOUNTER → 2020-05-27 | Outpatient (CLI) | payer MEDICARE, MEDICAID ==
--- NOTE | 2020-05-27 13:13 | REP ---
INDICATION: ENCOUNTER FOR SCREENING FOR LUNG CANCER COMPARISON: None. TECHNIQUE: Axial noncontrast images from the thoracic inlet to the upper abdomen using low-dose lung screening technique (LDCT). FINDINGS: Lung sy are well aerated with minimal subpleural scarring noted. No consolidation or suspicious nodule/mass. No effusion. No pneumothorax. Tracheobronchial tree is patent. IMPRESSION: Lung-RADS category 1. Management recommendations include annual low-dose CT surveillance. <Electronically signed by Parker Marr > 05/27/20 [id number]
== END ==
LOC: M RAD 12:49
PROVIDERS: ATTEND Physician Assistant Medical
DX: Z12.2 Encounter for screening for malignant neoplasm of respiratory organs (principal); Z87.891 Personal history of nicotine dependence

== ENCOUNTER → 2020-06-07 | Outpatient (REF) | payer MEDICARE, MEDICAID ==
[~2020-06-07] MED LIST changes: -BUPR150T3 PO; +BUPR150T4 PO
== END ==
LOC: M SFHCPLAZ 17:03
PROVIDERS: ATTEND Physician Assistant
DX: R39.15 Urgency of urination (principal); J02.9 Acute pharyngitis, unspecified; Z20.822 Contact with and (suspected) exposure to COVID-19
CPT/HCPCS: 81002; 87086; U0003

== ENCOUNTER → 2020-06-28 | Outpatient (REF) | payer MEDICARE, MEDICAID | LOC: M SMT 13:16 | PROVIDERS: ATTEND Urology | DX: N39.42 Incontinence without sensory awareness (principal) | CPT/HCPCS: 87086; G0463 ==

== ENCOUNTER → 2020-07-08 | Outpatient (REF) | payer MEDICARE, MEDICAID ==
[2020-07-08 14:43] LABS: BASO % 0.5 % (0.0-1.0); EOS # 0.1 10^3/uL (0.0-0.5); EOS % 1.2 % (0.0-3.0); HEMATOCRIT 43.9 % (36.0-47.0); HEMOGLOBIN 13.8 g/dl (12.0-15.5); LYMPH # 2.3 10^3/uL (1.5-5.0); LYMPH % 27.3 % (24.0-44.0); MEAN CORPUSCULAR HEMOGLOBIN 28.8 pg (27.0-33.0); MEAN CORPUSCULAR HGB CONC 31.4 g/dl (32.0-36.5); MEAN CORPUSCULAR VOLUME 91.6 fl (80.0-96.0); MONO # 0.8 10^3/uL (0.0-0.8); MONO % 9.5 % (0.0-5.0); NEUTROPHILS % 60.8 % (36.0-66.0); PLATELET COUNT, AUTOMATED 316 10^3/uL (150-450); RED BLOOD COUNT 4.79 10^6/uL (4.00-5.40); WHITE BLOOD COUNT 8.2 10^3/uL (4.0-10.0)
[2020-07-08 15:21] LABS: ALBUMIN 4.3 GM/DL (3.2-5.2); ALT/SGPT 36 U/L (12-78); BILIRUBIN,TOTAL 0.4 MG/DL (0.2-1.0); BLOOD UREA NITROGEN 18 MG/DL (7-18); C REACTIVE PROTEIN QUANTITATIV 0.31 MG/DL (0.00-0.30); CALCIUM LEVEL 10.2 MG/DL (8.5-10.1); CARBON DIOXIDE LEVEL 30 MEQ/L (21-32); CHLORIDE LEVEL 103 MEQ/L (98-107); CHOLESTEROL LEVEL 185 MG/DL (<200); CHOLESTEROL RISK RATIO 3.557 (<5); CPK CREATINE PHOSPHOKINASE 62 U/L (26-192); CREATININE FOR GFR 0.91 MG/DL (0.55-1.30); GLOMERULAR FILTRATION RATE > 60.0 (>51); GLUCOSE, FASTING 93 MG/DL (70-100); HDL CHOLESTEROL 52 MG/DL (>40); LDL CHOLESTEROL 96 MG/DL (<100); NON-HDL-C 133 MG/DL; POTASSIUM SERUM 4.6 MEQ/L (3.5-5.1); SODIUM LEVEL 139 MEQ/L (136-145); TOTAL PROTEIN 7.5 GM/DL (6.4-8.2); TRIGLYCERIDES LEVEL 187 MG/DL (<150); VITAMIN B12 LEVEL 672 PG/ML (247-911)
[2020-07-08 19:46] LABS: HEMOGLOBIN A1c 5.4 %
== END ==
LOC: M PLALAB 10:56
PROVIDERS: ATTEND Family Medicine
DX: E03.9 Hypothyroidism, unspecified (principal); E53.8 Deficiency of other specified B group vitamins; R73.01 Impaired fasting glucose

== ENCOUNTER → 2020-08-19 | Outpatient (CLI) | payer MEDICARE, MEDICAID ==
[~2020-08-19] MED LIST changes: +BUPR150T12 PO; -BUPR150T4 PO
--- NOTE | 2020-08-19 13:21 | REPPI ---
INDICATION: PRIMARY OSTEOARTHRITIS. COMPARISON: Comparison right knee radiographs are from October 19, 2006.. TECHNIQUE: 6 views are provided. FINDINGS: Six views of the right knee demonstrate non articular spurring on the superior pole of the patella which is more pronounced but not new when compared with the 2006 prior study. There is also mild articular spurring at the superior inferior pole of patella on the lateral radiograph. Bones, joints and soft tissues are otherwise unremarkable.. No fracture or subluxation is seen. No opaque foreign body noted. IMPRESSION: Osteoarthritic and tendon insertion site spurring on the patella. No acute bony abnormality.. <Electronically signed by Sushant Gan > 08/19/20 [id number]
== END ==
LOC: M PLAIMG 10:30
PROVIDERS: ATTEND Family Medicine
DX: M17.0 Bilateral primary osteoarthritis of knee (principal)
CPT/HCPCS: 20610; 73564; G0463; J3301

== ENCOUNTER → 2020-09-20 | Outpatient (REF) | payer MEDICARE, MEDICAID ==
[2020-09-20 16:49] LABS: ALBUMIN 4.2 GM/DL (3.2-5.2); ALT/SGPT 28 U/L (12-78); BILIRUBIN,TOTAL 0.4 MG/DL (0.2-1.0); BLOOD UREA NITROGEN 22 MG/DL (7-18); CALCIUM LEVEL 10.3 MG/DL (8.5-10.1); CARBON DIOXIDE LEVEL 31 MEQ/L (21-32); CHLORIDE LEVEL 103 MEQ/L (98-107); CREATININE FOR GFR 0.86 MG/DL (0.55-1.30); FREE T4 0.99 NG/DL (0.76-1.46); GLOMERULAR FILTRATION RATE > 60.0 (>51); GLUCOSE, FASTING 69 MG/DL (70-100); POTASSIUM SERUM 4.6 MEQ/L (3.5-5.1); SODIUM LEVEL 137 MEQ/L (136-145); THYROID STIMULATING HORMONE 0.784 uIU/ML (0.358-3.740); TOTAL PROTEIN 7.7 GM/DL (6.4-8.2)
[2020-09-20 16:50] LABS: TOTAL 25(OH) VITAMIN D 62.5 NG/ML (30.0-100.0)
[2020-09-20 16:51] LABS: PTH INTACT 40.1 PG/ML (18.5-88.0)
[2020-09-20 17:10] LABS: HEMOGLOBIN A1c 5.4 %
[2020-09-23 14:08] LABS: INSULIN LEVEL 15.1 uIU/mL (2.6-24.9); TISSUE TRANSGLUTAMINASE IgA <2 U/mL (0-3)
== END ==
LOC: M SFHCCLAY 11:46
PROVIDERS: ATTEND Family Medicine
DX: M81.0 Age-related osteoporosis without current pathological fracture (principal); E03.9 Hypothyroidism, unspecified

== ENCOUNTER → 2021-04-03 | Outpatient (CLI) | payer MEDICARE, MEDICAID ==
[~2021-04-03] MED LIST changes: +GABA-283 PO; -GABA-845 PO; +OLAN1TAB16 PO; -OLAN5TAB PO; +OMEP40CA4 PO; -OMEP40CA97 PO; -QUET400T PO; +QUET400T2 PO
[2021-04-03 14:21] LABS: APPEARANCE, URINE CLEAR (CLEAR); BACTERIA, URINE AUTO 1+ (NEGATIVE); BILIRUBIN, URINE AUTO NEGATIVE (NEGATIVE); BLOOD, URINE BLOOD 3+ (NEGATIVE); COLOR, URINE YELLOW (YELLOW); GLUCOSE, URINE (UA) AUTO NEGATIVE (NEGATIVE); KETONE, URINE AUTO NEGATIVE (NEGATIVE); LEUKOCYTE ESTERASE, URINE AUTO 3+ (NEGATIVE); MUCUS, URINE SMALL (NEGATIVE); NITRITE, URINE AUTO NEGATIVE (NEGATIVE); PROTEIN, URINE AUTO NEGATIVE (NEGATIVE); RBC, URINE AUTO 1 /HPF (0-3); SPECIFIC GRAVITY URINE AUTO 1.004 (1.002-1.035); SQUAMOUS EPITHELIAL CELL UR AU 0 /HPF (0-6); UROBILINOGEN, URINE AUTO 0.2 mg/dL (0.0-2.0); WBC, URINE AUTO 20 /HPF (0-3)
[2021-04-03 15:39] LABS: BASO # 0.1 10^3/uL (0.0-0.2); BASO % 0.6 % (0.0-1.0); EOS # 0.1 10^3/uL (0.0-0.5); HEMATOCRIT 41.9 % (36.0-47.0); HEMOGLOBIN 13.2 g/dl (12.0-15.5); LYMPH # 2.1 10^3/uL (1.5-5.0); LYMPH % 19.8 % (24.0-44.0); MEAN CORPUSCULAR HEMOGLOBIN 28.3 pg (27.0-33.0); MEAN CORPUSCULAR HGB CONC 31.5 g/dl (32.0-36.5); MEAN CORPUSCULAR VOLUME 89.7 fl (80.0-96.0); MONO # 0.9 10^3/uL (0.0-0.8); NEUTROPHILS # 7.3 10^3/uL (1.5-8.5); PLATELET COUNT, AUTOMATED 326 10^3/uL (150-450); RED BLOOD COUNT 4.67 10^6/uL (4.00-5.40); WHITE BLOOD COUNT 10.5 10^3/uL (4.0-10.0)
[2021-04-03 15:48] LABS: HEMOGLOBIN A1c 5.4 %
[2021-04-03 15:58] LABS: BLOOD UREA NITROGEN 15 MG/DL (7-18); CALCIUM LEVEL 10.4 MG/DL (8.8-10.2); CARBON DIOXIDE LEVEL 30 MEQ/L (21-32); CHLORIDE LEVEL 103 MEQ/L (98-107); CHOLESTEROL LEVEL 148 MG/DL (<200); CHOLESTEROL RISK RATIO 2.792 (<5); CREATININE FOR GFR 0.84 MG/DL (0.55-1.30); FERRITIN 140 NG/ML (8-252); GLOMERULAR FILTRATION RATE > 60.0 (>45); GLUCOSE, FASTING 92 MG/DL (70-100); HDL CHOLESTEROL 53 MG/DL (>40); LDL CHOLESTEROL 65 MG/DL (<100); NON-HDL-C 95 MG/DL; PHOSPHORUS LEVEL 4.6 MG/DL (2.5-4.9); SODIUM LEVEL 139 MEQ/L (136-145); TRIGLYCERIDES LEVEL 149 MG/DL (<150)
[2021-04-03 16:02] LABS: PTH INTACT 34.1 PG/ML (18.5-88.0); TOTAL 25(OH) VITAMIN D 68.7 NG/ML (30.0-100.0)
[2021-04-03 16:03] LABS: VITAMIN B12 LEVEL 468 PG/ML (247-911)
== END ==
LOC: M PLALAB 12:01
PROVIDERS: ATTEND Family Medicine
DX: N39.0 Urinary tract infection, site not specified (principal); D50.9 Iron deficiency anemia, unspecified; E55.9 Vitamin D deficiency, unspecified; E78.2 Mixed hyperlipidemia; R73.01 Impaired fasting glucose; E53.8 Deficiency of other specified B group vitamins; M81.0 Age-related osteoporosis without current pathological fracture
CPT/HCPCS: 36415; 80061; 80069; 81001; 82306; 82607; 82728; 83036; 83525; 83970; 85025; 87088; 87186; 96372; G0463; J0897

== ENCOUNTER → 2021-04-18 | Outpatient (REF) | payer MEDICARE, MEDICAID | LOC: M SFHCPLAZ 13:43 | PROVIDERS: ATTEND Family Medicine | DX: E55.9 Vitamin D deficiency, unspecified (principal); Z53.8 Procedure and treatment not carried out for other reasons ==

== ENCOUNTER → 2021-04-21 | Outpatient (REF) | payer MEDICARE, MEDICAID ==
[2021-04-21 16:00] LABS: APPEARANCE, URINE HAZY (CLEAR); BACTERIA, URINE AUTO NEGATIVE (NEGATIVE); BILIRUBIN, URINE AUTO NEGATIVE (NEGATIVE); BLOOD, URINE BLOOD NEGATIVE (NEGATIVE); COLOR, URINE YELLOW (YELLOW); GLUCOSE, URINE (UA) AUTO NEGATIVE (NEGATIVE); KETONE, URINE AUTO NEGATIVE (NEGATIVE); LEUKOCYTE ESTERASE, URINE AUTO NEGATIVE (NEGATIVE); MUCUS, URINE SMALL (NEGATIVE); NITRITE, URINE AUTO NEGATIVE (NEGATIVE); PROTEIN, URINE AUTO NEGATIVE (NEGATIVE); RBC, URINE AUTO 0 /HPF (0-3); SPECIFIC GRAVITY URINE AUTO 1.014 (1.002-1.035); SQUAMOUS EPITHELIAL CELL UR AU 2 /HPF (0-6); WBC, URINE AUTO 1 /HPF (0-3)
[2021-04-22 16:26] LABS: ALBUMIN 3.9 GM/DL (3.2-5.2); BLOOD UREA NITROGEN 17 MG/DL (7-18); CALCIUM LEVEL 9.6 MG/DL (8.8-10.2); CARBON DIOXIDE LEVEL 29 MEQ/L (21-32); CHLORIDE LEVEL 107 MEQ/L (98-107); CREATININE FOR GFR 0.83 MG/DL (0.55-1.30); GLOMERULAR FILTRATION RATE > 60.0 (>45); GLUCOSE, FASTING 86 MG/DL (70-100); PHOSPHORUS LEVEL 4.1 MG/DL (2.5-4.9); POTASSIUM SERUM 4.6 MEQ/L (3.5-5.1); SODIUM LEVEL 141 MEQ/L (136-145); TOTAL PROTEIN 7.1 GM/DL (6.4-8.2)
[2021-04-22 16:57] LABS: PTH INTACT 49.9 PG/ML (18.5-88.0); TOTAL 25(OH) VITAMIN D 56.7 NG/ML (30.0-100.0)
[2021-04-23 12:48] LABS: ALBUMIN % 57.2 % (55.8-66.1); ALPHA-1-GLOBULIN % 5.3 % (2.9-4.9); BETA-1-GLOBULINS % 6.7 % (4.7-7.2)
[2021-04-23 12:49] LABS: ALBUMIN 4.06 GM/DL (3.29-5.55); ALPHA-1-GLOBULINS 0.38 GM/DL (0.17-0.41); ALPHA-2-GLOBULINS 0.92 GM/DL (0.42-0.99); BETA-1-GLOBULINS 0.48 GM/DL (0.28-0.60); BETA-2-GLOBULINS 0.48 GM/DL (0.19-0.55); BETA-2-GLOBULINS % 6.8 % (3.2-6.5); GAMMA GLOBULINS 0.78 GM/DL (0.65-1.58)
== END ==
LOC: M SFHCPLAZ 10:36
PROVIDERS: ATTEND Family Medicine
DX: N39.0 Urinary tract infection, site not specified (principal); E55.9 Vitamin D deficiency, unspecified

== ENCOUNTER → 2021-04-30 | Outpatient (CLI) | payer MEDICARE, MEDICAID ==
[~2021-04-30] MED LIST changes: -CALC1TAB8 PO; +CALC600T67 PO; -LATU40TA PO; +LATU40TA2 PO
== END ==
LOC: M WHC 14:05
PROVIDERS: ATTEND Family Medicine
DX: Z12.31 Encounter for screening mammogram for malignant neoplasm of breast (principal); M81.0 Age-related osteoporosis without current pathological fracture; M85.88 Other specified disorders of bone density and structure, other site; R92.1 Mammographic calcification found on diagnostic imaging of breast

== ENCOUNTER 2021-05-08 12:20 | Outpatient (CLI) | payer MEDICARE, MEDICAID ==
[~2021-05-08] VITALS: Ht 160 cm; Wt 82.7 kg
[2021-05-08 13:04] VITALS: BP 107/69
[2021-05-08] MEDS ORDERED: ZOLEDRONIC ACID 5 MG in IV 1 EA IV ONE (13:30)
[2021-05-08 13:52] VITALS: BP 118/67
== END 2021-05-08 14:00 | disposition home or self-care (01) ==
LOC: M INFU 12:20
PROVIDERS: ATTEND Family Medicine
DX: M81.0 Age-related osteoporosis without current pathological fracture (principal)
CPT/HCPCS: 96365; J3489

== ENCOUNTER → 2021-05-12 | Outpatient (CLI) | payer MEDICARE, MEDICAID ==
[~2021-05-12] MED LIST changes: +CALC1TAB8 PO; -CALC600T67 PO; +LATU40TA PO; -LATU40TA2 PO
--- NOTE | 2021-05-14 10:25 | REPVR ---
PROCEDURE INFORMATION: Exam: CT Cervical Spine Without Contrast Exam date and time: 05/12/2021 11:48 AM Age: 60 years old Clinical indication: Neck pain; Prior surgery; Surgery date: 6+ months; Additional info: Cervicalgia TECHNIQUE: Imaging protocol: Computed tomography images of the cervical spine without contrast. Radiation optimization: All CT scans at this facility use at least one of these dose optimization techniques: automated exposure control; mA and/or kV adjustment per patient size (includes targeted exams where dose is matched to clinical indication); or iterative reconstruction. COMPARISON: CT Spine,cervical w/o contrast 01/09/2019 2:41 PM FINDINGS: Vertebrae: Exaggeration of the lower cervical lordosis. 2 mm of anterolisthesis of C2 on C3. Trace 1-2 mm of degenerative retrolisthesis of C4 on C5 has developed since the prior study. No acute fracture seen. 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 A healed dens fracture as well as old T1, T2 and T3 spinous process fractures. Mild, chronic T2 superior endplate compression is unchanged. Surgical fixation at C1-C2, as before. The hardware is intact and in place. Moderate to severe degenerative changes again demonstrated at C1-C2. Mild posterior disc height loss with endplate osteophytic ridging at C4-C5 and C5-C6 is similar to prior. C2-C3: No significant disc protrusion. No severe spinal canal stenosis. No significant neural foraminal narrowing. C3-C4: No significant disc protrusion. No severe spinal canal stenosis. No significant neural foraminal narrowing. C4-C5: Slight retrolisthesis has developed. Otherwise similar appearance of mild disc osteophyte complexes does not contribute to central spinal canal stenosis. Uncovertebral and facet arthropathy causing [id number] right and mild left neural foraminal stenoses. C5-C6: No significant interval change. Mild disc osteophyte complex and ligamentum flavum buckling. The central spinal canal remains patent. Uncovertebral and facet arthropathy causing severe left and mild right neural foraminal stenoses, as before. C6-C7: No significant disc protrusion. No severe spinal canal stenosis. No significant neural foraminal narrowing. C7-T1: No significant disc protrusion. No severe spinal canal stenosis. No significant neural foraminal narrowing. Soft tissues: Unremarkable. Thyroid: The thyroid gland is atrophic. Vasculature: Mild calcified atherosclerotic plaque at the carotid bifurcations. Lungs: There are subpleural blebs in the lung apices. IMPRESSION: 1. Slight retrolisthesis of C4 on C5 has developed. 2. Otherwise no significant interval change. 3. Severe left neural foraminal stenosis is again demonstrated at C5-C6. Electronically signed by: Carole Omalley On 05/14/2021 10:25:24 AM
== END ==
LOC: M PLAIMG 11:23
PROVIDERS: ATTEND Physical Medicine & Rehabilitation
DX: M43.12 Spondylolisthesis, cervical region (principal); M54.2 Cervicalgia

== ENCOUNTER → 2021-06-04 | Outpatient (CLI) | payer MEDICARE, MEDICAID ==
--- NOTE | 2021-06-04 10:55 | REP ---
INDICATION: SMOKER. COMPARISON: 05/27/2020 also low-dose screening CT of the lungs TECHNIQUE: Axial noncontrast images from the thoracic inlet to the upper abdomen using low-dose lung screening technique (LDCT). As per the protocol only lung window imaging was sent to the read station for interpretation. FINDINGS: The lung sy are stable. There are no new abnormal nodules, masses, or opacities. Grossly, the mediastinum and pulmonary leo are stable. Grossly, the imaged upper abdomen and imaged osseous structures are stable. IMPRESSION: Stable lung rads category 1 low-dose screening CT of the lungs. Follow-up as per the revised Fleischner society criteria. <Electronically signed by Elmo Hirsch > 06/04/21 [id number]
== END ==
LOC: M RAD 10:02
PROVIDERS: ATTEND Family Medicine
DX: Z12.2 Encounter for screening for malignant neoplasm of respiratory organs (principal); Z87.891 Personal history of nicotine dependence

== ENCOUNTER → 2021-08-21 | Outpatient (REF) | payer MEDICARE, MEDICAID ==
[~2021-08-21] MED LIST changes: -CALC1TAB8 PO; +CALC600T67 PO; -LATU40TA PO; +LATU40TA2 PO
[2021-08-21 18:24] LABS: BACTERIA, URINE AUTO NEGATIVE (NEGATIVE); MUCUS, URINE SMALL (NEGATIVE); RBC, URINE AUTO 13 /HPF (0-3); SQUAMOUS EPITHELIAL CELL UR AU 1 /HPF (0-6); WBC, URINE AUTO TNTC /HPF (0-3)
== END ==
LOC: M SMT 16:38
PROVIDERS: ATTEND Specialist
DX: N32.81 Overactive bladder (principal); Z79.899 Other long term (current) drug therapy

== ENCOUNTER → 2021-09-11 | Outpatient (REF) | payer MEDICARE, MEDICAID ==
[2021-09-12 11:50] LABS: APPEARANCE, URINE HAZY (CLEAR); BACTERIA, URINE AUTO 1+ (NEGATIVE); BILIRUBIN, URINE AUTO NEGATIVE (NEGATIVE); BLOOD, URINE BLOOD 2+ (NEGATIVE); COLOR, URINE YELLOW (YELLOW); GLUCOSE, URINE (UA) AUTO NEGATIVE (NEGATIVE); KETONE, URINE AUTO NEGATIVE (NEGATIVE); LEUKOCYTE ESTERASE, URINE AUTO 3+ (NEGATIVE); MUCUS, URINE SMALL (NEGATIVE); NITRITE, URINE AUTO NEGATIVE (NEGATIVE); PROTEIN, URINE AUTO NEGATIVE (NEGATIVE); RBC, URINE AUTO 4 /HPF (0-3); SPECIFIC GRAVITY URINE AUTO 1.006 (1.002-1.035); SQUAMOUS EPITHELIAL CELL UR AU 0 /HPF (0-6); UROBILINOGEN, URINE AUTO 0.2 mg/dL (0.0-2.0); WBC, URINE AUTO 52 /HPF (0-3)
== END ==
LOC: M SFHCCLAY 14:40
PROVIDERS: ATTEND Physician Assistant
DX: R30.0 Dysuria (principal)

== ENCOUNTER → 2021-10-16 | Outpatient (REF) | payer MEDICARE, MEDICAID ==
[2021-10-16 13:42] LABS: BACTERIA, URINE AUTO NEGATIVE (NEGATIVE); RBC, URINE AUTO 0 /HPF (0-3); SQUAMOUS EPITHELIAL CELL UR AU 2 /HPF (0-6); WBC, URINE AUTO 2 /HPF (0-3)
== END ==
LOC: M SMT 12:51
PROVIDERS: ATTEND Specialist
DX: R82.81 Pyuria (principal)

== ENCOUNTER → 2021-11-21 | Outpatient (REF) | payer MEDICARE, MEDICAID ==
[2021-11-21 16:28] LABS: APPEARANCE, URINE CLOUDY (CLEAR); BACTERIA, URINE AUTO NEGATIVE (NEGATIVE); BILIRUBIN, URINE AUTO NEGATIVE (NEGATIVE); BLOOD, URINE BLOOD 1+ (NEGATIVE); COLOR, URINE YELLOW (YELLOW); GLUCOSE, URINE (UA) AUTO NEGATIVE (NEGATIVE); KETONE, URINE AUTO NEGATIVE (NEGATIVE); LEUKOCYTE ESTERASE, URINE AUTO 3+ (NEGATIVE); NITRITE, URINE AUTO POSITIVE (NEGATIVE); PROTEIN, URINE AUTO NEGATIVE (NEGATIVE); RBC, URINE AUTO 3 /HPF (0-3); SPECIFIC GRAVITY URINE AUTO 1.009 (1.002-1.035); SQUAMOUS EPITHELIAL CELL UR AU 4 /HPF (0-6); TRANSITIONAL EPITHELIAL AUTO 2 /HPF; UROBILINOGEN, URINE AUTO 0.2 mg/dL (0.0-2.0); WBC, URINE AUTO TNTC /HPF (0-3)
== END ==
LOC: M SFHCPLAZ 09:31
PROVIDERS: ATTEND Family Medicine
DX: R30.0 Dysuria (principal)

== ENCOUNTER → 2021-12-29 | Outpatient (REF) | payer MEDICARE, MEDICAID | LOC: M SMT 17:04 → M LABDRAWC 17:04 | PROVIDERS: ATTEND Specialist | DX: N39.0 Urinary tract infection, site not specified (principal) ==

== ENCOUNTER → 2022-01-01 | Outpatient (REF) | payer MEDICARE, MEDICAID ==
[2022-01-01 21:34] LABS: BLOOD UREA NITROGEN 15 MG/DL (7-18); CALCIUM LEVEL 9.9 MG/DL (8.8-10.2); CARBON DIOXIDE LEVEL 25 MEQ/L (21-32); CHLORIDE LEVEL 105 MEQ/L (98-107); CREATININE FOR GFR 0.92 MG/DL (0.55-1.30); GLOMERULAR FILTRATION RATE > 60.0 (>45); GLUCOSE, FASTING 78 MG/DL (70-100); POTASSIUM SERUM 4.4 MEQ/L (3.5-5.1); SODIUM LEVEL 137 MEQ/L (136-145)
== END ==
LOC: M LABSMT 12:53
PROVIDERS: ATTEND Specialist
DX: R31.29 Other microscopic hematuria (principal)

== ENCOUNTER → 2022-01-19 | Outpatient (REF) | payer MEDICARE, MEDICAID ==
[2022-01-19 18:25] LABS: ALT/SGPT 42 U/L (12-78); BILIRUBIN,TOTAL 0.3 MG/DL (0.2-1.0); BLOOD UREA NITROGEN 9 MG/DL (7-18); CALCIUM LEVEL 9.5 MG/DL (8.8-10.2); CARBON DIOXIDE LEVEL 26 MEQ/L (21-32); CHLORIDE LEVEL 108 MEQ/L (98-107); CREATININE FOR GFR 0.81 MG/DL (0.55-1.30); FREE T4 0.84 NG/DL (0.76-1.46); GLOMERULAR FILTRATION RATE > 60.0 (>45); GLUCOSE, FASTING 52 MG/DL (70-100); POTASSIUM SERUM 4.5 MEQ/L (3.5-5.1); SODIUM LEVEL 139 MEQ/L (136-145); THYROID STIMULATING HORMONE 0.187 uIU/ML (0.358-3.740); TOTAL PROTEIN 7.3 GM/DL (6.4-8.2)
[2022-01-19 18:55] LABS: TOTAL 25(OH) VITAMIN D 47.2 NG/ML (30.0-100.0)
[2022-01-19 18:57] LABS: PTH INTACT 52.1 PG/ML (18.5-88.0)
[2022-01-19 19:06] LABS: HEMOGLOBIN A1c 5.2 %
== END ==
LOC: M SFHCPLAZ 09:13
PROVIDERS: ATTEND Family Medicine
DX: E55.9 Vitamin D deficiency, unspecified (principal); E03.9 Hypothyroidism, unspecified

== ENCOUNTER → 2022-02-20 | Outpatient (CLI) | payer MEDICARE, MEDICAID | LOC: M CLY 10:46 | PROVIDERS: ATTEND Physician Assistant | DX: S22.31XA Fracture of one rib, right side, initial encounter for closed fracture (principal); Z95.0 Presence of cardiac pacemaker; X58.XXXA Exposure to other specified factors, initial encounter; Y92.9 Unspecified place or not applicable; Y93.9 Activity, unspecified; Y99.9 Unspecified external cause status ==

== ENCOUNTER → 2022-05-08 | Outpatient (CLI) | payer MEDICARE, MEDICAID | LOC: M WHC 10:02 | PROVIDERS: ATTEND Family Medicine | DX: Z12.31 Encounter for screening mammogram for malignant neoplasm of breast (principal) ==

== ENCOUNTER 2022-06-04 13:32 | Outpatient (CLI) | payer MEDICARE, MEDICAID ==
[~2022-06-04] VITALS: Ht 160 cm; Wt 82.7 kg
[~2022-06-04 13:32] MED LIST changes: -PAXI30TA11 PO; +PAXI30TA12 PO
[2022-06-04] MEDS ORDERED: ZOLEDRONIC ACID 5 MG in IV 1 EA IV ONE (14:00)
[2022-06-04 14:09] VITALS: BP 103/64
[2022-06-04 14:40] VITALS: BP 103/63
== END 2022-06-04 14:35 | disposition home or self-care (01) ==
LOC: M INFU 13:32
PROVIDERS: ATTEND Family Medicine
DX: M81.0 Age-related osteoporosis without current pathological fracture (principal)

== ENCOUNTER → 2022-07-16 | Outpatient (REF) | payer MEDICARE, MEDICAID ==
[2022-07-16 18:20] LABS: ALBUMIN 3.8 G/DL (3.2-5.2); ALKALINE PHOSPHATASE 67 U/L (46-116); ALT/SGPT 35 U/L (7.0-40); AST/SGOT 22 U/L (<34); BILIRUBIN,TOTAL 0.3 MG/DL (0.3-1.2); BLOOD UREA NITROGEN 20 MG/DL (9-23); CALCIUM LEVEL 9.6 MG/DL (8.3-10.6); CARBON DIOXIDE LEVEL 27 MMOL/L (20-31); CHLORIDE LEVEL 107 MMOL/L (98-107); CHOLESTEROL LEVEL 126 MG/DL (<200); CHOLESTEROL RISK RATIO 2.67 (<5); CREATININE FOR GFR 0.83 MG/DL (0.55-1.30); GLOMERULAR FILTRATION RATE > 60.0 (>45); GLUCOSE, FASTING 91 MG/DL (74-106); HDL CHOLESTEROL 47.1 MG/DL (>40); LDL CHOLESTEROL 52.1 MG/DL (<100); NON-HDL-C 79 MG/DL; POTASSIUM SERUM 4.8 MMOL/L (3.5-5.1); SODIUM LEVEL 141 MMOL/L (136-145); TOTAL PROTEIN 6.7 G/DL (5.7-8.2); TRIGLYCERIDES LEVEL 134 MG/DL (<150)
[2022-07-16 18:23] LABS: C REACTIVE PROTEIN QUANTITATIV < 0.40 MG/DL (<1.0)
[2022-07-16 18:24] LABS: FERRITIN 83.3 NG/ML (7.3-270.7); THYROID STIMULATING HORMONE 0.054 uIU/ML (0.55-4.78)
[2022-07-16 18:25] LABS: VITAMIN B12 LEVEL 289 PG/ML (211-911)
[2022-07-16 18:26] LABS: FREE T4 1.18 NG/DL (0.89-1.76)
[2022-07-16 18:28] LABS: CPK CREATINE PHOSPHOKINASE 50 U/L (34-145)
[2022-07-16 18:30] LABS: BASO % 0.4 % (0.0-1.0); EOS # 0.2 10^3/uL (0.0-0.5); HEMATOCRIT 40.9 % (36.0-47.0); HEMOGLOBIN 12.8 g/dl (12.0-15.5); LYMPH # 1.7 10^3/uL (1.5-5.0); LYMPH % 22.4 % (24.0-44.0); MEAN CORPUSCULAR HEMOGLOBIN 28.3 pg (27.0-33.0); MEAN CORPUSCULAR HGB CONC 31.3 g/dl (32.0-36.5); MEAN CORPUSCULAR VOLUME 90.3 fl (80.0-96.0); MONO # 0.8 10^3/uL (0.0-0.8); MONO % 10.8 % (2.0-8.0); NEUTROPHILS # 4.9 10^3/uL (1.5-8.5); NEUTROPHILS % 63.9 % (36.0-66.0); PLATELET COUNT, AUTOMATED 275 10^3/uL (150-450); RED BLOOD COUNT 4.53 10^6/uL (4.00-5.40); WHITE BLOOD COUNT 7.6 10^3/uL (4.0-10.0)
== END ==
LOC: M SFHCCLAY 12:35
PROVIDERS: ATTEND Family Medicine
DX: E03.9 Hypothyroidism, unspecified (principal); D50.9 Iron deficiency anemia, unspecified; E53.8 Deficiency of other specified B group vitamins; E78.2 Mixed hyperlipidemia

== ENCOUNTER → 2022-09-10 | Outpatient (CLI) | payer MEDICARE, MEDICAID | LOC: M RAD 10:29 | PROVIDERS: ATTEND Family Medicine | DX: Z12.2 Encounter for screening for malignant neoplasm of respiratory organs (principal); F17.218 Nicotine dependence, cigarettes, with other nicotine-induced disorders ==

== ENCOUNTER → 2022-09-15 | Outpatient (REF) | payer MEDICARE, MEDICAID ==
[2022-09-15 18:30] LABS: BASO # 0.1 10^3/uL (0.0-0.2); BASO % 0.6 % (0.0-1.0); EOS # 0.1 10^3/uL (0.0-0.5); EOS % 1.7 % (0.0-3.0); HEMATOCRIT 40.5 % (36.0-47.0); LYMPH % 23.9 % (24.0-44.0); MEAN CORPUSCULAR HGB CONC 32.5 g/dl (32.0-36.5); MEAN CORPUSCULAR VOLUME 89.1 fl (80.0-96.0); MONO # 0.7 10^3/uL (0.0-0.8); MONO % 8.3 % (2.0-8.0); NEUTROPHILS # 5.4 10^3/uL (1.5-8.5); NEUTROPHILS % 65.1 % (36.0-66.0); PLATELET COUNT, AUTOMATED 283 10^3/uL (150-450); RED BLOOD COUNT 4.49 10^6/uL (4.00-5.40); WHITE BLOOD COUNT 8.3 10^3/uL (4.0-10.0)
[2022-09-15 19:02] LABS: TOTAL 25(OH) VITAMIN D 37.3 NG/ML (20.0-100.0)
[2022-09-15 19:03] LABS: ALKALINE PHOSPHATASE 57 U/L (46-116); ALT/SGPT 36 U/L (7.0-40); AST/SGOT 21 U/L (<34); BILIRUBIN,TOTAL 0.4 MG/DL (0.3-1.2); BLOOD UREA NITROGEN 12 MG/DL (9-23); CALCIUM LEVEL 9.8 MG/DL (8.3-10.6); CARBON DIOXIDE LEVEL 27 MMOL/L (20-31); CHLORIDE LEVEL 104 MMOL/L (98-107); CREATININE FOR GFR 0.84 MG/DL (0.55-1.30); CREATININE, URINE 23.2 MG/DL; GLOMERULAR FILTRATION RATE > 60.0 (>45); GLUCOSE, FASTING 76 MG/DL (74-106); MALB URINE SIEMENS < 3.0 MG/L; MAU/CREAT RATIO 12.9 MCG/MG (0.0-30.0); POTASSIUM SERUM 4.3 MMOL/L (3.5-5.1); PTH INTACT 49.8 PG/ML (18.5-88.0); SODIUM LEVEL 139 MMOL/L (136-145); TOTAL PROTEIN 6.7 G/DL (5.7-8.2); VITAMIN B12 LEVEL 710 PG/ML (211-911)
[2022-09-15 19:04] LABS: FREE T4 1.33 NG/DL (0.89-1.76)
[2022-09-15 19:05] LABS: HEMOGLOBIN A1c 5.2 % (4.0-6.0)
== END ==
LOC: M SFHCCLAY 14:00
PROVIDERS: ATTEND Family Medicine
DX: E53.8 Deficiency of other specified B group vitamins (principal); E03.9 Hypothyroidism, unspecified; D50.9 Iron deficiency anemia, unspecified; R73.01 Impaired fasting glucose

== ENCOUNTER → 2022-09-25 | Outpatient (CLI) | payer MEDICARE, MEDICAID | LOC: M RAD 13:24 | PROVIDERS: ATTEND Family Medicine | DX: Z12.2 Encounter for screening for malignant neoplasm of respiratory organs (principal); Z87.891 Personal history of nicotine dependence; Z53.9 Procedure and treatment not carried out, unspecified reason ==

== ENCOUNTER → 2022-10-01 | Outpatient (CLI) | payer MEDICARE, MEDICAID ==
[2022-10-02 11:08] LABS: APPEARANCE, URINE HAZY (CLEAR); BACTERIA, URINE AUTO 1+ (NEGATIVE); BILIRUBIN, URINE AUTO NEGATIVE (NEGATIVE); BLOOD, URINE BLOOD 1+ (NEGATIVE); COLOR, URINE YELLOW (YELLOW); GLUCOSE, URINE (UA) AUTO NEGATIVE (NEGATIVE); KETONE, URINE AUTO NEGATIVE (NEGATIVE); LEUKOCYTE ESTERASE, URINE AUTO 1+ (NEGATIVE); MUCUS, URINE SMALL (NEGATIVE); NITRITE, URINE AUTO POSITIVE (NEGATIVE); PROTEIN, URINE AUTO NEGATIVE (NEGATIVE); RBC, URINE AUTO 2 /HPF (0-3); SPECIFIC GRAVITY URINE AUTO 1.013 (1.002-1.035); SQUAMOUS EPITHELIAL CELL UR AU 1 /HPF (0-6); UROBILINOGEN, URINE AUTO 0.2 mg/dL (0.0-2.0); WBC, URINE AUTO 7 /HPF (0-3)
== END ==
LOC: M PLAIMG 16:33
PROVIDERS: ATTEND Family Medicine
DX: M85.88 Other specified disorders of bone density and structure, other site (principal); M47.816 Spondylosis without myelopathy or radiculopathy, lumbar region; M51.36 Other intervertebral disc degeneration, lumbar region; M51.37 Other intervertebral disc degeneration, lumbosacral region; Z79.899 Other long term (current) drug therapy

== ENCOUNTER → 2022-10-13 | Outpatient (REF) | payer MEDICARE, MEDICAID | LOC: M SFHCCLAY 14:51 | PROVIDERS: ATTEND Physician Assistant | DX: R30.0 Dysuria (principal) ==

== ENCOUNTER → 2022-10-20 | Outpatient (CLI) | payer MEDICARE, MEDICAID ==
[~2022-10-20] MED LIST changes: +ISOVUE-370 76% 100ML VIAL As Ordered ONE
== END ==
LOC: M RAD 15:16
PROVIDERS: ATTEND Otolaryngology
DX: K13.79 Other lesions of oral mucosa (principal); Z95.0 Presence of cardiac pacemaker; M47.812 Spondylosis without myelopathy or radiculopathy, cervical region; R93.0 Abnormal findings on diagnostic imaging of skull and head, not elsewhere classified
CPT/HCPCS: 70491; Q9967

== ENCOUNTER 2022-11-05 09:55 | Day surgery (SDC) | payer MEDICARE, MEDICAID ==
[~2022-11-05] VITALS: Ht 160 cm; Wt 82.7 kg
[~2022-11-05 09:55] MED LIST changes: +B-12100T2 PO; -ISOVUE-370 76% 100ML VIAL As Ordered ONE; +LURA80TA PO; +METH-855 PO; +MYRB50TA PO; +OXYB10TA23 PO; +SERT200C PO; +VALA1TAB5 PO; +VICT18IN2 SC; +VITA100093 PO
[2022-11-05] MEDS ORDERED: LIDOCAINE W/EPINEPHRINE 1% 20ML VIAL As Ordered ONE (12:25)
[2022-11-05] MEDS ORDERED: fentaNYL 100 MCG/2 ML INJECTION As Ordered ONE (12:29)
[2022-11-05] MEDS ORDERED: MIDAZOLAM INJ 2MG/2ML VIAL As Ordered ONE (12:29)
[2022-11-05] MEDS ORDERED: ONDANSETRON 4MG 2ML VIAL As Ordered ONE (12:29)
[2022-11-05] MEDS ORDERED: propofoL 200 MG/20 ML VIAL As Ordered ONE (12:29)
[2022-11-05] MEDS ORDERED: LIDOCAINE 2% 100MG/5ML SDV (FOR ANES.) As Ordered ONE (12:29)
[2022-11-05] MEDS ORDERED: ROCURONIUM BROMIDE 50MG/5ML VIAL As Ordered ONE (12:50)
[2022-11-05] MEDS ORDERED: SILVER NITRATE APPLICATOR (1 = QTY 10) As Ordered ONE (13:05)
[2022-11-05] MEDS ORDERED: ACETAMINOPHEN 1000MG 100ML IV BAG As Ordered ONE (13:19)
[2022-11-05] MEDS ORDERED: SUGAMMADEX SODIUM 500 MG/5 ML VIAL (BRIDION) As Ordered ONE (13:21)
[2022-11-05] MEDS ORDERED: ePHEDrine SULFATE 25 MG/5 ML(5MG/ML) SYRINGE As Ordered ONE (13:28)
[2022-11-05] MEDS ORDERED: HYDROMORPHONE HCL 0.5 MG/ 0.5 ML SYRINGE IV PRN (14:05)
[2022-11-05] MEDS ORDERED: ONDANSETRON 4MG 2ML VIAL IV PRN (14:05)
[2022-11-05] MEDS ORDERED: LR 1,000 ML IV SCH (14:05)
[2022-11-05] MEDS ORDERED: oxyCODONE 5MG TAB PO PRN (14:05)
[2022-11-05] MEDS: fentaNYL 100 MCG/2 ML INJECTION IV PRN ×2 (14:40→14:56)
[2022-11-05 15:45] VITALS: BP 141/76; TEMP 97.9; O2SAT 96
== END 2022-11-05 15:58 | disposition home or self-care (01) ==
LOC: M SDC 09:55
PROVIDERS: ATTEND Otolaryngology
DX: K13.70 Unspecified lesions of oral mucosa (principal); E78.5 Hyperlipidemia, unspecified; E03.9 Hypothyroidism, unspecified; Z95.0 Presence of cardiac pacemaker; M81.0 Age-related osteoporosis without current pathological fracture; F32.A Depression, unspecified; G47.33 Obstructive sleep apnea (adult) (pediatric); Z87.891 Personal history of nicotine dependence; Z79.899 Other long term (current) drug therapy
CPT/HCPCS: 42100; 88305; J0131; J1100; J2250; J2405; J3010

== ENCOUNTER → 2022-12-29 | Outpatient (REF) | payer MEDICARE, MEDICAID ==
[~2022-12-29] MED LIST changes: -GABA-283 PO; +GABA-284 PO
[2022-12-29 18:26] LABS: APPEARANCE, URINE HAZY (CLEAR); BACTERIA, URINE AUTO 2+ (NEGATIVE); BILIRUBIN, URINE AUTO NEGATIVE (NEGATIVE); BLOOD, URINE BLOOD NEGATIVE (NEGATIVE); COLOR, URINE YELLOW (YELLOW); GLUCOSE, URINE (UA) AUTO NEGATIVE (NEGATIVE); KETONE, URINE AUTO NEGATIVE (NEGATIVE); LEUKOCYTE ESTERASE, URINE AUTO 2+ (NEGATIVE); NITRITE, URINE AUTO POSITIVE (NEGATIVE); PROTEIN, URINE AUTO NEGATIVE (NEGATIVE); RBC, URINE AUTO 0 /HPF (0-3); SQUAMOUS EPITHELIAL CELL UR AU 1 /HPF (0-6); UROBILINOGEN, URINE AUTO 0.2 mg/dL (0.0-2.0); WBC, URINE AUTO 45 /HPF (0-3)
== END ==
LOC: M SMT 17:05
PROVIDERS: ATTEND Specialist
DX: N39.0 Urinary tract infection, site not specified (principal)

== ENCOUNTER → 2023-02-02 | Outpatient (REF) | payer MEDICARE, MEDICAID ==
[2023-02-02 17:55] LABS: BASO # 0.1 10^3/uL (0.0-0.2); BASO % 0.4 % (0.0-1.0); EOS # 0.1 10^3/uL (0.0-0.5); EOS % 0.5 % (0.0-3.0); HEMATOCRIT 42.1 % (36.0-47.0); HEMOGLOBIN 13.3 g/dl (12.0-15.5); LYMPH # 0.9 10^3/uL (1.5-5.0); LYMPH % 6.3 % (24.0-44.0); MEAN CORPUSCULAR HEMOGLOBIN 28.9 pg (27.0-33.0); MEAN CORPUSCULAR HGB CONC 31.6 g/dl (32.0-36.5); MEAN CORPUSCULAR VOLUME 91.5 fl (80.0-96.0); MONO # 0.7 10^3/uL (0.0-0.8); MONO % 5.3 % (2.0-8.0); NEUTROPHILS # 12.1 10^3/uL (1.5-8.5); NEUTROPHILS % 87.1 % (36.0-66.0); PLATELET COUNT, AUTOMATED 255 10^3/uL (150-450); WHITE BLOOD COUNT 13.9 10^3/uL (4.0-10.0)
[2023-02-02 17:58] LABS: ALKALINE PHOSPHATASE 64 U/L (46-116); ALT/SGPT 46 U/L (7.0-40); AST/SGOT 23 U/L (<34); BILIRUBIN,TOTAL 0.4 MG/DL (0.3-1.2); BLOOD UREA NITROGEN 18 MG/DL (9-23); CARBON DIOXIDE LEVEL 21 MMOL/L (20-31); CHLORIDE LEVEL 107 MMOL/L (98-107); CREATININE FOR GFR 0.74 MG/DL (0.55-1.30); GLOMERULAR FILTRATION RATE > 60.0 (>45); GLUCOSE, FASTING 102 MG/DL (74-106); POTASSIUM SERUM 4.4 MMOL/L (3.5-5.1); SODIUM LEVEL 139 MMOL/L (136-145); TOTAL PROTEIN 6.6 G/DL (5.7-8.2)
[2023-02-02 18:00] LABS: FERRITIN 52.6 NG/ML (7.3-270.7); FREE T4 0.98 NG/DL (0.89-1.76); THYROID STIMULATING HORMONE 5.348 uIU/ML (0.55-4.78)
== END ==
LOC: M SFHCCLAY 09:44
PROVIDERS: ATTEND Family Medicine
DX: E03.9 Hypothyroidism, unspecified (principal); D50.9 Iron deficiency anemia, unspecified

== ENCOUNTER → 2023-02-19 | Outpatient (REF) | payer MEDICARE, MEDICAID ==
[2023-02-19 19:07] LABS: APPEARANCE, URINE CLOUDY (CLEAR); BACTERIA, URINE AUTO 1+ (NEGATIVE); BILIRUBIN, URINE AUTO NEGATIVE (NEGATIVE); BLOOD, URINE BLOOD 1+ (NEGATIVE); COLOR, URINE YELLOW (YELLOW); GLUCOSE, URINE (UA) AUTO NEGATIVE (NEGATIVE); KETONE, URINE AUTO NEGATIVE (NEGATIVE); LEUKOCYTE ESTERASE, URINE AUTO 3+ (NEGATIVE); MUCUS, URINE SMALL (NEGATIVE); NITRITE, URINE AUTO POSITIVE (NEGATIVE); PROTEIN, URINE AUTO NEGATIVE (NEGATIVE); RBC, URINE AUTO 4 /HPF (0-3); SPECIFIC GRAVITY URINE AUTO 1.008 (1.002-1.035); SQUAMOUS EPITHELIAL CELL UR AU 1 /HPF (0-6); UROBILINOGEN, URINE AUTO 0.2 mg/dL (0.0-2.0); WBC, URINE AUTO TNTC /HPF (0-3)
== END ==
LOC: M SMT 17:04
PROVIDERS: ATTEND Specialist
DX: N39.0 Urinary tract infection, site not specified (principal)

== ENCOUNTER → 2023-03-12 | Outpatient (CLI) | payer MEDICARE, MEDICAID ==
[2023-03-12 16:14] LABS: ALKALINE PHOSPHATASE 58 U/L (46-116); ALT/SGPT 32 U/L (7.0-40); AST/SGOT 22 U/L (<34); BILIRUBIN,DIRECT 0.2 MG/DL (<0.4); BILIRUBIN,TOTAL 0.5 MG/DL (0.3-1.2); TOTAL PROTEIN 7.1 G/DL (5.7-8.2)
[2023-03-12 16:54] LABS: HEPATITIS B CORE ANTIBODY IGM NEGATIVE (NEGATIVE); HEPATITIS C VIRUS ABY INDEX 0.07 INDEX (<0.8)
[2023-03-16 15:08] LABS: HBV HBV DNA not detected IU/mL (.); HEPATITIS A IgG TOTAL Positive (Negative); HEPATITIS B CORE ANTIBODY IGG Negative (Negative); HEPATITIS BE ANTIGEN Negative (Negative)
== END ==
LOC: M PLALAB 12:44
PROVIDERS: ATTEND Family Medicine
DX: R76.8 Other specified abnormal immunological findings in serum (principal)

== ENCOUNTER → 2023-05-20 | Outpatient (REF) | payer MEDICARE, MEDICAID ==
[2023-05-20 17:14] LABS: INR 1.06; PROTHROMBIN TIME 13.5 SECONDS (12.5-14.5)
[2023-05-20 17:15] LABS: PARTIAL THROMBOPLASTIN TIME 29.4 SECONDS (24.8-34.2)
[2023-05-20 17:54] LABS: CHOLESTEROL RISK RATIO 2.6 (<5); HDL CHOLESTEROL 56.5 MG/DL (>40); LDL CHOLESTEROL 53.5 MG/DL (<100); NON-HDL-C 90.5 MG/DL; PTH INTACT 56.6 PG/ML (18.5-88.0)
[2023-05-20 17:56] LABS: FREE T4 1.1 NG/DL (0.89-1.76); THYROID STIMULATING HORMONE 0.228 uIU/ML (0.55-4.78)
[2023-05-20 17:57] LABS: TOTAL 25(OH) VITAMIN D 32.9 NG/ML (20.0-100.0)
[2023-05-20 18:33] LABS: HEMOGLOBIN A1c 5.1 % (4.0-6.0)
== END ==
LOC: M SFHCPLAZ 13:39
PROVIDERS: ATTEND Family Medicine
DX: K76.0 Fatty (change of) liver, not elsewhere classified (principal); R73.01 Impaired fasting glucose; E03.9 Hypothyroidism, unspecified; E55.9 Vitamin D deficiency, unspecified

== ENCOUNTER → 2023-06-29 | Outpatient (REF) | payer MEDICARE, MEDICAID ==
[2023-06-29 18:06] LABS: ALBUMIN 3.9 G/DL (3.2-5.2); BLOOD UREA NITROGEN 16 MG/DL (9-23); CALCIUM LEVEL 9.9 MG/DL (8.3-10.6); CARBON DIOXIDE LEVEL 27 MMOL/L (20-31); CHLORIDE LEVEL 107 MMOL/L (98-107); CREATININE FOR GFR 0.88 MG/DL (0.55-1.30); GLOMERULAR FILTRATION RATE > 60.0 (>45); GLUCOSE, FASTING 91 MG/DL (74-106); PHOSPHORUS LEVEL 5.4 MG/DL (2.4-5.1); POTASSIUM SERUM 4.6 MMOL/L (3.5-5.1); SODIUM LEVEL 139 MMOL/L (136-145)
== END ==
LOC: M SFHCPLAZ 10:00
PROVIDERS: ATTEND Family Medicine
DX: M81.0 Age-related osteoporosis without current pathological fracture (principal)

== ENCOUNTER → 2023-06-30 | Outpatient (CLI) | payer MEDICARE, MEDICAID ==
[~2023-06-30] VITALS: Ht 160 cm; Wt 79.5 kg
[~2023-06-30] MED LIST changes: +ZOLEDRONIC ACID 5 MG in IV 1 EA IV ONE
[2023-06-30 15:20] VITALS: BP 125/72; O2SAT 98
[2023-06-30 16:07] VITALS: BP 110/63; O2SAT 96
== END ==
LOC: M INFU 14:40
PROVIDERS: ATTEND Family Medicine
DX: M81.0 Age-related osteoporosis without current pathological fracture (principal)
CPT/HCPCS: 96413; J3489

== ENCOUNTER → 2023-07-01 | Outpatient (CLI) | payer MEDICARE, MEDICAID ==
[~2023-07-01] MED LIST changes: -ZOLEDRONIC ACID 5 MG in IV 1 EA IV ONE
== END ==
LOC: M WHC 14:57
PROVIDERS: ATTEND Family Medicine
DX: Z12.39 Encounter for other screening for malignant neoplasm of breast (principal)

== ENCOUNTER → 2023-07-05 | Outpatient (CLI) | payer MEDICARE, MEDICAID | LOC: M WHC 10:42 | PROVIDERS: ATTEND Family Medicine | DX: Z12.31 Encounter for screening mammogram for malignant neoplasm of breast (principal); M85.88 Other specified disorders of bone density and structure, other site ==

== ENCOUNTER → 2023-07-15 | Outpatient (REF) | payer MEDICARE, MEDICAID ==
[2023-07-15 17:24] LABS: BASO # 0.1 10^3/uL (0.0-0.2); BASO % 0.9 % (0.0-1.0); EOS # 0.2 10^3/uL (0.0-0.5); EOS % 2.3 % (0.0-3.0); HEMATOCRIT 39.8 % (36.0-47.0); HEMOGLOBIN 12.8 g/dl (12.0-15.5); LYMPH # 1.7 10^3/uL (1.5-5.0); LYMPH % 22.7 % (24.0-44.0); MEAN CORPUSCULAR HEMOGLOBIN 27.9 pg (27.0-33.0); MEAN CORPUSCULAR HGB CONC 32.2 g/dl (32.0-36.5); MEAN CORPUSCULAR VOLUME 86.9 fl (80.0-96.0); MONO # 0.7 10^3/uL (0.0-0.8); MONO % 9.6 % (2.0-8.0); NEUTROPHILS # 4.8 10^3/uL (1.5-8.5); NEUTROPHILS % 64.2 % (36.0-66.0); PLATELET COUNT, AUTOMATED 297 10^3/uL (150-450); RED BLOOD COUNT 4.58 10^6/uL (4.00-5.40); WHITE BLOOD COUNT 7.5 10^3/uL (4.0-10.0)
[2023-07-15 17:49] LABS: ALBUMIN 4.2 G/DL (3.2-5.2); ALKALINE PHOSPHATASE 80 U/L (46-116); ALT/SGPT 27 U/L (7.0-40); AST/SGOT 19 U/L (<34); BILIRUBIN,TOTAL 0.3 MG/DL (0.3-1.2); BLOOD UREA NITROGEN 16 MG/DL (9-23); CALCIUM LEVEL 9.5 MG/DL (8.3-10.6); CARBON DIOXIDE LEVEL 26 MMOL/L (20-31); CHLORIDE LEVEL 105 MMOL/L (98-107); CHOLESTEROL LEVEL 135 MG/DL (<200); CHOLESTEROL RISK RATIO 2.47 (<5); CREATININE FOR GFR 0.87 MG/DL (0.55-1.30); GLOMERULAR FILTRATION RATE > 60.0 (>45); GLUCOSE, FASTING 93 MG/DL (74-106); HDL CHOLESTEROL 54.5 MG/DL (>40); LDL CHOLESTEROL 54.3 MG/DL (<100); NON-HDL-C 80.5 MG/DL; SODIUM LEVEL 137 MMOL/L (136-145); TRIGLYCERIDES LEVEL 131 MG/DL (<150)
[2023-07-15 17:55] LABS: FREE T4 0.89 NG/DL (0.89-1.76)
[2023-07-15 17:56] LABS: FERRITIN 20.7 NG/ML (7.3-270.7); THYROID STIMULATING HORMONE 0.633 uIU/ML (0.55-4.78)
== END ==
LOC: M SFHCPLAZ 11:38
PROVIDERS: ATTEND Family Medicine
DX: E03.9 Hypothyroidism, unspecified (principal); K76.0 Fatty (change of) liver, not elsewhere classified; D50.9 Iron deficiency anemia, unspecified; E78.2 Mixed hyperlipidemia

== ENCOUNTER → 2023-08-16 | Outpatient (REF) | payer MEDICARE, MEDICAID ==
[2023-08-16 16:03] LABS: APPEARANCE, URINE HAZY (CLEAR); BACTERIA, URINE AUTO 1+ (NEGATIVE); BILIRUBIN, URINE AUTO NEGATIVE (NEGATIVE); BLOOD, URINE BLOOD NEGATIVE (NEGATIVE); COLOR, URINE YELLOW (YELLOW); GLUCOSE, URINE (UA) AUTO NEGATIVE (NEGATIVE); KETONE, URINE AUTO NEGATIVE (NEGATIVE); LEUKOCYTE ESTERASE, URINE AUTO 2+ (NEGATIVE); NITRITE, URINE AUTO NEGATIVE (NEGATIVE); PROTEIN, URINE AUTO NEGATIVE (NEGATIVE); RBC, URINE AUTO 1 /HPF (0-3); SPECIFIC GRAVITY URINE AUTO 1.008 (1.002-1.035); SQUAMOUS EPITHELIAL CELL UR AU 1 /HPF (0-6); UROBILINOGEN, URINE AUTO 0.2 mg/dL (0.0-2.0); WBC, URINE AUTO 39 /HPF (0-3)
== END ==
LOC: M SFHCPLAZ 15:25
PROVIDERS: ATTEND Student in an Organized Health Care Education/Training Program
DX: R39.9 Unspecified symptoms and signs involving the genitourinary system (principal)

== ENCOUNTER → 2023-09-15 | Outpatient (CLI) | payer MEDICARE, MEDICAID | LOC: M RAD 10:35 | PROVIDERS: ATTEND Family Medicine | DX: Z12.2 Encounter for screening for malignant neoplasm of respiratory organs (principal); Z87.891 Personal history of nicotine dependence ==

== ENCOUNTER → 2023-09-21 | Outpatient (CLI) | payer MEDICARE, MEDICAID | LOC: M CLY 09:45 | PROVIDERS: ATTEND Physician Assistant | DX: M79.602 Pain in left arm (principal) ==

== ENCOUNTER → 2023-11-02 | Outpatient (REF) | payer MEDICARE, MEDICAID ==
[~2023-11-02] MED LIST changes: +BUPR-597 PO; -BUPR300T92 PO; -ROSU40TA4 PO; +ROSU40TA63 PO
[2023-11-02 17:40] LABS: THYROID STIMULATING HORMONE 0.461 uIU/ML (0.55-4.78)
[2023-11-02 17:41] LABS: FERRITIN 17.1 NG/ML (7.3-270.7)
[2023-11-02 17:42] LABS: FREE T4 0.89 NG/DL (0.89-1.76)
[2023-11-02 17:43] LABS: ALBUMIN 3.7 G/DL (3.2-5.2); ALKALINE PHOSPHATASE 64 U/L (46-116); ALT/SGPT 33 U/L (7.0-40); AST/SGOT 18 U/L (<34); BILIRUBIN,TOTAL 0.3 MG/DL (0.3-1.2); BLOOD UREA NITROGEN 19 MG/DL (9-23); CALCIUM LEVEL 9.7 MG/DL (8.3-10.6); CARBON DIOXIDE LEVEL 24 MMOL/L (20-31); CHLORIDE LEVEL 108 MMOL/L (98-107); CREATININE FOR GFR 0.81 MG/DL (0.55-1.30); GLOMERULAR FILTRATION RATE > 60.0 (>45); GLUCOSE, FASTING 133 MG/DL (74-106); POTASSIUM SERUM 4.2 MMOL/L (3.5-5.1); PTH INTACT 50.6 PG/ML (18.5-88.0); SODIUM LEVEL 140 MMOL/L (136-145); TOTAL PROTEIN 6.7 G/DL (5.7-8.2)
[2023-11-02 18:02] LABS: BASO # 0.1 10^3/uL (0.0-0.2); BASO % 0.6 % (0.0-1.0); EOS # 0.2 10^3/uL (0.0-0.5); EOS % 2.4 % (0.0-3.0); HEMATOCRIT 39.7 % (36.0-47.0); HEMOGLOBIN 12.8 g/dl (12.0-15.5); LYMPH # 1.7 10^3/uL (1.5-5.0); LYMPH % 20.5 % (24.0-44.0); MEAN CORPUSCULAR HEMOGLOBIN 28.7 pg (27.0-33.0); MEAN CORPUSCULAR HGB CONC 32.2 g/dl (32.0-36.5); MONO # 0.7 10^3/uL (0.0-0.8); MONO % 8.5 % (2.0-8.0); NEUTROPHILS # 5.5 10^3/uL (1.5-8.5); NEUTROPHILS % 67.6 % (36.0-66.0); PLATELET COUNT, AUTOMATED 282 10^3/uL (150-450); RED BLOOD COUNT 4.46 10^6/uL (4.00-5.40); WHITE BLOOD COUNT 8.2 10^3/uL (4.0-10.0)
== END ==
LOC: M SFHCPLAZ 10:08
PROVIDERS: ATTEND Family Medicine
DX: E03.9 Hypothyroidism, unspecified (principal); D50.9 Iron deficiency anemia, unspecified; R73.01 Impaired fasting glucose; E55.9 Vitamin D deficiency, unspecified

== ENCOUNTER → 2023-11-03 | Outpatient (REF) | payer MEDICARE, MEDICAID | LOC: M SFHCCLAY 16:37 | PROVIDERS: ATTEND Physician Assistant | DX: R30.0 Dysuria (principal) ==

== ENCOUNTER → 2023-11-18 | Outpatient (REF) | payer MEDICARE, MEDICAID ==
[2023-11-19 11:19] LABS: APPEARANCE, URINE CLEAR (CLEAR); BACTERIA, URINE AUTO NEGATIVE (NEGATIVE); BILIRUBIN, URINE AUTO NEGATIVE (NEGATIVE); BLOOD, URINE BLOOD 1+ (NEGATIVE); COLOR, URINE STRAW (YELLOW); GLUCOSE, URINE (UA) AUTO NEGATIVE (NEGATIVE); KETONE, URINE AUTO NEGATIVE (NEGATIVE); LEUKOCYTE ESTERASE, URINE AUTO NEGATIVE (NEGATIVE); NITRITE, URINE AUTO NEGATIVE (NEGATIVE); PROTEIN, URINE AUTO NEGATIVE (NEGATIVE); RBC, URINE AUTO 0 /HPF (0-3); SPECIFIC GRAVITY URINE AUTO 1.004 (1.002-1.035); SQUAMOUS EPITHELIAL CELL UR AU 1 /HPF (0-6); UROBILINOGEN, URINE AUTO 0.2 mg/dL (0.0-2.0); WBC, URINE AUTO 1 /HPF (0-3)
== END ==
LOC: M SFHCPLAZ 19:57
PROVIDERS: ATTEND Family Medicine
DX: N39.0 Urinary tract infection, site not specified (principal)

== ENCOUNTER → 2023-11-22 | Outpatient (CLI) | payer MEDICARE, MEDICAID | LOC: M PLAIMG 12:10 | PROVIDERS: ATTEND Family Medicine | DX: M25.812 Other specified joint disorders, left shoulder (principal) ==

== ENCOUNTER → 2023-12-24 | Outpatient (CLI) | payer MEDICARE, MEDICAID | LOC: M RAD 07:22 | PROVIDERS: ATTEND Family Medicine | DX: K76.0 Fatty (change of) liver, not elsewhere classified (principal); R93.89 Abnormal findings on diagnostic imaging of other specified body structures ==

== ENCOUNTER → 2024-01-26 | Outpatient (REF) | payer MEDICARE, MEDICAID ==
[~2024-01-26] MED LIST changes: +LEVO112T2 PO; +METF-838 PO; -ROSU40TA63 PO; +ROSU40TA81 PO
[2024-01-26 17:49] LABS: APPEARANCE, URINE HAZY (CLEAR); BACTERIA, URINE AUTO 1+ (NEGATIVE); BILIRUBIN, URINE AUTO NEGATIVE (NEGATIVE); BLOOD, URINE BLOOD 1+ (NEGATIVE); COLOR, URINE YELLOW (YELLOW); GLUCOSE, URINE (UA) AUTO NEGATIVE (NEGATIVE); KETONE, URINE AUTO NEGATIVE (NEGATIVE); LEUKOCYTE ESTERASE, URINE AUTO 3+ (NEGATIVE); NITRITE, URINE AUTO NEGATIVE (NEGATIVE); PROTEIN, URINE AUTO NEGATIVE (NEGATIVE); RBC, URINE AUTO 1 /HPF (0-3); SPECIFIC GRAVITY URINE AUTO 1.006 (1.002-1.035); SQUAMOUS EPITHELIAL CELL UR AU 4 /HPF (0-6); UROBILINOGEN, URINE AUTO 0.2 mg/dL (0.0-2.0); WBC, URINE AUTO 6 /HPF (0-3)
== END ==
LOC: M SMT 17:18
PROVIDERS: ATTEND Specialist
DX: N39.0 Urinary tract infection, site not specified (principal)

== ENCOUNTER 2024-03-27 09:21 | Day surgery (SDC) | payer MEDICARE, MEDICAID ==
[~2024-03-27] VITALS: Ht 160 cm; Wt 83.8 kg
[~2024-03-27 09:21] MED LIST changes: +NS 250 ML IV ONE
[2024-03-27] MEDS ORDERED: propofoL 200 MG/20 ML VIAL As Ordered ONE (10:26)
[2024-03-27] MEDS ORDERED: LIDOCAINE 2% 100MG/5ML SDV (FOR ANES.) As Ordered ONE (10:26)
[2024-03-27 11:08] VITALS: BP 113/76; O2SAT 95
== END 2024-03-27 11:12 | disposition home or self-care (01) ==
LOC: M OPP 09:21
PROVIDERS: ATTEND Internal Medicine Gastroenterology
DX: Z12.11 Encounter for screening for malignant neoplasm of colon (principal); Z12.12 Encounter for screening for malignant neoplasm of rectum; K44.9 Diaphragmatic hernia without obstruction or gangrene; K31.7 Polyp of stomach and duodenum; R12 Heartburn; E03.9 Hypothyroidism, unspecified; E78.00 Pure hypercholesterolemia, unspecified; G47.30 Sleep apnea, unspecified; R32 Unspecified urinary incontinence; Z79.890 Hormone replacement therapy; Z79.899 Other long term (current) drug therapy; Z79.84 Long term (current) use of oral hypoglycemic drugs; Z95.0 Presence of cardiac pacemaker; Z87.891 Personal history of nicotine dependence; Z90.710 Acquired absence of both cervix and uterus
CPT/HCPCS: 43239; 88305; G0121

== ENCOUNTER → 2024-04-06 | Outpatient (CLI) | payer MEDICARE, MEDICAID ==
[~2024-04-06] MED LIST changes: -NS 250 ML IV ONE
== END ==
LOC: M PLAIMG 11:59
DX: M47.812 Spondylosis without myelopathy or radiculopathy, cervical region (principal)

== ENCOUNTER → 2024-04-19 | Outpatient (REF) | payer MEDICARE, MEDICAID ==
[2024-04-19 16:36] LABS: BASO # 0.1 10^3/uL (0.0-0.2); BASO % 0.9 % (0.0-1.0); EOS # 0.1 10^3/uL (0.0-0.5); EOS % 1.9 % (0.0-3.0); HEMATOCRIT 40.6 % (36.0-47.0); HEMOGLOBIN 13.1 g/dl (12.0-15.5); LYMPH # 1.7 10^3/uL (1.5-5.0); LYMPH % 22.5 % (24.0-44.0); MEAN CORPUSCULAR HEMOGLOBIN 28.9 pg (27.0-33.0); MEAN CORPUSCULAR HGB CONC 32.3 g/dl (32.0-36.5); MEAN CORPUSCULAR VOLUME 89.4 fl (80.0-96.0); MONO # 0.7 10^3/uL (0.0-0.8); MONO % 9.4 % (2.0-8.0); NEUTROPHILS # 4.9 10^3/uL (1.5-8.5); PLATELET COUNT, AUTOMATED 272 10^3/uL (150-450); RED BLOOD COUNT 4.54 10^6/uL (4.00-5.40); WHITE BLOOD COUNT 7.5 10^3/uL (4.0-10.0)
[2024-04-19 17:03] LABS: INR 0.99; PARTIAL THROMBOPLASTIN TIME 29.6 SECONDS (24.8-34.2); PROTHROMBIN TIME 13.4 SECONDS (12.5-14.5)
[2024-04-19 17:08] LABS: ALKALINE PHOSPHATASE 67 U/L (35-104); ALT/SGPT 25 U/L (7.0-40); AST/SGOT 15 U/L (<34); BILIRUBIN,TOTAL 0.3 MG/DL (0.3-1.2); BLOOD UREA NITROGEN 14 MG/DL (9-23); CALCIUM LEVEL 9.9 MG/DL (8.3-10.6); CARBON DIOXIDE LEVEL 26 MMOL/L (20-31); CHLORIDE LEVEL 107 MMOL/L (98-107); CHOLESTEROL LEVEL 138 MG/DL (<200); CREATININE FOR GFR 0.91 MG/DL (0.55-1.30); GLOMERULAR FILTRATION RATE > 60.0 (>45); GLUCOSE, FASTING 69 MG/DL (74-106); HDL CHOLESTEROL 55.2 MG/DL (>40); LDL CHOLESTEROL 50.8 MG/DL (<100); NON-HDL-C 82.8 MG/DL; POTASSIUM SERUM 3.8 MMOL/L (3.5-5.1); SODIUM LEVEL 140 MMOL/L (136-145); TOTAL PROTEIN 7.5 G/DL (5.7-8.2); TRIGLYCERIDES LEVEL 160 MG/DL (<150)
[2024-04-19 17:09] LABS: FERRITIN 16.6 NG/ML (7.3-270.7)
[2024-04-19 17:10] LABS: FREE T4 1.04 NG/DL (0.89-1.76); THYROID STIMULATING HORMONE 1.191 uIU/ML (0.55-4.78)
== END ==
LOC: M SFHCPLAZ 09:32
PROVIDERS: ATTEND Family Medicine
DX: E03.9 Hypothyroidism, unspecified (principal); K76.0 Fatty (change of) liver, not elsewhere classified; D50.9 Iron deficiency anemia, unspecified; E78.2 Mixed hyperlipidemia; R73.01 Impaired fasting glucose

== ENCOUNTER → 2024-04-24 | Outpatient (REF) | payer MEDICARE, MEDICAID ==
[2024-04-24 15:34] LABS: APPEARANCE, URINE HAZY (CLEAR); BACTERIA, URINE AUTO 1+ (NEGATIVE); BILIRUBIN, URINE AUTO NEGATIVE (NEGATIVE); BLOOD, URINE BLOOD 1+ (NEGATIVE); COLOR, URINE YELLOW (YELLOW); GLUCOSE, URINE (UA) AUTO NEGATIVE (NEGATIVE); KETONE, URINE AUTO NEGATIVE (NEGATIVE); LEUKOCYTE ESTERASE, URINE AUTO 1+ (NEGATIVE); MUCUS, URINE SMALL (NEGATIVE); NITRITE, URINE AUTO NEGATIVE (NEGATIVE); PROTEIN, URINE AUTO 1+ mg/dL (NEGATIVE); RBC, URINE AUTO 2 /HPF (0-3); SQUAMOUS EPITHELIAL CELL UR AU 1 /HPF (0-6); UROBILINOGEN, URINE AUTO 0.2 mg/dL (0.0-2.0); WBC, URINE AUTO 11 /HPF (0-3)
== END ==
LOC: M SFHCPLAZ 14:23
PROVIDERS: ATTEND Family Medicine
DX: N39.0 Urinary tract infection, site not specified (principal)

== ENCOUNTER → 2024-05-19 | Outpatient (REF) | payer MEDICARE, MEDICAID ==
[2024-05-19 14:00] LABS: APPEARANCE, URINE CLEAR (CLEAR); BACTERIA, URINE AUTO 1+ (NEGATIVE); BILIRUBIN, URINE AUTO NEGATIVE (NEGATIVE); BLOOD, URINE BLOOD 1+ (NEGATIVE); COLOR, URINE YELLOW (YELLOW); GLUCOSE, URINE (UA) AUTO NEGATIVE (NEGATIVE); KETONE, URINE AUTO NEGATIVE (NEGATIVE); LEUKOCYTE ESTERASE, URINE AUTO NEGATIVE (NEGATIVE); NITRITE, URINE AUTO NEGATIVE (NEGATIVE); PROTEIN, URINE AUTO NEGATIVE (NEGATIVE); RBC, URINE AUTO 0 /HPF (0-3); SPECIFIC GRAVITY URINE AUTO 1.006 (1.002-1.035); SQUAMOUS EPITHELIAL CELL UR AU 1 /HPF (0-6); UROBILINOGEN, URINE AUTO 0.2 mg/dL (0.0-2.0); WBC, URINE AUTO 0 /HPF (0-3)
== END ==
LOC: M SFHCPLAZ 12:38
DX: R39.9 Unspecified symptoms and signs involving the genitourinary system (principal)

== ENCOUNTER → 2024-05-30 | Outpatient (CLI) | payer MEDICARE, MEDICAID ==
[~2024-05-30] MED LIST changes: +ISOVUE-300 61% 100ML VIAL As Ordered ONE; +ISOVUE-370 76% 100ML VIAL As Ordered ONE; +LIDOCAINE 1% MDV 20ML VIAL As Ordered ONE; +LIRA0.6P SQ; +MELO15TA28 PO
== END ==
LOC: M RAD 12:30
PROVIDERS: ATTEND Family Medicine
DX: M25.812 Other specified joint disorders, left shoulder (principal); Z95.0 Presence of cardiac pacemaker
CPT/HCPCS: 23350; 73201; 77002; Q9967

== ENCOUNTER 2024-06-07 07:50 | Day surgery (SDC) | payer MEDICARE, MEDICAID ==
[~2024-06-07] VITALS: Ht 160 cm; Wt 81.6 kg
[~2024-06-07 07:50] MED LIST changes: -ISOVUE-300 61% 100ML VIAL As Ordered ONE; -ISOVUE-370 76% 100ML VIAL As Ordered ONE; -LIDOCAINE 1% MDV 20ML VIAL As Ordered ONE
[2024-06-07] MEDS ORDERED: propofoL 200 MG/20 ML VIAL As Ordered ONE (09:13)
[2024-06-07 09:58] VITALS: TEMP 99.3
[2024-06-07] MEDS ORDERED: IPRATROPIUM 0.5MG/ALBUTEROL 2.5MG INH SOL UD 3ML (DUONEB) As Ordered ONE (10:08)
[2024-06-07 10:25] VITALS: BP 145/61; O2SAT 99
== END 2024-06-07 10:50 | disposition home or self-care (01) ==
LOC: M OPP 07:50
PROVIDERS: ATTEND Internal Medicine Gastroenterology
DX: Z12.11 Encounter for screening for malignant neoplasm of colon (principal); K64.0 First degree hemorrhoids; K57.30 Diverticulosis of large intestine without perforation or abscess without bleeding; G47.30 Sleep apnea, unspecified; Z95.0 Presence of cardiac pacemaker; Z79.84 Long term (current) use of oral hypoglycemic drugs; Z79.85 Long-term (current) use of injectable non-insulin antidiabetic drugs; Z79.899 Other long term (current) drug therapy

== ENCOUNTER → 2024-06-21 | Outpatient (REF) | payer MEDICARE, MEDICAID ==
[2024-06-21 15:57] LABS: APPEARANCE, URINE CLEAR (CLEAR); BACTERIA, URINE AUTO NEGATIVE (NEGATIVE); BILIRUBIN, URINE AUTO NEGATIVE (NEGATIVE); BLOOD, URINE BLOOD 1+ (NEGATIVE); COLOR, URINE YELLOW (YELLOW); GLUCOSE, URINE (UA) AUTO NEGATIVE (NEGATIVE); KETONE, URINE AUTO NEGATIVE (NEGATIVE); LEUKOCYTE ESTERASE, URINE AUTO NEGATIVE (NEGATIVE); MUCUS, URINE SMALL (NEGATIVE); NITRITE, URINE AUTO NEGATIVE (NEGATIVE); PROTEIN, URINE AUTO NEGATIVE (NEGATIVE); RBC, URINE AUTO 1 /HPF (0-3); SPECIFIC GRAVITY URINE AUTO 1.011 (1.002-1.035); SQUAMOUS EPITHELIAL CELL UR AU 1 /HPF (0-6); UROBILINOGEN, URINE AUTO 0.2 mg/dL (0.0-2.0); WBC, URINE AUTO 0 /HPF (0-3)
== END ==
LOC: M LAB REF 15:21
PROVIDERS: ATTEND Specialist
DX: N39.0 Urinary tract infection, site not specified (principal)

== ENCOUNTER → 2024-07-27 | Outpatient (CLI) | payer MEDICARE, MEDICAID | LOC: M WHC 10:53 | PROVIDERS: ATTEND Family Medicine | DX: Z12.31 Encounter for screening mammogram for malignant neoplasm of breast (principal); R92.313 Mammographic fatty tissue density, bilateral breasts ==

== ENCOUNTER → 2024-08-10 | Outpatient (REF) | payer MEDICARE, MEDICAID ==
[~2024-08-10] MED LIST changes: +DENO60SY2 SC; -PROL60SO SC
[2024-08-10 18:21] LABS: APPEARANCE, URINE HAZY (CLEAR); BACTERIA, URINE AUTO 1+ (NEGATIVE); BILIRUBIN, URINE AUTO NEGATIVE (NEGATIVE); BLOOD, URINE BLOOD NEGATIVE (NEGATIVE); COLOR, URINE YELLOW (YELLOW); GLUCOSE, URINE (UA) AUTO NEGATIVE (NEGATIVE); KETONE, URINE AUTO TRACE mg/dL (NEGATIVE); LEUKOCYTE ESTERASE, URINE AUTO NEGATIVE (NEGATIVE); MUCUS, URINE SMALL (NEGATIVE); NITRITE, URINE AUTO POSITIVE (NEGATIVE); PROTEIN, URINE AUTO NEGATIVE (NEGATIVE); RBC, URINE AUTO 1 /HPF (0-3); SPECIFIC GRAVITY URINE AUTO 1.018 (1.002-1.035); SQUAMOUS EPITHELIAL CELL UR AU 1 /HPF (0-6); UROBILINOGEN, URINE AUTO 0.2 mg/dL (0.0-2.0); WBC, URINE AUTO 2 /HPF (0-3)
== END ==
LOC: M SMT 17:12
PROVIDERS: ATTEND Specialist
DX: N32.9 Bladder disorder, unspecified (principal); Z79.899 Other long term (current) drug therapy

== ENCOUNTER → 2024-08-11 | Outpatient (CLI) | payer MEDICARE, MEDICAID ==
[2024-08-11 14:11] LABS: BASO # 0.1 10^3/uL (0.0-0.2); BASO % 0.7 % (0.0-1.0); EOS # 0.2 10^3/uL (0.0-0.5); EOS % 1.9 % (0.0-3.0); HEMATOCRIT 38.6 % (36.0-47.0); HEMOGLOBIN 12.4 g/dl (12.0-15.5); LYMPH # 1.7 10^3/uL (1.5-5.0); LYMPH % 19.4 % (24.0-44.0); MEAN CORPUSCULAR HEMOGLOBIN 28.2 pg (27.0-33.0); MEAN CORPUSCULAR HGB CONC 32.1 g/dl (32.0-36.5); MEAN CORPUSCULAR VOLUME 87.9 fl (80.0-96.0); MONO # 0.8 10^3/uL (0.0-0.8); MONO % 9.4 % (2.0-8.0); NEUTROPHILS % 67.9 % (36.0-66.0); PLATELET COUNT, AUTOMATED 282 10^3/uL (150-450); RED BLOOD COUNT 4.39 10^6/uL (4.00-5.40); WHITE BLOOD COUNT 8.8 10^3/uL (4.0-10.0)
[2024-08-11 14:36] LABS: ALKALINE PHOSPHATASE 76 U/L (35-104); ALT/SGPT 66 U/L (7.0-40); AST/SGOT 53 U/L (<34); BILIRUBIN,TOTAL 0.3 MG/DL (0.3-1.2); BLOOD UREA NITROGEN 14 MG/DL (9-23); CALCIUM LEVEL 9.1 MG/DL (8.3-10.6); CARBON DIOXIDE LEVEL 24 MMOL/L (20-31); CHLORIDE LEVEL 106 MMOL/L (98-107); CREATININE FOR GFR 0.78 MG/DL (0.55-1.30); FERRITIN 18.9 NG/ML (7.3-270.7); FREE T4 1.11 NG/DL (0.89-1.76); GLOMERULAR FILTRATION RATE > 60.0 (>45); GLUCOSE, FASTING 79 MG/DL (74-106); POTASSIUM SERUM 4.5 MMOL/L (3.5-5.1); SODIUM LEVEL 139 MMOL/L (136-145); THYROID STIMULATING HORMONE 0.663 uIU/ML (0.55-4.78); TOTAL PROTEIN 7.2 G/DL (5.7-8.2)
[2024-08-11 14:37] LABS: VITAMIN B12 LEVEL 1078 PG/ML (211-911)
[2024-08-11 14:41] LABS: HEMOGLOBIN A1c 5.3 % (4.0-6.0)
== END ==
LOC: M PLALAB 12:08
PROVIDERS: ATTEND Family Medicine
DX: D50.9 Iron deficiency anemia, unspecified (principal); K76.0 Fatty (change of) liver, not elsewhere classified; E03.9 Hypothyroidism, unspecified; R73.01 Impaired fasting glucose; E53.8 Deficiency of other specified B group vitamins

== ENCOUNTER → 2024-09-15 | Outpatient (CLI) | payer MEDICARE, MEDICAID | LOC: M RAD 12:40 | PROVIDERS: ATTEND Family Medicine | DX: Z12.2 Encounter for screening for malignant neoplasm of respiratory organs (principal); Z87.891 Personal history of nicotine dependence; J43.9 Emphysema, unspecified; K44.9 Diaphragmatic hernia without obstruction or gangrene ==

== ENCOUNTER → 2024-12-14 | Outpatient (REF) | payer MEDICARE, MEDICAID ==
[~2024-12-14] MED LIST changes: -BUPR-597 PO; +BUPR-766 PO
[2024-12-14 18:39] LABS: ALT/SGPT 32.0 U/L (7.0-40); AST/SGOT 28.0 U/L (<34); BASO # 0.1 10^3/uL (0.0-0.2); BASO % 0.7 % (0.0-1.0); CALCIUM LEVEL 9.6 MG/DL (8.3-10.6); CARBON DIOXIDE LEVEL 23.0 MMOL/L (20-31); CHLORIDE LEVEL 106.0 MMOL/L (98-107); CHOLESTEROL LEVEL 115.0 MG/DL (<200); CHOLESTEROL RISK RATIO 2.27 (<5); CREATININE FOR GFR 0.85 MG/DL (0.55-1.30); EOS # 0.1 10^3/uL (0.0-0.5); EOS % 1.4 % (0.0-3.0); FREE T4 1.25 NG/DL (0.89-1.76); GLOMERULAR FILTRATION RATE 76.5 (>45); LDL CHOLESTEROL 42.0 MG/DL (<100); LYMPH # 1.9 10^3/uL (1.5-5.0); LYMPH % 26.4 % (24.0-44.0); MONO # 0.8 10^3/uL (0.0-0.8); MONO % 11.3 % (2.0-8.0); NEUTROPHILS # 4.3 10^3/uL (1.5-8.5); NEUTROPHILS % 59.8 % (36.0-66.0); NON-HDL-C 64.4 MG/DL; PLATELET COUNT, AUTOMATED 273 10^3/uL (150-450); POTASSIUM SERUM 4.5 MMOL/L (3.5-5.1); SODIUM LEVEL 142.0 MMOL/L (136-145); TOTAL 25(OH) VITAMIN D 37.0 NG/ML (20.0-100.0); TRIGLYCERIDES LEVEL 112.0 MG/DL (<150)
[2024-12-14 18:40] LABS: PTH INTACT 70.5 PG/ML (18.5-88.0)
[2024-12-14 18:53] LABS: ESTIMATED AVERAGE GLUCOSE 108.0 MG/DL (60-110)
== END ==
LOC: M SFHCPLAZ 13:07
PROVIDERS: ATTEND Family Medicine
DX: E03.9 Hypothyroidism, unspecified (principal); R73.01 Impaired fasting glucose; E55.9 Vitamin D deficiency, unspecified; D50.9 Iron deficiency anemia, unspecified

== ENCOUNTER → 2025-01-04 | Outpatient (CLI) | payer MEDICARE, MEDICAID ==
[~2025-01-04] MED LIST changes: +METH54TA13 PO; -METH54TA5 PO
== END ==
LOC: M PLAIMG 15:32
PROVIDERS: ATTEND Family Medicine
DX: M70.61 Trochanteric bursitis, right hip (principal)

== ENCOUNTER → 2025-02-14 | Outpatient (REF) | payer MEDICARE, MEDICAID ==
[~2025-02-14] MED LIST changes: +METH-1100 PO; -METH-855 PO
== END ==
LOC: M SMT 14:43
PROVIDERS: ATTEND Urology
DX: N39.0 Urinary tract infection, site not specified (principal)

== ENCOUNTER → 2025-04-30 | Outpatient (CLI) | payer MEDICARE, MEDICAID ==
[2025-04-30 15:11] LABS: BASO # 0.0 10^3/uL (0.0-0.2); BASO % 0.5 % (0.0-1.0); EOS # 0.1 10^3/uL (0.0-0.5); EOS % 1.2 % (0.0-3.0); LYMPH # 2.0 10^3/uL (1.5-5.0); LYMPH % 26.7 % (24.0-44.0); MONO # 0.7 10^3/uL (0.0-0.8); MONO % 9.5 % (2.0-8.0); NEUTROPHILS # 4.5 10^3/uL (1.5-8.5); NEUTROPHILS % 61.7 % (36.0-66.0); PLATELET COUNT, AUTOMATED 307 10^3/uL (150-450)
[2025-04-30 15:18] LABS: ALT/SGPT 18.0 U/L (7.0-40); AST/SGOT 20.0 U/L (<34); CALCIUM LEVEL 9.6 MG/DL (8.3-10.6); CARBON DIOXIDE LEVEL 26.0 MMOL/L (20-31); CHLORIDE LEVEL 106.0 MMOL/L (98-107); CHOLESTEROL LEVEL 150.0 MG/DL (<200); CHOLESTEROL RISK RATIO 2.89 (<5); CREATININE FOR GFR 0.84 MG/DL (0.55-1.30); GLOMERULAR FILTRATION RATE 77.6 (>45); LDL CHOLESTEROL 66.9 MG/DL (<100); NON-HDL-C 98.1 MG/DL; POTASSIUM SERUM 4.3 MMOL/L (3.5-5.1); SODIUM LEVEL 144.0 MMOL/L (136-145); TRIGLYCERIDES LEVEL 156.0 MG/DL (<150)
[2025-04-30 15:19] LABS: FREE T4 1.2 NG/DL (0.89-1.76)
[2025-04-30 15:21] LABS: VITAMIN B12 LEVEL 591.0 PG/ML (211-911)
[2025-04-30 15:36] LABS: ESTIMATED AVERAGE GLUCOSE 117.0 MG/DL (60-110)
[2025-05-02 11:07] LABS: INSULIN LEVEL 19.9 uIU/mL (<=18.4)
[2025-05-05 18:48] LABS: ENHANCED LIVER FIBROSIS SCORE 9.95 (<9.80)
== END ==
LOC: M PLALAB 12:34
PROVIDERS: ATTEND Family Medicine
DX: R73.01 Impaired fasting glucose (principal); E78.2 Mixed hyperlipidemia; K76.0 Fatty (change of) liver, not elsewhere classified; D50.9 Iron deficiency anemia, unspecified